=== PATIENT | female | born 1980 | race Caucasian/White ===

== ENCOUNTER 2021-06-19 09:13 | Emergency (ER) | payer MEDICAID, SELFPAY ==
[2021-06-19 09:23] VITALS: BP 155/92; PULSE 94; RESP 16; TEMP 36.4; O2SAT 97
--- NOTE | 2021-06-19 09:30 | DI.RAD_ITS ---
Exam(s) XR ELBOW LT COMPLETE XR HUMERUS LT EXAM: XR HUMERUS LT CLINICAL HISTORY: fall with upper arm pain TECHNIQUE: COMPARISON: CR XR ELBOW LT COMPLETE from 06/19/2021 FINDINGS: Two views of the humerus and three views of the elbow were obtained. There is no evidence of an elbo w joint effusion or hemarthrosis. No fracture is identified. IMPRESSION: RADIATION DOSE DELIVERED: Total DLP
[2021-06-19] MEDS: Ketorolac 30 MG/ML VIAL IM (10:23)
--- NOTE | 2021-06-19 10:33 | ED.GENADUL_ITS ---
Discharge Plan Disposition Patient Disposition: HOME Condition: Stable Discharge Details Clinical Impression: Pain of upper arm after trauma Primary Care Provider: Unknown,Unknown ED Provider: Raul You Home Meds and New Rx's Prescriptions: New ibuprofen [IBU] 600 mg tablet 600 mg PO QID PRN (Reason: pain) Qty: 20 0RF Discharge Instructions Instructions: Arm Pain (ED) Additional Instructions: At time of evaluation no acute fractures were noted for your elbow or upper arm. I suspect that the pain and discomfort may due to slight sprain or strain of the ligaments and muscles of your arm. It is recommended that you take [id number] acetaminophen as needed for discomfort. I have prescribed you ibuprofen as needed but please do not take this until after 6 PM today due to the medication you were given in the emergency department. If you are not improving in the next week please contact your primary care provider for reassessment and potential repeat imaging if needed. Please use the sling for comfort but remove the sling 3-4 times daily and perform range of motion and recommended not to use sling more than 3 days unless absolutely necessary. For any new or significant worsening of symptoms please return to the emergency department for reassessment. Discharge Data Discharge Date/Time-TO BE ENTERED AT DEPARTURE: 06/19/21 10:52 Medical Decision Making Patient presenting to the emergency department for chief complaint of fall. Patient reports left elbow and upper extremity discomfort. Patient does have painful range of motion but intact range of motion to upper extremity but states significant pain. Patient has diffuse tenderness and given amount of discomf ort plan to do radiological imaging to rule out fracture. Reviewed radiological imaging and shows no acute findings. Suspect strain/sprain of upper extremity conservative management was discussed and patient placed in sling with discussion of range of motion activities while in sling. After discussion of diagnosis and plan of care patient has no further needs, questions, or concerns and states clear understanding to return to the emergency department for any worsening symptoms. Imaging Data Radiologic Study: Imaging: X-Ray Radiologist's impression: FINDINGS: Two views of the humerus and three views of the elbow were obtained. There is no evidence of an elbow joint effusion or hemarthrosis. No fracture is identified. HPI General Mode of arrival: ambulatory . Date/Time Provider Initiated Documentation: 06/19/21 09:29 . Limitations to Documentation: no limitations . Information obtained by: patient . History of Present Illness 41 year old F presents to the emergency department with the chief complaint of fall left arm injury, described as moderate, with intensity rated at 7. Quality is described as aching, and is localized to the left and upper extremity. Patient reports no radiation. Patient started experiencing this day(s) (1) and it has been constant. improves with Immobilization improves symptom(s), Movement worsens symptoms . Patient notes no other symptoms.. Patient did receive the following treatments prior to arrival, none Related Data Home Medications Medication Instructions Recorded Confirmed ibuprofen 600 mg tablet (IBU) 600 mg PO QID PRN #20 tab 06/19/21 Previous Rx's Medication Instructions Recorded ibuprofen 600 mg tablet (IBU) 600 mg PO QID PRN #20 tab 06/19/21 Allergies Allergy/AdvReac Type Severity Reaction Status Date / Time No Known Allergies Allergy Unverified 06/19/21 09:26 General Stated Complaint: Orthopedic AGUSTIN: 4 Review of Systems Cardiovascular Cardiovascular: Denies chest pain, Denies syncope and Denies dyspnea Respiratory Respiratory: Denies dyspnea Gastrointestinal Gastrointestinal: Denies abdominal pain Musculoskeletal Musculoskeletal: Reports as per HPI, Denies numbness and Denies tingling Integumentary/Breasts Skin/Breast: Denies rash, Denies sores and Denies wounds Neurologic Neurologic: Denies syncope, Denies numbness and Denies tingling PFSH All Active Problems (Updated 06/19/21 @ 10:36 by Raul You NP) Pain of upper arm after trauma (Acute) Social History Smoking/Tobacco Use Status: Current every day Smoking risk assessment performed?: Yes Alcohol Intake: current Substance use type: does not use Do you feel safe at home: Yes Do you feel safe in your relationship?: Yes Exam Const General: cooperative and no acute distress Orientation: alert, awake and oriented x3 Resp Effort & Inspection: normal respiratory effort and able to speak in complete sentences Cardio Rate: regular rate Rhythm: regular rhythm Pulses: radial pulses present Extrem General: normal exam except as noted Left upper extremity: normal capillary refill, shoulder/upper arm Details: tenderness, elbow/forearm Details: tenderness Location: of the olecranon and normal ROM; Negative for no abrasions and no lacerations, wrist Details: normal to inspection and hand Details: normal to inspection; No no edema Course Vital Signs Vital signs: Vital Signs Temperature 36.4 C L 06/19/21 09:23 Pulse 94 H 06/19/21 09:23 Respiratory Rate 16 06/19/21 09:23 Blood Pressure 155/92 H 06/19/21 09:23 Pulse Oximetry 97 06/19/21 09:23 Temperature 36.4 C L 06/19/21 09:23 Temperature Source Skin 06/19/21 09:23 Pulse 94 H 06/19/21 09:23 Respiratory Rate 16 06/19/21 09:23 Respiratory Effort 06/19/21 09:27 Blood Pressure 155/92 H 06/19/21 09:23 Blood Pressure Position Sitting 06/19/21 09:23 Pulse Oximetry 97 06/19/21 09:23 Oxygen Delivery Method Room Air 06/19/21 09:23 Oxygen Flow Rate 0 06/19/21 09:23 Pain Level 7 06/19/21 10:23
== END 2021-06-19 10:52 | disposition home or self-care (01) ==
PROVIDERS: Emergency Provider Nurse Practitioner Family
DX: M25.522 Pain in left elbow (principal); W18.39XA Other fall on same level, initial encounter
CPT/HCPCS: 96372; 99284; 73060; 73080; 99283; J1885

== ENCOUNTER 2021-07-22 17:08 | Emergency (ER) | payer MEDICAID, SELFPAY ==
[2021-07-22 17:14] VITALS: BP 165/106; PULSE 95; RESP 14; TEMP 36.6; O2SAT 99
--- NOTE | 2021-07-22 17:26 | NUR.NOTE ---
Referral to establish care for PCP done and noted
--- NOTE | 2021-07-22 17:28 | ED.GENADUL_ITS ---
Discharge Plan Disposition Patient Disposition: HOME Condition: Good Discharge Details Clinical Impression: Elbow pain, left Primary Care Provider: Cecily,Local ED Provider: Nehal Mathis Home Meds and New Rx's Prescriptions: Continued acetaminophen [Acetaminophen Extra Strength] 500 mg Tablet 1,000 mg PO Q6H PRN0RF Discharge Instructions Instructions: Arthralgia (ED) Additional Instructions: Concerned that you have persistent pain after fall from 1 month ago. Your exam is not consistent with your fracture at this time. Images from previous visit was reviewed. I would like you to try an anti-inflammatory, preferably Aleve, twice a day for the next 7 days. Please encourage rest, ice or heat, elevation. A referral for physical therapy is attached. I have also asked our care management to assist in establishing local primary care for continued management of your elbow discomfort. If you develop numbness/tingling, pain, fever/chills or other new/worsening symptoms please seek care urgently once again. Stand Alone Forms: Physical Therapy Referral Medical Decision Making Patient is a pleasant [id number] 41-year-old female presents today for reevaluation of her left elbow. Patient was seen here 1 month ago for the same after fall. At that time, imaging was obtained and found to be without sign ificant abnormality. Patient reports that she does not have a local primary care, yet she has not had any follow-up. States that she has found beneficial. Has not been taking any NSAIDs or acetaminophen to help with her discomfort. States that the pain can wax and wane based on her activity level but does account occasion the pain can be quite significant. She denies any numbness or tingling. No other symptoms associated with her elbow discomfort. On exam, patient appears nontoxic. Exam of the left upper extremity shows full range of motion of the shoulder, wrist, elbow, hand. Neurovascularly intact. Her pain is directly over the posterior olecranon. No pain over the medial or lateral epicondyles. She has no pain with supination or pronation against resistance. Pain with palpation over the olecranon but no erythema, swelling coloration, palpable deformity. She is able to extend and resist against resistance with no appreciable defect. Patient I discussed her acute on chronic discomfort. Advised that NSAID for the next few days would likely be of benefit. I encouraged rest, ice, elevation. Given length of discomfort, I do feel that physical therapy would be appropr iate. As patient does not have a local primary care, I have also asked care management to refer to local PCP. Return cautions were discussed. All the questions and concerns were addressed and she is in agreement this plan. HPI General Date/Time Provider Initiated Documentation: 07/22/21 17:14 . Limitations to Documentation: no limitations . Information obtained by: patient, RN notes reviewed and old records reviewed . History of Present Illness 41 year old F presents to the emergency department with the chief complaint of posterior left elbow , described as severe, with intensity rated at 8. Quality is described as aching, and is localized to the left and upper extremity. Patient reports no radiation. Patient started experiencing this month(s) and it has been constant. improves with other things that improve symptom(s), (hot pack) Movement worsens symptoms . Patient notes no other symptoms.. Patient did receive the following treatments prior to arrival, heat therapy Related Data Home Medications Medication Instructions Recorded Confirmed acetaminophen 500 mg tablet 1,000 mg PO Q6H PRN 07/22/21 07/22/21 (Acetaminophen Extra Strength) Allergies Allergy/AdvReac Type Severity Reaction Status Date / Time No Known Allergies Allergy Unverified 06/19/21 09:26 General Stated Complaint: Orthopedic AGUSTIN: 4 Review of Systems Constitutional Constitutional: Reports as per HPI, Denies chills and Denies fever(s) Cardiovascular Cardiovascular: Reports as per HPI Respiratory Respiratory: Reports as per HPI and Denies cough Musculoskeletal Musculoskeletal: Reports as per HPI and Denies tingling Integumentary/Breasts Skin/Breast: Reports as per HPI, Denies rash and Denies wounds Neurologic Neurologic: Reports as per HPI, Denies tingling and Denies paresthesias [facility] All Active Problems (Updated 07/22/21 @ 17:40 by MCKENZIE Gonzales) Elbow pain, left (Acute) Social History Smoking/Tobacco Use Status: Current every day Smoking risk assessment performed?: Yes Alcohol Intake: current Alcohol Intake frequency: holidays/special occasions only Alcohol type: beer Drug use: Never Substance use type: does not use Do you feel safe at home: Yes Do you feel safe in your relationship?: Yes Exam Const General: cooperative, healthy appearing, comfortable, no acute distress, well developed and well groomed Nutritional Appearance: well nourished and overweight Orientation: alert and awake Resp Effort & Inspection: normal respiratory effort, able to speak in complete sentences and no respiratory distress Cardio Rate: regular rate Rhythm: regular rhythm Skin General skin exam: no rashes or lesions noted Lesions: no lesions Rashes: no rashes Trauma: no lacerations or abrasions Neuro General: patient alert and patient awake Cognition: normal cognition Speech: speech normal Gait: normal gait Motor: muscle tone normal throughout Sensory Exam: no sensory deficits noted Extrem Elbow/forearm/wrist images: 1. Area of maximal discomfort is directly over the left olecranon. Full range of motion of shoulder, elbow, wrist, hand. Neurovascularly intact. 2+ distal pulse, intact capillary refill. Patient has full intact neurologic exam in her hand. She has no pain over the medial or lateral epicondyles. Pain elicited with palpation over the olecranon. She has 5-5 strength with extension and flexion, no palpable defect, no swelling, erythema Psych Appearance: grossly normal and well kempt Mental Status: mental status grossly normal Speech and Movement: speech and movement normal Course Vital Signs Vital signs: Vital Signs Temperature 36.6 C 07/22/21 17:14 Pulse 95 H 07/22/21 17:14 Respiratory Rate 14 07/22/21 17:14 Blood Pressure 165/106 H 07/22/21 17:14 Pulse Oximetry 99 07/22/21 17:14 Temperature 36.6 C 07/22/21 17:14 Temperature Source Oral 07/22/21 17:14 Pulse 95 H 07/22/21 17:14 Respiratory Rate 14 07/22/21 17:14 Respiratory Effort Non-Labored 07/22/21 17:18 Blood Pressure 165/106 H 07/22/21 17:14 Blood Pressure Position Sitting 07/22/21 17:14 Pulse Oximetry 99 07/22/21 17:14 Oxygen Delivery Method Room Air 07/22/21 17:14 Oxygen Flow Rate 0 07/22/21 17:14 Pain Level 8 07/22/21 17:14 PAWSS Have you Been Recently Intoxicated or Drunk Within the Last 30 days?: No Have you Ever Experienced Previous Episodes of Alcohol Withdrawal?: No Have you ever Experienced Withdrawal Seizures?: No Have you ever Experienced Delirium Tremens(DT)s?: No Have you ever undergone Alcohol Rehabilitation Treatment (i.e, inpt ot outpatient treatment programs)?: No Have you ever Experienced Blackouts?: No Have you ever Combined Alcohol with other Downers within the last 90 days?: No Have you ever Combined Alcohol with any other Substance of Abuse during the last 90 days?: No Positive Blood Alcohol level on Presentation? [PCS.BAL]: No Evidence of Increased Autonomic Activity (i.e. HR>120, tremor, sweating, agitation, nausea)?: No Result: 0
[2021-07-22] MEDS: Acetaminophen 325 MG TAB 650 MG PO (17:44)
[2021-07-22] MEDS: Naproxen 250 MG TAB PO (17:44)
== END 2021-07-22 17:50 | disposition home or self-care (01) ==
PROVIDERS: Emergency Provider Physician Assistant
DX: M25.522 Pain in left elbow (principal)
CPT/HCPCS: 99282

== ENCOUNTER 2021-07-24 15:12 | Outpatient (REF) | payer MEDICAID, SELFPAY ==
--- NOTE | 2021-07-24 12:45 | PAPFT_PTH ---
PATIENT: Hilda Garcia LOC: [facility] U#:[id number] AGE/SX: 41/F ROOM: RE07/24/[address]: Iveth Knowles NP : 1980 BED: DIS: 07/24/2021 SPEC #: [id number] RECD: 07/24/21 18:08 STATUS: JESSIE PUENTES #: [id number] PATTI: 07/24/21 12:[address]: Iveth Knowles [facility]PT: [facility] Cytology RECD BY: Jesi Otero ENTERED: 07/24/21 18:09 SP TYPE: PAPFT BONGHR DR: Lynette Sosa APRN Tissues: 1 - CX/ENDOCX FOR PAP SMEARS Procedures: PAP THIN PREP/[facility] Screening HPV DNA PROBE Comments: [id number] (HPV 16 & 18/45)
[2021-07-24 19:02] LABS: HCT 36.9 % (36.0-46.0); HGB 12.3 g/dL (11.2-15.7); MCH 32.8 pg (27.0-33.0); MCHC 33.3 % (32.0-36.0); MCV 98.4 fL (80-95); MPV 12.4 fL (8.0-11.0); Platelet Count 263 10^3/uL (130-400); RBC 3.75 10^6/uL (3.93-5.22); RDW 13.3 % (11.7-14.6); RDW-SD 47.9 fL; WBC 8.53 10^3/uL (4.4-10.8)
[2021-07-24 19:52] LABS: TSH 0.77 uIU/mL (0.36-3.74)
== END 2021-07-24 15:13 | disposition home or self-care (01) ==
LOC: LBN 15:12
PROVIDERS: Visit Provider Nurse Practitioner Family
DX: N92.5 Other specified irregular menstruation (principal); Z12.4 Encounter for screening for malignant neoplasm of cervix; R87.810 Cervical high risk human papillomavirus (HPV) DNA test positive; Z11.51 Encounter for screening for human papillomavirus (HPV)
CPT/HCPCS: 85027; 88142; 84443; 87624

== ENCOUNTER 2021-08-19 10:04 | Emergency (ER) | payer MEDICAID, SELFPAY ==
[2021-08-19 10:08] VITALS: BP 174/101; PULSE 83; RESP 17; TEMP 36.6; O2SAT 99
--- NOTE | 2021-08-19 10:27 | W.ED.GENAD ---
Discharge Plan Disposition Patient Disposition: HOME Condition: Improving Discharge Details Chief Complaint: DentalOral Clinical Impression: Pain, dental Primary Care Provider: Lynette Sosa ED Provider: Willie Amin Home Meds and New Rx's Prescriptions: No Action acetaminophen [Acetaminophen Extra Strength] 500 mg Tablet 1,000 mg PO Q6H PRN0RF Discharge Instructions Instructions: Toothache (ED) Additional Instructions: Please try to contact [facility] at , [facility] for urgent evaluation by dentist. You could also try Dr. Suárez at , [address] . Please return to the emergency department if you develop facial swelling redness worsening uncontrolled pain fevers or other abnormal symptoms Medical Decision Making 41-year-old female presents with right upper and right lower molar dental pain over the past 2 weeks, no fever chills nausea vomiting swelling or redness, evidence of chronic appearing dental fractures right upper and right lower molar most posteriorly, no evidence of periapical abscess no evidence of deep space infection of head or neck. Nontoxic. Her dentist is booked for several weeks, will encourage dental follow-up as she will likely need a root canal, will provide bupivacaine dental block for temporary comfort, counseled patient to use appropriate doses of ibuprofen and acetaminophen as needed. Return for signs of infection. 2 cc of 0.5% bupivacaine periapical block right upper molar, 2 cc of 0.5% bupivacaine periapical and inferior alveolar block right lower molar. Patient encouraged to follow-up with dental referrals. HPI General Date/Time Provider Initiated Documentation: 08/19/21 10:05. HPI Narrative: 41-year-old female presents with 2 weeks of dental pain right upper and right lower molars, denies fevers chills purulent drainage swelling or redness to face, no recent trauma, remotely fractured upper back molar Related Data Home Medications Medication Instructions Recorded Confirmed acetaminophen 500 mg tablet 1,000 mg PO Q6H PRN 07/22/21 08/19/21 (Acetaminophen Extra Strength) Allergies Allergy/AdvReac Type Severity Reaction Status Date / Time No Known Allergies Allergy Unverified 08/19/21 10:15 General Stated Complaint: DentalOral AGUSTIN: 4 Review of Systems Narrative: Review of Systems Constitutional: negative Eyes: negative ENT: Dental pain Cardiovascular: negative Respiratory: negative Gastrointestinal: negative : negative Musculoskeletal: negative Skin: negative Neurologic: negative Psych: negative PFSH All Active Problems (Updated 08/19/21 @ 10:50 by Willie Amin MD) Pain, dental (Acute) Elbow pain, left (Acute) Family History (Updated 07/26/21 @ 10:11 by Aundrea Wyatt) Mother No problems noted. Father No problems noted. Sister No problems noted. Brother No problems noted. Son No problems noted. Son No problems noted. Daughter No problems noted. Maternal Grandmother , 85 No problems noted. Social History (Updated 07/26/21 @ 10:10 by Aundrea Wyatt) Smoking/Tobacco Use Status: Current every day Tobacco Type: cigarettes Tobacco: How many years used: 5 Quit status: not considering quitting Second Hand Exposure: No Smoking risk assessment performed?: Yes Alcohol Intake: current Alcohol Intake frequency: holidays/special occasions only Drug use: Never Substance use type: does not use Household members: significant other Communication Needs: None Do you need help understanding health information?: Never Pets and animals: No Sexually active: Yes Do you think of yourself as: straight/heterosexual Current gender identity: male What is your relationship status?: refused to answer How often do you talk on the phone with friends or family?: decline to answer How often do you get together with friends or relatives?: decline to answer How often do you attend adventism or methodist services?: decline to answer Do you belong to any clubs or organized social groups?: decline to answer Panel score (0-1 are the most socially isolated patients): 0 What type of physical activity do you participate in: walking Duration: 15-30 minutes/day Frequency: 1-2 times per week Genevieve/Yazdanism: Temple Special genevieve needs: No Helmet use: No Drive intox or ride w/intox trolley 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 driver: No Do you feel safe at home: Yes Do you feel safe in your relationship?: Yes Exam Narrative Exam Narrative: Physical Examination General: alert, awake, cooperative, resting comfortably, no acute distress HEENT: Evidence of old dental fracture right upper molar most posteriorly, evidence of fractured molar right inferior molar most posteriorly, no induration or swelling to suggest periapical abscess or deep space infection ; normal voice tolerating secretions; atraumatic; PERRL, EOM intact, conjunctiva normal; no nasal discharge; moist mucous membranes, oral and pharyngeal mucosa normal, tolerating secretions Neck: supple, trachea midline; full ROM; no swelling to head or neck Chest: normal to inspection Respiratory: normal respiratory effort, speaking in full sentences, clear to auscultation, no wheezing, rales or rhonchi Cardiac: regular rate, regular rhythm, S1S2 intact, no murmurs rubs or gallops GI: abdomen soft, non-tender, non-distended; no palpable mass or hepatosplenomegaly Skin: no lesions, rashes or trauma appreciated Neuro: AAOx3, normal speech, moving all extremities Psych: Appropriate mood and affect Course Vital Signs Vital signs: Vital Signs Temperature 36.6 C 08/19/21 10:08 Pulse 83 08/19/21 10:08 Respiratory Rate 17 08/19/21 10:08 Blood Pressure 174/101 H 08/19/21 10:08 Pulse Oximetry 99 08/19/21 10:08 Temperature 36.6 C 08/19/21 10:08 Pulse 83 08/19/21 10:08 Respiratory Rate 17 08/19/21 10:08 Respiratory Effort Non-Labored 08/19/21 10:12 Blood Pressure 174/101 H 08/19/21 10:08 Blood Pressure Position Sitting 08/19/21 10:08 Pulse Oximetry 99 08/19/21 10:08 Oxygen Delivery Method Room Air 08/19/21 10:08 Oxygen Flow Rate 0 08/19/21 10:08 Pain Level 10 08/19/21 10:12 PAWSS Have you Been Recently Intoxicated or Drunk Within the Last 30 days?: No Have you Ever Experienced Previous Episodes of Alcohol Withdrawal?: No Have you ever Experienced Withdrawal Seizures?: No Have you ever undergone Alcohol Rehabilitation Treatment (i.e, inpt ot outpatient treatment programs)?: No Have you ever Experienced Blackouts?: No Have you ever Combined Alcohol with other Downers within the last 90 days?: No Have you ever Combined Alcohol with any other Substance of Abuse during the last 90 days?: No Positive Blood Alcohol level on Presentation? [PCS.BAL]: No Evidence of Increased Autonomic Activity (i.e. HR>120, tremor, sweating, agitation, nausea)?: No Result: 0
[2021-08-19] MEDS: Bupivacaine 0.5% Pres-Free 30 ML VIAL IJ (10:55)
== END 2021-08-19 10:53 | disposition home or self-care (01) ==
PROVIDERS: Emergency Provider Emergency Medicine
DX: K08.89 Other specified disorders of teeth and supporting structures (principal)
CPT/HCPCS: 64400

== ENCOUNTER 2021-08-24 19:31 | Emergency (ER) | payer MEDICAID, SELFPAY ==
[2021-08-24 19:47] VITALS: BP 164/104; PULSE 93; RESP 18; TEMP 36.6; O2SAT 98
--- NOTE | 2021-08-24 20:21 | W.ED.GENAD ---
Discharge Plan Disposition Patient Disposition: HOME Condition: Improving Discharge Details Clinical Impression: Pain, dental Primary Care Provider: Lynette Sosa ED Provider: Gamal Huynh Home Meds and New Rx's Prescriptions: New amoxicillin 875 mg tablet 875 mg PO BID Qty: 20 0RF Continued acetaminophen [Acetaminophen Extra Strength] 500 mg Tablet 1,000 mg PO Q6H PRN0RF Discharge Instructions Instructions: Toothache (ED) Additional Instructions: Amoxicillin as directed. Cool and/or warm compresses every 2 hours for 20 minutes. HurriCaine gel as directed. Salt water swish and spit as tolerated. I strongly recommend she quit smoking. Please watch for new or worsening symptoms and return to the ER for any concerns. Lastly, please contact your dentist and all of the dentist on the dental list on Thursday to see if they can see you sooner than your scheduled appointment in October. Medical Decision Making 41-year-old female, current smoker, reports acute on chronic dental pain for at least the past 3 weeks. She was seen in the ER 5 days ago, given a dental block, treating self therapeutically with Tylenol and Motrin, but reports it is not improving. Clinically she appears well, nontoxic. She tells me that the 2 dental fractures are not new. Given her ongoing discomfort, we discussed the risks and benefits of initiating antibiotic therapy she is open to this. She understands that a dental block is temporary, instead will provide HurriCaine gel for topical application. First dose of amoxicillin was also provided. First dose of amoxicillin given. Patient states that she was already given a dental list, contacted all of her dentist on the list and cannot be seen until October. Standard discharge and return precautions were provided. Patient understands, is agreeable to this plan, and has no additional questions or concerns upon discharge. This documentation was generated using Kitchenbugation system, please disregard any oddities of phrase or misspellings. Medical Records Medical records reviewed: Yes I reviewed the patient's medical records. HPI General Mode of arrival: ambulatory. Date/Time Provider Initiated Documentation: 08/24/21 20:07. Limitations to Documentation: no limitations. Information obtained by: patient. History of Present Illness 41 year old F presents to the emergency department with the chief complaint of R sided dental pain, described as moderate, with intensity rated at 7. Quality is described as aching, and is localized to the mouth. Patient reports no radiation. Patient started experiencing this week(s) (3) improves with No relieving factors improve symptom(s), Eating worsens symptoms . Patient notes no other symptoms.. Patient did receive the following treatments prior to arrival, NSAID Related Data Home Medications Medication Instructions Recorded Confirmed acetaminophen 500 mg tablet 1,000 mg PO Q6H PRN 07/22/21 08/19/21 (Acetaminophen Extra Strength) amoxicillin 875 mg tablet 875 mg PO BID #20 tab 08/24/21 Previous Rx's Medication Instructions Recorded amoxicillin 875 mg tablet 875 mg PO BID #20 tab 08/24/21 Allergies Allergy/AdvReac Type Severity Reaction Status Date / Time No Known Allergies Allergy Unverified 08/19/21 10:15 General Stated Complaint: DentalOral AGUSTIN: 4 Review of Systems Constitutional Constitutional: Denies fever(s) and Denies headache(s) ENT Ears, Nose, Mouth, and Throat: Denies headache(s), Denies neck pain and Denies sore throat Musculoskeletal Musculoskeletal: Denies neck pain Integumentary/Breasts Skin/Breast: Denies rash Neurologic Neurologic: Denies headache(s) PFSH All Active Problems Pain, dental (Acute) Family History Mother No problems noted. Father No problems noted. Sister No problems noted. Brother No problems noted. Son No problems noted. Son No problems noted. Daughter No problems noted. Maternal Grandmother , 85 No problems noted. Social History Smoking/Tobacco Use Status: Current every day Tobacco Type: cigarettes Tobacco: How many years used: 5 Quit status: not considering quitting Second Hand Exposure: No Smoking risk assessment performed?: Yes Alcohol Intake: current Alcohol Intake frequency: holidays/special occasions only Drug use: Never Substance use type: does not use Household members: significant other Communication Needs: None Do you need help understanding health information?: Never Pets and animals: No Sexually active: Yes Do you think of yourself as: straight/heterosexual Current gender identity: male What is your relationship status?: refused to answer How often do you talk on the phone with friends or family?: decline to answer How often do you get together with friends or relatives?: decline to answer How often do you attend synagogue or latter day services?: decline to answer Do you belong to any clubs or organized social groups?: decline to answer Panel score (0-1 are the most socially isolated patients): 0 What type of physical activity do you participate in: walking Duration: 15-30 minutes/day Frequency: 1-2 times per week Genevieve/Anglican: Gnosticism Special genevieve needs: No Helmet use: No Drive intox or ride w/intox electric train driver: No Do you feel safe at home: Yes Do you feel safe in your relationship?: Yes Exam Const General: cooperative, healthy appearing, comfortable and no acute distress Orientation: alert and awake HENMT Head: normal to inspection, normocephalic and atraumatic Ears: external ears normal, TM's normal bilaterally and EAC's normal Face and sinus: normal facial exam Mouth: oral mucosae normal and moist mucous membranes Teeth and gingiva: poor dentition Teeth image: 1. Dental fracture 2. Dental fracture Throat: posterior oropharynx normal Other: Patient with 2 right inferior dental fractures, per patient these are not new. There is diffuse tenderness from tooth [address] 31. There is no obvious erythema, swelling, pointing abscess. There is no asymmetry. No trismus Eyes General: appearance normal, both eyes and all related structures Conjunctivae: conjunctivae normal Neck Neck: normal visual inspection, full ROM, no lymphadenopathy, no meningeal signs, trachea midline and supple Resp Effort & Inspection: normal respiratory effort and able to speak in complete sentences Skin General skin exam: no rashes or lesions noted Neuro General: patient alert, patient awake, moves all extremities and no focal motor deficits Cognition: normal cognition Speech: speech normal Gait: normal gait Sensory Exam: no sensory deficits noted Psych Appearance: grossly normal Mental Status: mental status grossly normal Course Vital Signs Vital signs: Vital Signs Temperature 36.6 C 08/24/21 19:47 Pulse 93 H 08/24/21 19:47 Respiratory Rate 18 08/24/21 19:47 Blood Pressure 164/104 H 08/24/21 19:47 Pulse Oximetry 98 08/24/21 19:47 Temperature 36.6 C 08/24/21 19:47 Temperature Source Tympanic 08/24/21 19:47 Pulse 93 H 08/24/21 19:47 Respiratory Rate 18 08/24/21 19:47 Respiratory Effort 08/24/21 19:49 Blood Pressure 164/104 H 08/24/21 19:47 Blood Pressure Position Supine 08/24/21 19:47 Pulse Oximetry 98 08/24/21 19:47 Oxygen Delivery Method Room Air 08/24/21 19:47 Oxygen Flow Rate 0 08/24/21 19:47 Pain Level 10 08/24/21 19:47 PAWSS Have you Been Recently Intoxicated or Drunk Within the Last 30 days?: No Have you Ever Experienced Previous Episodes of Alcohol Withdrawal?: No Have you ever Experienced Withdrawal Seizures?: No Have you ever Experienced Delirium Tremens(DT)s?: No Have you ever undergone Alcohol Rehabilitation Treatment (i.e, inpt ot outpatient treatment programs)?: No Have you ever Experienced Blackouts?: No Have you ever Combined Alcohol with other Downers within the last 90 days?: No Have you ever Combined Alcohol with any other Substance of Abuse during the last 90 days?: No Positive Blood Alcohol level on Presentation? [PCS.BAL]: No Evidence of Increased Autonomic Activity (i.e. HR>120, tremor, sweating, agitation, nausea)?: No Result: 0
[2021-08-24] MEDS: Benzocaine 20% Gel 30 GM JAR MM (20:26)
[2021-08-24] MEDS: Amoxicillin 875 MG TAB PO (20:26)
== END 2021-08-24 20:29 | disposition home or self-care (01) ==
PROVIDERS: Emergency Provider Physician Assistant
DX: K08.89 Other specified disorders of teeth and supporting structures (principal)
CPT/HCPCS: 99283

== ENCOUNTER → 2021-08-26 00:36 | Outpatient (CLI) | payer MEDICAID, SELFPAY ==
--- NOTE | 2021-08-26 06:45 | DI.US_ITS ---
Exam(s) US PELVIS TRANSVAGINAL EXAM: US PELVIS TRANSVAGINAL CLINICAL HISTORY: eval for fibroids, uterine mass,n93.9 TECHNIQUE: Transabdominal and transvaginal imaging was performed using standard protocol. COMPARISON: No exams were available for comparison FINDINGS: KIDNEYS: Kidneys are symmetric in size. No evidence of renal calculi. No evidence of hydronephrosis. No renal mass or cyst identified. UTERUS: Anteverted. 9.3 x 3.6 x 5.6 cm. scar. Endometrium: 11 millimeters, homogeneous. Myometrium: Unremarkable. No fibroids. Cervix: Small nabothian cysts. OVARIES: Right: Cyst or mass: None. Left: Cyst or mass: 1.9 centimeter follicle. DOPPLER: Color: Symmetric and uniform flow to both ovaries. No hyperemia. Duplex: Normal ovarian arterial waveforms visualized. CUL-DE-SAC: Free fluid: None. IMPRESSION: 1. Normal-appearing uterus with endometrial stripe within normal limits. 2. Unremarkable bilateral ovaries. DATA REPOSITORY:
== END ==
PROVIDERS: Visit Provider Nurse Practitioner Family
DX: N93.8 Other specified abnormal uterine and vaginal bleeding (principal); N88.8 Other specified noninflammatory disorders of cervix uteri; N83.02 Follicular cyst of left ovary
CPT/HCPCS: 76830; 76856

== ENCOUNTER 2021-09-20 01:28 | Outpatient (CLI) | payer MEDICAID, SELFPAY ==
[2021-09-20 09:06] LABS: ALT 36 U/L (14-59); AST 16 U/L (15-37); Albumin 3.7 g/dL (3.4-5.0); Alkaline Phosphatase 105 U/L (46-116); Anion Gap 7.7 mmol/L (3-11); BUN 11 mg/dL (7-18); Bilirubin, Total 0.6 mg/dL (0.2-1.0); CO2 27.3 mmol/L (21.0-32.0); CREATININE 0.8 mg/dL (0.55-1.02); Calcium 8.8 mg/dL (8.5-10.1); Calculated LDL 155 mg/dL (<100); Chloride 103 mmol/L (98-107); Cholesterol 214 mg/dL (<200); Glucose 115 mg/dL (74-106); HDL Cholesterol 44 mg/dL (40-60); Potassium 3.9 mmol/L (3.5-5.1); Sodium 138 mmol/L (136-145); Triglyceride 78 mg/dL (<150)
== END 2021-09-20 01:29 | disposition home or self-care (01) ==
LOC: LBO 01:28
DX: Z13.220 Encounter for screening for lipoid disorders (principal); F41.8 Other specified anxiety disorders; Z00.00 Encounter for general adult medical examination without abnormal findings
CPT/HCPCS: 36415; 80053; 80061

== ENCOUNTER → 2021-12-23 11:36 | Outpatient (CLI) | payer MEDICAID, SELFPAY ==
--- NOTE | 2021-12-23 11:45 | DI.RAD_ITS ---
Exam(s) XR KNEE LT 3V AP,LAT,MARCIA EXAM: XR KNEE LT 3V AP,LAT,MARCIA CLINICAL HISTORY: evaluate for effusion. TECHNIQUE: 2D digital imaging was performed. Three views. COMPARISON: No exams were available for comparison FINDINGS: BONES: No acute fracture is present. No bony destructive lesion is seen. JOINTS: Spurring at the articular aspect of the patella, medial femoral condyle medial tibial plateau . Chronic appearing bony densities seen posteriorly. The knee is normally aligned. No joint effusio n is seen. SOFT TISSUE: Normal. IMPRESSION: Mild degenerative changes. No acute abnormality. DATA REPOSITORY: RADIATION DOSE DELIVERED:
--- NOTE | 2021-12-23 12:17 | DI.VRAD_ITS ---
PROCEDURE INFORMATION: Exam: XR Left Knee Exam date and time: 12/23/2021 11:56 AM Age: 41 years old Clinical indication: Patient HX: Left knee pain TECHNIQUE: Imaging protocol: Radiologic exam of the Left knee. Views: 3 views. COMPARISON: No relevant prior studies available. FINDINGS: Bones/joints: No acute fracture or dislocation. Mild osteoarthritis. No suprapatellar joint effusion. Soft tissues: No acute abnormality. IMPRESSION: Mild left knee osteoarthritis. Dictated and Authenticated by: Kimber Bustos MD. Ordering:VANDANA Lazaro MD
== END ==
PROVIDERS: Visit Provider Nurse Practitioner Family
DX: M25.562 Pain in left knee (principal); M76.892 Other specified enthesopathies of left lower limb, excluding foot
CPT/HCPCS: 73562

== ENCOUNTER 2022-01-22 09:44 | Outpatient (CLI) | payer MEDICAID, SELFPAY ==
--- NOTE | 2022-01-22 09:00 | DI.RAD_ITS ---
Exam(s) XR KNEE LT 1V EXAM: XR KNEE LT 1V CLINICAL HISTORY: left knee pain. TECHNIQUE: 2D digital imaging was performed. Three views. COMPARISON: CR,XR XR KNEE LT 3V AP,LAT,MARCIA from 12/23/2021 FINDINGS: BONES: No acute fracture is present. There is mild spurring at the articular aspect of the patella. JOINTS: There is moderate narrowing of the lateral patellofemoral joint and lateral subluxation of th e patella. SOFT TISSUE: Normal. IMPRESSION: Moderate degenerative changes and lateral subluxation at the patellofemoral joint. DATA REPOSITORY: RADIATION DOSE DELIVERED:
== END 2022-01-22 09:45 | disposition home or self-care (01) ==
LOC: DIORS 09:44
PROVIDERS: Visit Provider Physician Assistant
DX: M25.562 Pain in left knee (principal); M17.12 Unilateral primary osteoarthritis, left knee; S83.012A Lateral subluxation of left patella, initial encounter; X58.XXXA Exposure to other specified factors, initial encounter
CPT/HCPCS: 73560

== ENCOUNTER → 2022-01-30 02:02 | Outpatient (CLI) | payer MEDICAID, SELFPAY ==
--- NOTE | 2022-01-30 06:45 | DI.MAMMO_ITS ---
Exam(s) MAMMO SCREENING EXAM: MAMMO SCREENING CLINICAL HISTORY: screening Z12.39 SCREENING FOR BREAST CANCER TECHNIQUE: Bilateral full field digital CC and MLO mammographic images were obtained with 3D tomosyn thesis and utilizing computer aided detection (CAD). COMPARISON: Available for comparison. FINDINGS: Masses/Architectural Distortion: There is a question of an area of architectural distortion in the up per central left breast on the MLO view. Microcalcifications: No suspicious pleomorphic-type are seen. Skin Thickening/Nipple Retraction: None. IMPRESSION: 1. Asymmetric breast tissue in the upper central left breast. This area should be further evaluated with a spot compression view. 2. Ultrasound may be indicated at that time. BI-RADS Category 0 - Assessment Incomplete: Need additional imaging evaluation Breast Density - Category B - Scattered areas of fibroglandular density Breast density category C or D implies that the patient has dense breast tissue. Dense breast tissue is very common and is not abnormal but dense breast tissue can make it harder to find cancer on a ma mmogram. Also, dense breast tissue may increase their breast cancer risk. This information about the result of the mammogram report was provided to the patient to raise their awareness. Use this report when you speak with the patient about their risks for breast cancer, which includes their family hist ory. At that time, you may recommend for more screening tests (Ultrasound or MRI) as they might be us eful based on their risk. A negative radiographic report should not delay biopsy if a dominant or clinically suspicious mass is present. Up to ten percent of cancers are not identified on mammography. A negative report may reinforce clinical impression. Adenosis and dense breasts may obscure an underlying neoplasm. False positive reports average 6 to 10%. Patient will receive a letter notifying them of these results.
== END ==
PROVIDERS: Visit Provider Nurse Practitioner Family
DX: Z12.31 Encounter for screening mammogram for malignant neoplasm of breast (principal); R92.8 Other abnormal and inconclusive findings on diagnostic imaging of breast
CPT/HCPCS: 77063; 77067

== ENCOUNTER → 2022-02-04 03:03 | Outpatient (CLI) | payer MEDICAID, SELFPAY ==
--- NOTE | 2022-02-04 | DI.US_ITS ---
Exam(s) MG MAMMO SCREEN CALL BACK UNI US BREAST LT LIMITED EXAM: MG MAMMO SCREEN CALL BACK UNI and U/S breast LT limited CLINICAL HISTORY: F/U ABNL MAMMO, UPPER CENTRAL LT BREAST ASYMMETRIC BREAST TISSUE,R92.8. TECHNIQUE: Craniocaudal and mediolateral oblique Full Field Digital Mammography views of the left br east with Computer Aided Diagnosis followed by Tomosynthesis and left breast ultrasound. COMPARISON: Comparison is made with prior examinations. FINDINGS: Mammography/Tomosynthesis: Masses/Architectural Distortion: None seen. Microcalcifictions: No suspicious pleomorphic-type are seen. Skin Thickening/Nipple Retraction: None. Limited left breast US: Echotexture: Normal appearance of the glandular tissue. Shadowing: No suspicious foci. Cyst: None. Solid lesions: None seen. Ductal dilation: None. IMPRESSION: 1. No evidence of malignancy is noted. 2. Unless there is more urgent need, follow-up screening mammography is recommended, as per [place] [employer] guidelines. 3. The findings were discussed with the patient on the date of the examination. BI-RADS Category 1 - Negative Breast Density - Category B - Scattered areas of fibroglandular density Breast density Category C or D implies that the patient has dense breast tissue. Dense breast tissue can make it harder to find cancer on a mammogram. Dense breast tissue is also associated with an incr eased risk of breast cancer. This information about the result of the mammogram report was provided to the patient to raise their awareness. Use this report when you speak with the patient about their risks for breast cancer, which includes their family history. At that time, you may recommend additional screening tests (Ultrasoun d or MRI) as these tests may add significant information. A negative radiographic report should not delay biopsy if a dominant or clinically suspicious mass is present. Up to ten percent of cancers are not identified on mammography. A negative report may reinforce clinical impression. Adenosis and dense breasts may obscure an underlying neoplasm. False positive reports average 6 to 10%. Patient will receive a letter notifying them of these results.
== END ==
PROVIDERS: Visit Provider Nurse Practitioner Family
DX: Z12.31 Encounter for screening mammogram for malignant neoplasm of breast (principal); R92.8 Other abnormal and inconclusive findings on diagnostic imaging of breast; N64.59 Other signs and symptoms in breast
CPT/HCPCS: 76642; 77063; 77067

== ENCOUNTER 2022-04-22 09:24 | Outpatient (REF) | payer MEDICAID, SELFPAY ==
[2022-04-22 13:05] LABS: Abs Immature Grans 0.04 10^3/uL (0.0-0.06); Absolute Basophil Count 0.05 10^3/uL (0.0-0.2); Absolute Eosinophil Count 0.14 10^3/uL (0.0-0.7); Absolute Lymphocyte Count 2.03 10^3/uL (1.2-3.4); Absolute Neutrophil Count 6.18 10^3/uL (1.2-6.7); Basophils % 0.6; Eosinophils % 1.5; HCT 40.5 % (36.0-46.0); HGB 13.6 g/dL (11.2-15.7); Immature Grans % 0.4; Lymphocytes % 22.5; MCH 32.5 pg (27.0-33.0); MCHC 33.6 % (32.0-36.0); MCV 97 fL (80-95); MPV 12.2 fL (8.0-11.0); Monocytes % 6.6; Neutrophils % 68.4; Platelet Count 291 10^3/uL (130-400); RBC 4.18 10^6/uL (3.93-5.22); RDW 13.9 % (11.7-14.6); RDW-SD 49.7 fL; WBC 9.04 10^3/uL (4.4-10.8)
[2022-04-22 13:12] LABS: Anion Gap 7.9 mmol/L (3-11); BUN 11 mg/dL (7-18); CO2 25.1 mmol/L (21.0-32.0); CREATININE 0.8 mg/dL (0.55-1.02); Calcium 8.9 mg/dL (8.5-10.1); Chloride 106 mmol/L (98-107); ESR 17 mm/hr (0-20); Estimated GFR 94.87 (mL/min/1.73m2); Glucose 108 mg/dL (74-106); Potassium 4.3 mmol/L (3.5-5.1); Sodium 139 mmol/L (136-145); Uric Acid 6.6 mg/dL (2.6-6.0)
== END 2022-04-22 09:25 | disposition home or self-care (01) ==
LOC: LBN 09:24
PROVIDERS: PCP Nurse Practitioner Family; Visit Provider Nurse Practitioner Family
DX: M25.561 Pain in right knee (principal)
CPT/HCPCS: 80048; 85652; 84550; 85025

== ENCOUNTER 2022-05-12 01:49 | Outpatient (CLI) | payer MEDICAID, SELFPAY ==
--- NOTE | 2022-05-12 07:17 | DI.RAD_ITS ---
Exam(s) XR KNEE RT 3V AP,LAT,MARCIA EXAM: XR KNEE RT 3V AP,LAT,MARCIA CLINICAL HISTORY: RT KNEE pain, swelling, no trauma,M25.561. TECHNIQUE: 2D digital imaging was performed. Three views. COMPARISON: CR,XR XR KNEE LT 3V AP,LAT,MARCIA from 12/23/2021 FINDINGS: BONES: No acute fracture is present. No bony destructive lesion is seen. Spurring at femoral condyles and lateral tibial plateau. JOINTS: Joint spaces are maintained. No joint effusion is seen. SOFT TISSUE: Normal. IMPRESSION: Degenerative changes. DATA REPOSITORY: RADIATION DOSE DELIVERED:
== END 2022-05-12 02:09 ==
PROVIDERS: PCP Nurse Practitioner Family; Visit Provider Nurse Practitioner Family
DX: M17.11 Unilateral primary osteoarthritis, right knee (principal)
CPT/HCPCS: 73562

== ENCOUNTER 2022-10-20 11:40 | Emergency (ER) | payer MEDICAID, SELFPAY ==
[2022-10-20 11:45] VITALS: PULSE 83; RESP 15; TEMP 36.9; O2SAT 100
--- NOTE | 2022-10-20 11:53 | ED.GENADUL_ITS ---
Discharge Plan Disposition Patient Disposition: Home Condition: Stable Discharge Details Clinical Impression: Pain, dental Primary Care Provider: Nick Ritter ED Provider: Valentino Duran Home Meds and New Rx's Prescriptions: New amoxicillin 875 mg tablet 875 mg PO BID Qty: 20 0RF Continued sertraline 50 mg tablet 100 mg PO DAILY Qty: 90 3RF acetaminophen [Acetaminophen Extra Strength] 500 mg Tablet 1,000 mg PO Q6H PRN Discharge Instructions Instructions: Toothache (ED) Additional Instructions: follow up with your dentist as soon as possible if you feel more ill, are unable to swallow liquids or have fevers return to the emergency department Medical Decision Making 42 yo female comes in with right upper posterior molar pain for 2 days. Denies fevers, chills, difficulty swallowing, facial swelling. She arrives stable speaking clearly. She is swallowing and breathing normally. She has a severely eroded right upper posterior molar without associated abscess that I can drain, no facial swelling on exam, normal posterior pharynx with midline uvula, no submandibular swelling or restricted neck movements. No findings to suggest retropharyngeal abscess, pharyngitis, peritonsilar abscess or fly's. Will palce on amoxicillin and advised to f/u with her dentist sajan, return precautions given Differential Diagnosis Differential Diagnosis: caries, dental pain HPI General Mode of arrival: ambulatory . Date/Time Provider Initiated Documentation: 10/20/22 11:43 . Limitations to Documentation: no limitations . Information obtained by: patient . History of Present Illness 42 year old F presents to the emergency department with the chief complaint of dental pain, described as moderate, Quality is described as aching, and it has been constant. No relieving factors improve symptom(s), No exacerbating factors reported . Patient notes no other symptoms.. Patient did receive the following treatments prior to arrival, NSAID Related Data Home Medications Medication Instructions Recorded Confirmed acetaminophen 500 mg tablet 1,000 mg PO Q6H PRN 07/22/21 10/20/22 (Acetaminophen Extra Strength) sertraline 50 mg tablet 100 mg PO DAILY #90 tabs 04/22/22 10/20/22 amoxicillin 875 mg tablet 875 mg PO BID #20 tabs 10/20/22 Previous Rx's Medication Instructions Recorded sertraline 50 mg tablet 100 mg PO DAILY #90 tabs 04/22/22 amoxicillin 875 mg tablet 875 mg PO BID #20 tabs 10/20/22 Allergies Allergy/AdvReac Type Severity Reaction Status Date / Time Buspirone AdvReac Mild Dizziness/L Uncoded 10/20/22 11:47 ighthead General Stated Complaint: DentalOral AGUSTIN: 4 Review of Systems All systems reviewed & are unremarkable except as noted in HPI and below Constitutional Constitutional: Denies chills, Denies fever(s) and Denies weakness Cardiovascular Cardiovascular: Denies chest pain and Denies dyspnea Respiratory Respiratory: Denies cough and Denies dyspnea Gastrointestinal Gastrointestinal: Denies abdominal pain, Denies nausea and Denies vomiting Integumentary/Breasts Skin/Breast: Denies rash Neurologic Neurologic: Denies weakness [facility] All Active Problems (Updated 10/20/22 @ 11:57 by Valentino Duran MD) Pain, dental (Acute) No-show for appointment (Acute) Skin lesion (Acute) right knee, lateral side, raised, firm, tender Right knee pain (Acute) Hyperlipidemia (Chronic) Maltracking of left patella (Acute) 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 Anxiety (Chronic) Abnormal uterine bleeding (Acute) Screening cholesterol level (Acute) Family History Mother No problems noted. Father No problems noted. Sister No problems noted. Brother No problems noted. Son No problems noted. Son No problems noted. Daughter No problems noted. Maternal Grandmother , 85 No problems noted. Social History Smoking/Tobacco Use Status: Current every day Tobacco Type: cigarettes Tobacco: How many years used: 20 Quit status: not considering quitting Second Hand Exposure: No Smoking risk assessment performed?: Yes Alcohol Intake: current Alcohol Intake frequency: holidays/special occasions only Drug use: Never Substance use type: does not use Household members: significant other Communication Needs: None Do you need help understanding health information?: Never Pets and animals: No Sexually active: Yes Do you think of yourself as: straight/heterosexual Current gender identity: female What is your relationship status?: refused to answer How often do you talk on the phone with friends or family?: decline to answer How often do you get together with friends or relatives?: decline to answer How often do you attend confucianism or catholic services?: decline to answer Do you belong to any clubs or organized social groups?: decline to answer Panel score (0-1 are the most socially isolated patients): 0 What type of physical activity do you participate in: walking Duration: 15-30 minutes/day Frequency: 1-2 times per week Genevieve/Latter-Day: Hindu Special genevieve needs: No Helmet use: No Drive intox or ride w/intox motor driver: No Do you feel safe at home: Yes Do you feel safe in your relationship?: Yes History History 3 Para 3 Hx # Term Pregnancies Multiple births Hx # Pregnancies Ectopic pregnancies AB induced Hx Number of Living Children 3 AB spontaneous Past Pregnancies Del. Date GA/Weeks # Preg Succ Route Wgt Sex Labor Lgth Anesth esia Location [facility] 10/22/06 No Male [place] 10/03/11 [place] 01/14/13 No vaginal 2267.962 g Female at home unknown preg Exam Const General: no acute distress Orientation: alert HENMT Head: normal to inspection Ears: external ears normal General nose exam: external nose normal Mouth: moist mucous membranes Eyes General: appearance normal, both eyes and all related structures Neck Neck: normal visual inspection Resp Effort & Inspection: normal respiratory effort and able to speak in complete sentences Cardio Rate: regular rate Skin General skin exam: no rashes or lesions noted Neuro General: patient alert and patient oriented x3 Extrem General: normal to inspection Psych Mental Status: mental status grossly normal Course Vital Signs Vital signs: Vital Signs Temperature 36.9 C 10/20/22 11:45 Pulse 83 10/20/22 11:45 Respiratory Rate 15 10/20/22 11:45 Pulse Oximetry 100 10/20/22 11:45 Temperature 36.9 C 10/20/22 11:45 Temperature Source Temporal Artery Scan 10/20/22 11:45 Pulse 83 10/20/22 11:45 Respiratory Rate 15 10/20/22 11:45 Respiratory Effort Normal 10/20/22 11:49 Blood Pressure Position Sitting 10/20/22 11:45 Pulse Oximetry 100 10/20/22 11:45 Oxygen Delivery Method Room Air 10/20/22 11:45 Oxygen Flow Rate 0 10/20/22 11:45 Pain Level 10 10/20/22 11:49
== END 2022-10-20 12:02 | disposition home or self-care (01) ==
PROVIDERS: Emergency Provider Emergency Medicine; PCP Nurse Practitioner Family
DX: K08.89 Other specified disorders of teeth and supporting structures (principal); K02.9 Dental caries, unspecified
CPT/HCPCS: 99282

== ENCOUNTER 2023-02-20 16:26 | Emergency (ER) | payer MEDICAID, SELFPAY ==
[2023-02-20 16:33] VITALS: BP 176/115; PULSE 89; RESP 20; TEMP 36.9; O2SAT 98
--- NOTE | 2023-02-20 16:40 | W.ED.GENAD ---
Discharge Plan Disposition Patient Disposition: Home Discharge Details Chief Complaint: RespSymp Clinical Impression: COVID-19 Primary Care Provider: Nick Ritter ED Provider: Lele Corrigan Home Meds and New Rx's Prescriptions: No Action sertraline 100 mg tablet 200 mg PO DAILY Qty: 180 3RF magnesium oxide 400 mg magnesium capsule 400 mg PO QHS Qty: 90 3RF Rx Instructions: take for at least 6 weeks riboflavin (vitamin B2) 100 mg tablet 200 mg PO BID Qty: 360 1RF Rx Instructions: take for at least 6 weeks rizatriptan [Maxalt-ERGONOMICS CONSULTANT] 10 mg tablet,disintegrating 10 mg PO ONCE PRN (Reason: migraine headache) Qty: 14 1RF amlodipine 5 mg tablet 5 mg PO DAILY Qty: 90 4RF acetaminophen [Acetaminophen Extra Strength] 500 mg Tablet 1,000 mg PO Q6H PRN Discharge Instructions Instructions: COVID-19 (Coronavirus Disease 2019) (ED) Additional Instructions: At this time you are positive for COVID-19. The test that was performed here is a PCR test which is more sensitive than the home test. Please take the Paxlovid as directed on the package. Please only take 2.5 mg of your amlodipine daily while on the Paxlovid as they can cause a slight interaction. If you notice any worsening of your symptoms, or any new symptoms such as vomiting, diarrhea, fever, chills, shortness of breath, chest pain, numbness, weakness, or fainting , please return immediately to the emergency department for reevaluation. Please follow up with your primary care provider as soon as possible for reassessment and reevaluation. As always, it was a pleasure participating in your medical care today. Referrals: Nick Ritter, REMOTE SENSING ADVISOR [Primary Care Provider] - Medical Decision Making 43-year-old female with a past medical history of tobacco use, high cholesterol, hypertension, who currently actively smokes, presents today for evaluation of runny nose congestion sore throat mild cough that began this morning. She did get her flu shot 2 weeks ago. She denies any chest pain or shortness of breath. She denies any headache. She admits to mild pain in the back of her throat. Cough is mild and nonproductive. No other complaints at this time. She did take Tylenol with mild improvement of her symptoms. No other modifying factors. No hemoptysis. Exam demonstrates well-appearing female. No significant erythema swelling or edema in the posterior oropharynx. Lungs are clear. Vital signs stable aside for mild hypertension. Symptoms appear consistent with mild viral upper respiratory infection. Will test for flu COVID and RSV. We will give Motrin, will test for strep, monitor closely and reassess. No severe fatigue to suggest mono. 5:38 PM COVID test has returned positive. Flu and RSV are negative. Patient otherwise stable. Discussed diagnosis, as well as treatment options. Patient has requested to start Paxlovid therapy. Medications were reviewed. We will recommend decreasing amlodipine by 50% of its dose while on Paxlovid. Discussed red flags for which to return. I have extensively reviewed the treatment plan and discharge instructions with the patient and their family. I have addressed all patient concerns at this time. The patient and family was made aware of what symptoms to monitor for that would warrant a return to the emergency department. Discussed the plan with the patient and family, they demonstrate verbal understanding and agreement with our assessment and plan at this time. The documentation in this chart was dictated using [employer] dictation software. Please excuse any dictation errors. HPI General Date/Time Provider Initiated Documentation: 02/20/23 16:39. HPI Narrative: 43-year-old female with a past medical history of tobacco use, high cholesterol, hypertension, who currently actively smokes, presents today for evaluation of runny nose congestion sore throat mild cough that began this morning. She did get her flu shot 2 weeks ago. She denies any chest pain or shortness of breath. She denies any headache. She admits to mild pain in the back of her throat. Cough is mild and nonproductive. No other complaints at this time. She did take Tylenol with mild improvement of her symptoms. No other modifying factors. No hemoptysis. Related Data Home Medications Medication Instructions Recorded Confirmed acetaminophen 500 mg tablet 1,000 mg PO Q6H PRN 07/22/21 02/20/23 (Acetaminophen Extra Strength) sertraline 100 mg tablet 200 mg (2 x 100 mg) PO DAILY #180 11/17/22 02/20/23 tabs magnesium oxide 400 mg PO QHS #90 caps 11/19/22 02/20/23 riboflavin (vitamin B2) 100 mg 200 mg (2 x 100 mg) PO BID #360 11/19/22 02/20/23 tablet tabs amlodipine 5 mg tablet 5 mg PO DAILY #90 tabs 02/10/23 02/20/23 rizatriptan 10 mg disintegrating 10 mg PO ONCE PRN migraine 02/10/23 02/20/23 tablet (Maxalt-ERGONOMICS CONSULTANT) headache #14 tabs Previous Rx's Medication Instructions Recorded sertraline 100 mg tablet 200 mg (2 x 100 mg) PO DAILY #180 11/17/22 tabs magnesium oxide 400 mg PO QHS #90 caps 11/19/22 riboflavin (vitamin B2) 100 mg 200 mg (2 x 100 mg) PO BID #360 11/19/22 tablet tabs amlodipine 5 mg tablet 5 mg PO DAILY #90 tabs 02/10/23 rizatriptan 10 mg disintegrating 10 mg PO ONCE PRN migraine 02/10/23 tablet (Maxalt-ERGONOMICS CONSULTANT) headache #14 tabs Allergies Allergy/AdvReac Type Severity Reaction Status Date / Time Buspirone AdvReac Mild Dizziness/L Uncoded 02/20/23 17:27 ighthead General Stated Complaint: RespSymp AGUSTIN: 3 Review of Systems All systems reviewed & are unremarkable except as noted in HPI and below PFSH All Active Problems (Updated 02/20/23 @ 17:41 by Lele Corrigan DO) COVID-19 (Acute) Hypertension (Chronic) Abnormal Pap smear of cervix (Acute) Migraine headache (Chronic) Elbow pain (Acute) Skin lesion (Acute) right knee, lateral side, raised, firm, tender Right knee pain (Acute) Hyperlipidemia (Chronic) Maltracking of left patella (Acute) 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 Anxiety (Chronic) Abnormal uterine bleeding (Acute) Screening cholesterol level (Acute) Medical History No-show for appointment Family History Mother No problems noted. Father No problems noted. Sister No problems noted. Brother No problems noted. Son No problems noted. Son No problems noted. Daughter No problems noted. Maternal Grandmother , 85 No problems noted. Social History Smoking/Tobacco Use Status: Current every day Tobacco Type: cigarettes Tobacco: How many years used: 20 Quit status: has quit before Second Hand Exposure: No Smoking risk assessment performed?: Yes Alcohol Intake: current Alcohol Intake frequency: holidays/special occasions only Drug use: Never Substance use type: does not use Household members: significant other Housing: apartment Communication Needs: None Do you need help understanding health information?: Never Pets and animals: No Sexually active: Yes Do you think of yourself as: straight/heterosexual Current gender identity: female What is your relationship status?: refused to answer How often do you talk on the phone with friends or family?: decline to answer How often do you get together with friends or relatives?: decline to answer How often do you attend congregation or advent services?: decline to answer Do you belong to any clubs or organized social groups?: decline to answer Panel score (0-1 are the most socially isolated patients): 0 What type of physical activity do you participate in: walking Duration: 15-30 minutes/day Frequency: 1-2 times per week Genevieve/Denominational: Cheondoism Special genevieve needs: No Helmet use: No Drive 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 Date GA/Weeks # Preg Succ Route Wgt Sex Labor Lgth Anesthesia Location Prov Compl 10/22/06 No Male [place] 10/03/11 Male [place] 01/14/13 No vaginal 2267.962 g Female at home unknown preg Exam Narrative Exam Narrative: 1.Const: Well-nourished, Well-developed, appearing stated age 2.Eyes: PERRL, no conjunctival injection, and symmetrical lids. 3.ENT: Atraumatic external nose and ears. Moist MM. Neck: Symmetric, trachea midline, No thyromegaly. Tympanic membranes are figueroa and pearly. No significant erythema in the posterior oropharynx. No tonsillar exudate. No hot potato voice. No stridor or difficulty controlling secretions. 4.CVS: +S1/S2, No murmurs or gallops. Peripheral pulses 2+ and equal in all extremities. Brisk capillary refill in all extremities. 5.RESP: Unlabored respiratory effort. Clear to auscultation bilaterally. No wheezes rales or rhonchi 6.GI: Soft, Nontender/Nondistended, No hepatosplenomegaly. No guarding or rebound. 7.MSK: Normocephalic/Atraumatic, Extremities w/o deformity or ttp No cyanosis or clubbing, Normal movement of all extremities 8.Skin: Warm, Dry. No rashes or lesions. 9.Neuro: laminator preforms II-XII grossly intact. Sensation grossly intact, no focal neurologic deficits. 10.Psych: (AAO) x3. Appropriate mood and affect Course Vital Signs Vital signs: Vital Signs Temperature 36.9 C 02/20/23 16:33 Pulse 89 02/20/23 16:33 Respiratory Rate 20 02/20/23 16:33 Blood Pressure 176/115 H 02/20/23 16:33 Pulse Oximetry 98 02/20/23 16:33 Temperature 36.9 C 02/20/23 16:33 Temperature Source Oral 02/20/23 16:33 Pulse 89 02/20/23 16:33 Respiratory Rate 20 02/20/23 16:33 Blood Pressure 176/115 H 02/20/23 16:33 Blood Pressure Position Sitting 02/20/23 16:33 Pulse Oximetry 98 02/20/23 16:33 Oxygen Delivery Method Room Air 02/20/23 16:33 Oxygen Flow Rate 0 02/20/23 16:33 Pain Level 0 02/20/23 16:33
[2023-02-20] MEDS: Ibuprofen 800 MG TAB PO (16:48)
[2023-02-20 17:25] LABS: Influenza A PCR Negative (Negative); Influenza B PCR Negative (Negative); RSV PCR Negative (Negative)
[2023-02-20 17:30] LABS: COVID-19 PCR Positive (Negative); Source Nasopharynx
== END 2023-02-20 18:18 | disposition home or self-care (01) ==
PROVIDERS: Emergency Provider Student in an Organized Health Care Education/Training Program; PCP Nurse Practitioner Family
DX: U07.1 COVID-19 (principal); Z11.52 Encounter for screening for COVID-19
CPT/HCPCS: 87637; 87880; 99283; 87081

== ENCOUNTER 2023-03-18 12:34 | Outpatient (REF) | payer MEDICAID, SELFPAY ==
[2023-03-18 13:07] LABS: COMMENT (LAB VIEW ONLY) 90.89 mg/dL; Microalb ug/mg Crea 10.2 ug/mg Cr
== END 2023-03-18 12:35 | disposition home or self-care (01) ==
LOC: LBN 12:34
PROVIDERS: PCP Nurse Practitioner Family; Visit Provider Nurse Practitioner Family
DX: I10 Essential (primary) hypertension (principal)
CPT/HCPCS: 82043; 82570

== ENCOUNTER 2023-04-09 18:20 | Emergency (ER) | payer MEDICAID, SELFPAY ==
[2023-04-09 18:24] VITALS: BP 143/86; PULSE 104; RESP 18; TEMP 36.4; O2SAT 98
--- NOTE | 2023-04-09 18:45 | DI.CT_ITS ---
Exam(s) CT THORACIC LUMBAR SPINE WO EXAM: CT THORACIC LUMBAR SPINE WO CLINICAL HISTORY: midline thoracic and lumbar spinal pain. TECHNIQUE: Imaging Protocol: Axial computed tomography images with coronal and sagittal reformatted images were created and reviewed. COMPARISON: No exams were available for comparison FINDINGS: Bones: No fractures or dislocations are seen. There is a mild right convex thoracic curvature. Multi level degenerative changes are seen in the mid thoracic spine. There are mild degenerative changes s een in the lumbar spine. Degenerative changes at L5-S1 cause mild left neural foraminal stenosis. Soft tissues: There is a hypodense area in the inferior pole of the left kidney measuring 1.7 cm sugg esting a thyroid nodule. Nonemergent thyroid ultrasound may be obtained for further evaluation. No large disk herniations are identified. IMPRESSION: No acute fracture or subluxation in the thoracic or lumbar spine. Unexpected findings RADIATION DOSE DELIVERED: Total DLP DATA REPOSITORY: All CT scans at this facility are submitted to the National Radiology Data Registry (NRDR) Dose Index Registry (DIR) with the [employer] (A[employer]). RADIATION OPTIMIZATION: All CT scans at this facility use at least one of these dose optimization te chniques: automated exposure control; mA and/or kV adjustment per patient size (includes targeted exa ms where dose is matched to clinical indication); or iterative reconstruction.
--- NOTE | 2023-04-09 20:06 | ED.GENADUL_ITS ---
Discharge Plan Disposition Patient Disposition: Home Condition: Good Discharge Details Clinical Impression: Back pain Primary Care Provider: Nick Ritter ED Provider: Lele Corrigan Home Meds and New Rx's Prescriptions: New cyclobenzaprine 10 mg tablet 10 mg PO TID Qty: 14 0RF prednisone 50 mg tablet 50 mg PO DAILY Qty: 5 0RF No Action sertraline 100 mg tablet 200 mg PO DAILY Qty: 180 3RF magnesium oxide 400 mg magnesium capsule 400 mg PO QHS Qty: 90 3RF Rx Instructions: take for at least 6 weeks riboflavin (vitamin B2) 100 mg tablet 200 mg PO BID Qty: 360 1RF Rx Instructions: take for at least 6 weeks lidocaine 5 % adhesive patch,medicated 1 patch topical DAILY Qty: 30 0RF Rx Instructions: leave on most painful area for up to 12 hrs amlodipine 10 mg tablet 10 mg PO DAILY Qty: 90 4RF rizatriptan [Maxalt-INDEPENDENT [employer]OP CONSULTANT] 10 mg tablet,disintegrating 10 mg PO ONCE PRN (Reason: migraine headache) Qty: 9 11RF acetaminophen [Acetaminophen Extra Strength] 500 mg Tablet 1,000 mg PO Q6H PRN Discharge Instructions Instructions: Back Pain (ED) Additional Instructions: At this time your signs and symptoms are clinically consistent with a back sprain. This can cause significant pain and take a fair bit of time to heal. I expect 1 to 2 months for potential resolution. In the meantime do not lift anything greater than 5 pounds for the next 2 weeks. Avoid any significant vigorous physical activity. Perform easy gentle regular activities at home without any significant bending or lifting. Please take the steroids as directed. You have been given a prescription for Lidoderm patch. If your insurance does not cover this you can get [id number] Lidoderm patches at 4% which are almost just as effective. Please take the Flexeril as directed but do not take it when driving or operating any vehicles or heavy machinery, swimming, taking long baths, or operating firearms. Please use a heating pad as often as possible on your back. Perform daily gentle stretches on your back. Please continue to take the Tylenol and Motrin. You can take 1000 mg of Tylenol every 6 hours and 600 mg of ibuprofen every 6 hours. If you notice any worsening of your symptoms, or any new symptoms such as vomiting, diarrhea, fever, chills, shortness of breath, chest pain, numbness or tingling in your groin or legs, weakness in your legs, loss of control for your bowels or bladder, or fainting , please return immediately to the emergency department for reevaluation. Please follow up with your primary care provider as soon as possible for reassessment and reevaluation. As always, it was a pleasure participating in your medical care today. Referrals: Nick Ritter NP [Primary Care Provider] - Medical Decision Making 43-year-old female with a past medical history of high cholesterol, migraines, hypertension, presents today for evaluation of back pain. Patient states that for the last 4 weeks she has had mild pain traveling down her spine from the mid spine down towards her buttock. It is better when she lies down, worse when she sits up. She was seen at [facility] a few weeks ago where she was administered Lidoderm patches and recommended NSAIDs. Unfortunately she states that the patches do not help very much. Pain continues and is unchanged. Patient denies any saddle anesthesia, numbness or tingling in the groin, change in sensation when wiping. Patient denies any change in sensation during sexual intercourse, bowel or bladder incontinence, leakage, or retention. Patient denies any weakness in the lower extremities, atypical falls or imbalance. She denies any IV or illicit drug use. She denies any fever or chills. Exam demonstrates midline tenderness from T6-L4, minimal paraspinal tenderness. No step-off. No neurologic deficits to suggest cauda equina syndrome or other abnormalities. With the patient's midline tenderness and the longevity of her symptoms, and the resistance to NSAIDs and Lidoderm patch, I am concerned for potential other underlying etiology. Discussed risk and benefits of further imaging, we have elected to get a CT scan. Will monitor closely and reassess. 9:[address] scan has returned, no acute process, there is multilevel degenerative disc changes, as well as evidence of arthritis. No clinical evidence of cauda equina syndrome, tumor or other acute process otherwise. Will recommend steroids, Lidoderm patches continuation, cyclobenzaprine, and continued NSAIDs. Recommend continued physical therapy outpatient. If the patient does not have improvement with this therapy over the next 4 to 6 weeks, and she may need nonemergent MRI imaging on an outpatient basis. Discussed red flags which to return. I have extensively reviewed the treatment plan and discharge instructions with the patient. I have addressed all patient concerns at this time. The patient was made aware of what symptoms to monitor for that would warrant a return to the emergency department. Discussed the plan with the patient, they demonstrate verbal understanding and agreement with our assessment and plan at this time. The documentation in this chart was dictated using [employer] dictation software. Please excuse any dictation errors. FINDINGS: Bones/joints: Mild thoracic kyphoscoliosis. Moderate multilevel degenerative disc change and anterior osteophyte formation throughout the midthoracic spine. No vertebral body compression or acute fracture. Soft tissues: Unremarkable. IMPRESSION: No acute abnormality. Chronic findings as noted. FINDINGS: Bones/joints: Mild thoracolumbar scoliosis. Minimal disc bulge and uncovertebral spurring throughout the lumbar spine, most pronounced at the lumbosacral junction where mild central canal and bilateral neural foraminal stenosis is present. No vertebral body compression or acute fracture. Soft tissues: Unremarkable. IMPRESSION: No acute abnormality. Chronic findings as noted. Thank you for allowing us to participate in the care of your patient. Dictated and Authenticated by: Linden Justin MD 04/09/2023 8:47 PM Eastern Time ([place] & [place]) HPI General Date/Time Provider Initiated Documentation: 04/09/23 18:36 . HPI Narrative: 43-year-old female with a past medical history of high cholesterol, migraines, hypertension, presents today for evaluation of back pain. Patient states that for the last 4 weeks she has had mild pain traveling down her spine from the mid spine down towards her buttock. It is better when she lies down, worse when she sits up. She was seen at [facility] a few weeks ago where she was administered Lidoderm patches and recommended NSAIDs. Unfortunately she states that the patches do not help very much. Pain continues and is unchanged. Patient denies any saddle anesthesia, numbness or tingling in the groin, change in sensation when wiping. Patient denies any change in sensation during sexual intercourse, bowel or bladder incontinence, leakage, or retention. Patient denies any weakness in the lower extremities, atypical falls or imbalance. She denies any IV or illicit drug use. She denies any fever or chills. Related Data Home Medications Medication Instructions Recorded Confirmed acetaminophen 500 mg tablet 1,000 mg PO Q6H PRN 07/22/21 04/09/23 (Acetaminophen Extra Strength) sertraline 100 mg tablet 200 mg (2 x 100 mg) PO DAILY #180 11/17/22 04/09/23 tabs magnesium oxide 400 mg PO QHS #90 caps 11/19/22 04/09/23 riboflavin (vitamin B2) 100 mg 200 mg (2 x 100 mg) PO BID #360 11/19/22 04/09/23 tablet tabs amlodipine 10 mg tablet 10 mg PO DAILY #90 tabs 03/18/23 04/09/23 lidocaine 5 % topical patch 1 patch topical DAILY #30 ea 03/18/23 04/09/23 rizatriptan 10 mg disintegrating 10 mg PO ONCE PRN migraine 03/18/23 04/09/23 tablet (Maxalt-INDEPENDENT [employer] CONSULTANT) headache #9 tabs cyclobenzaprine 10 mg tablet 10 mg PO TID #14 tabs 04/09/23 prednisone 50 mg tablet 50 mg PO DAILY #5 tabs 04/09/23 Previous Rx's Medication Instructions Recorded sertraline 100 mg tablet 200 mg (2 x 100 mg) PO DAILY #180 11/17/22 tabs magnesium oxide 400 mg PO QHS #90 caps 11/19/22 riboflavin (vitamin B2) 100 mg 200 mg (2 x 100 mg) PO BID #360 11/19/22 tablet tabs amlodipine 10 mg tablet 10 mg PO DAILY #90 tabs 03/18/23 lidocaine 5 % topical patch 1 patch topical DAILY #30 ea 03/18/23 rizatriptan 10 mg disintegrating 10 mg PO ONCE PRN migraine 03/18/23 tablet (Maxalt-INDEPENDENT [employer] CONSULTANT) headache #9 tabs cyclobenzaprine 10 mg tablet 10 mg PO TID #14 tabs 04/09/23 prednisone 50 mg tablet 50 mg PO DAILY #5 tabs 04/09/23 Allergies Allergy/AdvReac Type Severity Reaction Status Date / Time Buspirone AdvReac Mild Dizziness/L Uncoded 04/09/23 19:26 ighthead General Stated Complaint: Nk/Back Pain AGUSTIN: 4 Review of Systems All systems reviewed & are unremarkable except as noted in HPI and below PFSH All Active Problems (Updated 04/09/23 @ 20:56 by Lele Corrigan DO) Back pain (Acute) High risk human papillomavirus (HPV) DNA test positive (Acute) DUB (dysfunctional uterine bleeding) (Acute) Macromastia (Acute) Upper back pain (Acute) Hypertension (Chronic) Abnormal Pap smear of cervix (Acute) Migraine headache (Chronic) Skin lesion (Acute) right knee, lateral side, raised, firm, tender Hyperlipidemia (Chronic) Maltracking of left patella (Acute) 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 Anxiety (Chronic) Abnormal uterine bleeding (Acute) Medical History COVID-19 Elbow pain No-show for appointment Right knee pain Family History Mother No problems noted. Father No problems noted. Sister No problems noted. Brother No problems noted. Son No problems noted. Son No problems noted. Daughter No problems noted. Maternal Grandmother , 85 No problems noted. Social History Smoking/Tobacco Use Status: Current every day Tobacco Type: cigarettes Tobacco: How many years used: 20 Quit status: has quit before Second Hand Exposure: No Smoking risk assessment performed?: Yes Alcohol Intake: current Alcohol Intake frequency: holidays/special occasions only Drug use: Never Substance use type: does not use Household members: significant other Housing: apartment Communication Needs: None Do you need help understanding health information?: Never Pets and animals: No Sexually active: Yes Do you think of yourself as: straight/heterosexual Current gender identity: female What is your relationship status?: refused to answer How often do you talk on the phone with friends or family?: decline to answer How often do you get together with friends or relatives?: decline to answer How often do you attend nondenominational or sikhism services?: decline to answer Do you belong to any clubs or organized social groups?: decline to answer Panel score (0-1 are the most socially isolated patients): 0 What type of physical activity do you participate in: walking Duration: 15-30 minutes/day Frequency: 1-2 times per week Genevieve/Restorationism: Gnosticism Special genevieve needs: No Helmet use: No Drive intox or ride w/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 Date GA/Weeks # Preg Succ Route Wgt Sex Labor Lgth Anesth esia Location Prov Compl 10/22/06 No Male [place] 10/03/11 [place] 01/14/13 No vaginal 2267.962 g Female at home unknown preg Exam Narrative Exam Narrative: 1.Const: Well-nourished, Well-developed, appearing stated age 2.Eyes: PERRL, no conjunctival injection, and symmetrical lids. 3.ENT: Atraumatic external nose and ears. Moist MM. Neck: Symmetric, trachea midline, No thyromegaly. 4.CVS: +S1/S2, No murmurs or gallops. Peripheral pulses 2+ and equal in all extremities. Brisk capillary refill in all extremities. 5.RESP: Unlabored respiratory effort. Clear to auscultation bilaterally. No wheezes rales or rhonchi 6.GI: Soft, Nontender/Nondistended, No hepatosplenomegaly. No guarding or rebound. 7.MSK: Normocephalic/Atraumatic, Extremities w/o deformity or ttp No cyanosis or clubbing, Normal movement of all extremities No midline cervical spine tenderness. Mild midline tenderness for thoracic and lumbar vertebrae from T6-L4. Normal ROM in flexion, extension, side bend, and rotation. Patient has +5 out of 5 strength in the lower extremities in dorsiflexion and plantarflexion, knee flexion and extension, hip flexion and extension. Normal strength for dorsiflexion and plantar flexion of the great toe bilaterally. There is +2 over 2 dorsalis pedis pulses bilaterally. There is normal sensation to the skin with light touch at the foot, knee, and hip. Normal saddle sensation. Good sensation over the deep sural nerve area bilaterally. Rectal exam deferred. Reflexes are +2 over 4 in the patellar reflex bilaterally. +5 out of 5 strength in the medial, ulnar, radial nerve distribution bilaterally in the hands as well as intact light touch sensation to these dermatomes on the hands 8.Skin: Warm, Dry. No rashes or lesions. 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 Sensation grossly intact, no focal neurologic deficits. 10.Psych: (AAO) x3. Appropriate mood and affect Course Vital Signs Vital signs: Vital Signs Temperature 36.4 C L 04/09/23 18:24 Pulse 104 H 04/09/23 18:24 Respiratory Rate 18 04/09/23 18:24 Blood Pressure 143/86 H 04/09/23 18:24 Pulse Oximetry 98 04/09/23 18:24 Temperature 36.4 C L 04/09/23 18:24 Temperature Source Tympanic 04/09/23 18:24 Pulse 104 H 04/09/23 18:24 Respiratory Rate 18 04/09/23 18:24 Respiratory Effort Normal 04/09/23 19:27 Blood Pressure 143/86 H 04/09/23 18:24 Pulse Oximetry 98 04/09/23 18:24 Oxygen Delivery Method Room Air 04/09/23 18:24 Oxygen Flow Rate 0 04/09/23 18:24 PAWSS Have you Been Recently Intoxicated or Drunk Within the Last 30 days?: No Have you Ever Experienced Previous Episodes of Alcohol Withdrawal?: No Have you ever Experienced Withdrawal Seizures?: No Have you ever Experienced Delirium Tremens(DT)s?: No Have you ever undergone Alcohol Rehabilitation Treatment (i.e, inpt ot outpatient treatment programs)?: No Have you ever Experienced Blackouts?: No Have you ever Combined Alcohol with other Downers within the last 90 days?: No Have you ever Combined Alcohol with any other Substance of Abuse during the last 90 days?: No Positive Blood Alcohol level on Presentation? [PCS.BAL]: No Evidence of Increased Autonomic Activity (i.e. HR>120, tremor, sweating, agitation, nausea)?: No Result: 0
--- NOTE | 2023-04-09 20:47 | DI.VRAD_ITS ---
PROCEDURE INFORMATION: Exam: CT Thoracic Spine Without Contrast Exam date and time: 04/09/2023 7:48 PM Age: 43 years old Clinical indication: Other: Midline thoracic and lumbar spine pain; Pain in thoracic spine TECHNIQUE: Imaging protocol: Computed tomography of the thoracic spine without contrast. COMPARISON: No relevant prior studies available. FINDINGS: Bones/joints: Mild thoracic kyphoscoliosis. Moderate multilevel degenerative disc change and anterior osteophyte formation throughout the midthoracic spine. No vertebral body compression or acute fracture. Soft tissues: Unremarkable. IMPRESSION: No acute abnormality. Chronic findings as noted. PROCEDURE INFORMATION: Exam: CT Lumbar Spine Without Contrast Exam date and time: 04/09/2023 7:48 PM Age: 43 years old Clinical indication: Other: Midline thoracic and lumbar spine pain; Pain in thoracic spine TECHNIQUE: Imaging protocol: Computed tomography of the lumbar spine without contrast. COMPARISON: US PELVIS TRANSVAGINAL 08/26/2021 8:42 AM FINDINGS: Bones/joints: Mild thoracolumbar scoliosis. Minimal disc bulge and uncovertebral spurring throughout the lumbar spine, most pronounced at the lumbosacral junction where mild central canal and bilateral neural foraminal stenosis is present. No vertebral body compression or acute fracture. Soft tissues: Unremarkable. IMPRESSION: No acute abnormality. Chronic findings as noted. Dictated and Authenticated by: Linden Justin MD. Ordering:STEVE Royal MD
[2023-04-09] MEDS: Cyclobenzaprine 10 MG TAB PO (21:04)
[2023-04-09] MEDS: predniSONE 20 MG TAB 60 MG PO (21:04)
[2023-04-09] MEDS: Ketorolac 30 MG/ML VIAL IM (21:04)
== END 2023-04-09 21:04 | disposition home or self-care (01) ==
PROVIDERS: Emergency Provider Student in an Organized Health Care Education/Training Program; PCP Nurse Practitioner Family
DX: M54.6 Pain in thoracic spine (principal); M54.59 Other low back pain
CPT/HCPCS: 96374; 99284; 72128; 72131; 99283; J1885; J7512

== ENCOUNTER 2023-04-15 03:03 | Emergency (ER) | payer MEDICAID, SELFPAY ==
[2023-04-15 03:09] VITALS: BP 154/90; PULSE 109; RESP 16; TEMP 36.7; O2SAT 97
--- NOTE | 2023-04-15 03:36 | W.ED.GENAD ---
Discharge Plan Disposition Patient Disposition: Home Discharge Details Clinical Impression: Back pain Primary Care Provider: Nick Ritter ED Provider: Lele Corrigan Home Meds and New Rx's Prescriptions: No Action sertraline 100 mg tablet 200 mg PO DAILY Qty: 180 3RF magnesium oxide 400 mg magnesium capsule 400 mg PO QHS Qty: 90 3RF Rx Instructions: take for at least 6 weeks riboflavin (vitamin B2) 100 mg tablet 200 mg PO BID Qty: 360 1RF Rx Instructions: take for at least 6 weeks amlodipine 10 mg tablet 10 mg PO DAILY Qty: 90 4RF rizatriptan [Maxalt-CRM TECHNICAL LEAD] 10 mg tablet,disintegrating 10 mg PO ONCE PRN (Reason: migraine headache) Qty: 9 11RF lidocaine 5 % adhesive patch,medicated 1 patch topical DAILY Qty: 30 0RF Rx Instructions: leave on most painful area for up to 12 hrs acetaminophen [Acetaminophen Extra Strength] 500 mg Tablet 1,000 mg PO Q6H PRN cyclobenzaprine 10 mg tablet 10 mg PO TID Qty: 14 0RF prednisone 50 mg tablet 50 mg PO DAILY Qty: 5 0RF Discharge Instructions Instructions: Back Pain (ED) Additional Instructions: As we discussed together, the neck step in evaluation of your back/spine is an MRI. You have elected not to stay for an MRI today. Please follow-up closely with your primary care provider for establishment of an outpatient MRI. Please follow the directions closely for the management of your back pain: Do not lift anything greater than 5 pounds for the next 2 weeks. Avoid any significant vigorous physical activity. Perform easy gentle regular activities at home without any significant bending or lifting. Please take the steroids as directed. You have been given a prescription for Lidoderm patch. If your insurance does not cover this you can get [id number] Lidoderm patches at 4% which are almost just as effective. Please take the Flexeril as directed but do not take it when driving or operating any vehicles or heavy machinery, swimming, taking long baths, or operating firearms. Please use a heating pad as often as possible on your back. Perform daily gentle stretches on your back. Please continue to take the Tylenol and Motrin. You can take 1000 mg of Tylenol every 6 hours and 600-800 mg of ibuprofen every 6 hours. If you notice any worsening of your symptoms, or any new symptoms such as vomiting, diarrhea, fever, chills, shortness of breath, chest pain, numbness or tingling in your groin or legs, weakness in your legs, loss of control for your bowels or bladder, or fainting , please return immediately to the emergency department for reevaluation. Please follow up with your primary care provider as soon as possible for reassessment and reevaluation. As always, it was a pleasure participating in your medical care today. Referrals: Nick Ritter NP [Primary Care Provider] - Medical Decision Making This is a 43-year-old female with a past medical history of high cholesterol, migraines, hypertension who presents with complaint of back pain. Patient was seen and assessed on 04/09/2023 for 4 weeks of back pain. It had been mild traveling down her spine from her mid starting towards her buttock. It was worse when she would sit up and better when she would lie down. She saw [facility] few weeks ago was given Lidoderm patches and NSAIDs, this did not improve her symptoms. Pain continued. When she was seen by myself on 04/09/23 exam was reassuring with no signs of cauda equina syndrome. CAT scan was performed which demonstrated no acute process, some mild foraminal stenosis and minimal disc bulging was noted. No kidney stones were noted. No other abnormalities were noted. Patient was given Lidoderm patches, Flexeril, and recommended to take 1000 mg of Tylenol every 6 hours and 6 to 800 mg of Motrin every 6 hours. She was given Toradol in the department and felt very well after this and was discharged home. Physical therapy was also established with the patient. Over the last 5 to 6 days she has had continued pain. She has been taking the steroids and Lidoderm patches and Flexeril as prescribed. She states this slightly helps the pain. She has been taking 500 mg of Tylenol daily and 200 mg of Motrin daily. She did see physical therapy yesterday with no additional recommendations. She presents today at 3:30 AM for further review. Pain is otherwise unchanged, neither better nor worse. She has not been lifting any heavy weights. She denies any fever or chills. Patient denies any saddle anesthesia, numbness or tingling in the groin, change in sensation when wiping. Patient denies any change in sensation during sexual intercourse, bowel or bladder incontinence, leakage, or retention. Patient denies any weakness in the lower extremities, atypical falls or imbalance. She denies any IV or illicit drug use. Exam demonstrates a well-appearing female, no significant deficits, no signs of saddle anesthesia, diminished reflexes, diminished rectal tone, or other abnormalities. No history of drug use to suggest epidural abscess. No nuchal rigidity or neck stiffness to suggest meningitis. No new trauma. No urinary difficulty or pain. I discussed with the patient previous findings of the CAT scan, as well as options for the next steps. There are few additional tools that we have in addition to the already prescribed physical therapy, NSAIDs, Lidoderm patches, and steroids. We discussed the risks and benefits of narcotics and decided to hold off for the time being. I did offer an MRI for the patient. Currently it is 3:30 AM and no MRI is available. I did suggest that we can keep her here in case there is an opening in the early to mid morning to have an MRI. Patient has declined this. She has requested Toradol, and stated that she will return later. I did make it very clear to the patient that coming back later does not guarantee an MRI, and the best guarantee would be to schedule an outpatient MRI with her PCP. Patient states that she will be back later today. Patient will be discharged home. I have extensively reviewed the treatment plan and discharge instructions with the patient and their family. I have addressed all patient concerns at this time. The patient and family was made aware of what symptoms to monitor for that would warrant a return to the emergency department. Discussed the plan with the patient and family, they demonstrate verbal understanding and agreement with our assessment and plan at this time. The documentation in this chart was dictated using [employer] dictation software. Please excuse any dictation errors. HPI General Date/Time Provider Initiated Documentation: 04/15/23 03:08. HPI Narrative: This is a 43-year-old female with a past medical history of high cholesterol, migraines, hypertension who presents with complaint of back pain. Patient was seen and assessed on 04/09/2023 for 4 weeks of back pain. It had been mild traveling down her spine from her mid starting towards her buttock. It was worse when she would sit up and better when she would lie down. She saw [facility] few weeks ago was given Lidoderm patches and NSAIDs, this did not improve her symptoms. Pain continued. When she was seen by myself on 04/09/23 exam was reassuring with no signs of cauda equina syndrome. CAT scan was performed which demonstrated no acute process, some mild foraminal stenosis and minimal disc bulging was noted. No kidney stones were noted. No other abnormalities were noted. Patient was given Lidoderm patches, Flexeril, and recommended to take 1000 mg of Tylenol every 6 hours and 6 to 800 mg of Motrin every 6 hours. She was given Toradol in the department and felt very well after this and was discharged home. Physical therapy was also established with the patient. Over the last 5 to 6 days she has had continued pain. She has been taking the steroids and Lidoderm patches and Flexeril as prescribed. She states this slightly helps the pain. She has been taking 500 mg of Tylenol daily and 200 mg of Motrin daily. She did see physical therapy yesterday with no additional recommendations. She presents today at 3:30 AM for further review. Pain is otherwise unchanged, neither better nor worse. She has not been lifting any heavy weights. She denies any fever or chills. Patient denies any saddle anesthesia, numbness or tingling in the groin, change in sensation when wiping. Patient denies any change in sensation during sexual intercourse, bowel or bladder incontinence, leakage, or retention. Patient denies any weakness in the lower extremities, atypical falls or imbalance. She denies any IV or illicit drug use. Related Data Home Medications Medication Instructions Recorded Confirmed acetaminophen 500 mg tablet 1,000 mg PO Q6H PRN 07/22/21 04/15/23 (Acetaminophen Extra Strength) sertraline 100 mg tablet 200 mg (2 x 100 mg) PO DAILY #180 11/17/22 04/15/23 tabs magnesium oxide 400 mg PO QHS #90 caps 11/19/22 04/15/23 riboflavin (vitamin B2) 100 mg 200 mg (2 x 100 mg) PO BID #360 11/19/22 04/15/23 tablet tabs amlodipine 10 mg tablet 10 mg PO DAILY #90 tabs 03/18/23 04/15/23 rizatriptan 10 mg disintegrating 10 mg PO ONCE PRN migraine 03/18/23 04/15/23 tablet (Maxalt-CRM TECHNICAL LEAD) headache #9 tabs cyclobenzaprine 10 mg tablet 10 mg PO TID #14 tabs 04/09/23 04/15/23 prednisone 50 mg tablet 50 mg PO DAILY #5 tabs 04/09/23 04/15/23 lidocaine 5 % topical patch 1 patch topical DAILY #30 ea 04/10/23 04/15/23 Previous Rx's Medication Instructions Recorded sertraline 100 mg tablet 200 mg (2 x 100 mg) PO DAILY #180 11/17/22 tabs magnesium oxide 400 mg PO QHS #90 caps 11/19/22 riboflavin (vitamin B2) 100 mg 200 mg (2 x 100 mg) PO BID #360 11/19/22 tablet tabs amlodipine 10 mg tablet 10 mg PO DAILY #90 tabs 03/18/23 rizatriptan 10 mg disintegrating 10 mg PO ONCE PRN migraine 03/18/23 tablet (Maxalt-CRM TECHNICAL LEAD) headache #9 tabs cyclobenzaprine 10 mg tablet 10 mg PO TID #14 tabs 04/09/23 prednisone 50 mg tablet 50 mg PO DAILY #5 tabs 04/09/23 lidocaine 5 % topical patch 1 patch topical DAILY #30 ea 04/10/23 Allergies Allergy/AdvReac Type Severity Reaction Status Date / Time Buspirone AdvReac Mild Dizziness/L Uncoded 04/15/23 03:07 ighthead General Stated Complaint: Orthopedic AGUSTIN: 3 Review of Systems All systems reviewed & are unremarkable except as noted in HPI and below PFSH All Active Problems Back pain (Acute) Back pain (Acute) High risk human papillomavirus (HPV) DNA test positive (Acute) DUB (dysfunctional uterine bleeding) (Acute) Macromastia (Acute) Upper back pain (Acute) Hypertension (Chronic) Abnormal Pap smear of cervix (Acute) Migraine headache (Chronic) Skin lesion (Acute) right knee, lateral side, raised, firm, tender Hyperlipidemia (Chronic) Maltracking of left patella (Acute) 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 Anxiety (Chronic) Abnormal uterine bleeding (Acute) Medical History COVID-19 Elbow pain No-show for appointment Right knee pain Family History Mother No problems noted. Father No problems noted. Sister No problems noted. Brother No problems noted. Son No problems noted. Son No problems noted. Daughter No problems noted. Maternal Grandmother , 85 No problems noted. Social History Smoking/Tobacco Use Status: Current every day Tobacco Type: cigarettes Tobacco: How many years used: 20 Quit status: has quit before Second Hand Exposure: No Smoking risk assessment performed?: Yes Alcohol Intake: current Alcohol Intake frequency: holidays/special occasions only Drug use: Never Substance use type: does not use Household members: significant other Housing: apartment Communication Needs: None Do you need help understanding health information?: Never Pets and animals: No Sexually active: Yes Do you think of yourself as: straight/heterosexual Current gender identity: female What is your relationship status?: refused to answer How often do you talk on the phone with friends or family?: decline to answer How often do you get together with friends or relatives?: decline to answer How often do you attend rastafarian or religion services?: decline to answer Do you belong to any clubs or organized social groups?: decline to answer Panel score (0-1 are the most socially isolated patients): 0 What type of physical activity do you participate in: walking Duration: 15-30 minutes/day Frequency: 1-2 times per week Genevieve/Mandaen: Synagogue Special genevieve needs: No Helmet use: No Drive intox or ride w/intox driver retraining instructor: No Do you feel safe at home: Yes Do you feel safe in your relationship?: Yes History History 3 Para 3 Hx # Term Pregnancies Multiple births Hx # Pregnancies Ectopic pregnancies AB induced Hx Number of Living Children 3 AB spontaneous Past Pregnancies Del. Date GA/Weeks # Preg Succ Route Wgt Sex Labor Lgth Anesthesia Location [facility] 10/22/06 No [place] 10/03/11 [place] 01/14/13 No vaginal 2267.962 g Female at home unknown preg Exam Narrative Exam Narrative: 1.Const: Well-nourished, Well-developed, appearing stated age 2.Eyes: PERRL, no conjunctival injection, and symmetrical lids. 3.ENT: Atraumatic external nose and ears. Moist MM. Neck: Symmetric, trachea midline, No thyromegaly. 4.CVS: +S1/S2, No murmurs or gallops. Peripheral pulses 2+ and equal in all extremities. Brisk capillary refill in all extremities. 5.RESP: Unlabored respiratory effort. Clear to auscultation bilaterally. No wheezes rales or rhonchi 6.GI: Soft, Nontender/Nondistended, No hepatosplenomegaly. No guarding or rebound. No flank or CVA tenderness. 7.MSK: Normocephalic/Atraumatic, Extremities w/o deformity or ttp No cyanosis or clubbing, Normal movement of all extremities. No significant midline tenderness to palpation over the CTLS spine. Minimal achiness on general palpation. Normal ROM in flexion, extension, side bend, and rotation. Patient has +5 out of 5 strength in the lower extremities in dorsiflexion and plantarflexion, knee flexion and extension, hip flexion and extension. Normal strength for dorsiflexion and plantar flexion of the great toe bilaterally. There is +2 over 2 dorsalis pedis pulses bilaterally. There is normal sensation to the skin with light touch at the foot, knee, and hip. Normal saddle sensation. Good sensation over the deep sural nerve area bilaterally. No rectal deficits. Reflexes are +2 over 4 in the patellar reflex bilaterally. +5 out of 5 strength in the medial, ulnar, radial nerve distribution bilaterally in the hands as well as intact light touch sensation to these dermatomes on the hands 8.Skin: Warm, Dry. No rashes or lesions. 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 Sensation grossly intact, no focal neurologic deficits. 10.Psych: (AAO) x3. Appropriate mood and affect Course Vital Signs Vital signs: Vital Signs Temperature 36.7 C 04/15/23 03:09 Pulse 109 H 04/15/23 03:09 Respiratory Rate 16 04/15/23 03:09 Blood Pressure 154/90 H 04/15/23 03:09 Pulse Oximetry 97 04/15/23 03:09 Temperature 36.7 C 04/15/23 03:09 Temperature Source Oral 04/15/23 03:09 Pulse 109 H 04/15/23 03:09 Respiratory Rate 16 04/15/23 03:09 Respiratory Effort Normal, Non-Labored 04/15/23 03:34 Blood Pressure 154/90 H 04/15/23 03:09 Blood Pressure Position Sitting 04/15/23 03:09 Pulse Oximetry 97 04/15/23 03:09 Oxygen Delivery Method Room Air 04/15/23 03:09 Oxygen Flow Rate 0 04/15/23 03:09 End Tidal Co2 10 04/15/23 03:09 Pain Level 0 04/15/23 03:09
[2023-04-15] MEDS: Ketorolac 30 MG/ML VIAL IM (03:45)
== END 2023-04-15 03:47 | disposition home or self-care (01) ==
PROVIDERS: Emergency Provider Student in an Organized Health Care Education/Training Program; PCP Nurse Practitioner Family
DX: M54.6 Pain in thoracic spine (principal); M54.50 Low back pain, unspecified
CPT/HCPCS: 96372; 99283; 99282; J1885

== ENCOUNTER → 2023-07-15 03:58 | Outpatient (CLI) | payer MEDICAID, SELFPAY ==
--- NOTE | 2023-07-15 07:00 | DI.MRI_ITS ---
Exam(s) MR THORACIC SPINE WO EXAM: MR THORACIC SPINE WO CLINICAL HISTORY: UPPER BACK PAIN,M54.9. TECHNIQUE: Multiplanar multisequence MRI of the Thoracic spine was performed. COMPARISON: MR MR LUMBAR SPINE WO from 07/15/2023 FINDINGS: Bones: The vertebral body heights are well maintained. Alignment is satisfactory. The marrow signal characteristics are unremarkable. Cord: The thoracic cord is normal size and signal intensity. No intrinsic cord lesion is present. Soft tissues: Normal. There are endplate osteophytes in the mid to lower thoracic spine. There are minimal disc osteophyte s projecting slightly into the central canal at the T7-8 level. There is no central canal stenosis o r neural foraminal narrowing at any level. IMPRESSION: Mild disc osteophytes at T 7- 8. No disc herniation, central canal stenosis or neural foraminal fabrizio rowing. DATA REPOSITORY:
--- NOTE | 2023-07-15 09:55 | DI.MRI_ITS ---
Exam(s) MR CERVICAL SPINE WO EXAM: MR CERVICAL SPINE WO CLINICAL HISTORY: PAIN, N54.9 TECHNIQUE: Multiplanar multisequence MRI of the cervical spine was performed without intravenous con trast. COMPARISON: No exams were available for comparison FINDINGS: BONES: Vertebral body heights are maintained. Alignment is normal. Bone marrow signal intensity is wi thin normal limits. CERVICAL CORD: Craniovertebral junction is unremarkable. The cervical cord is normal size and signal intensity. SOFT TISSUES: Unremarkable. C2-3: No disc herniation or bulge is identified. No evidence of neural foraminal narrowing. No signi ficant central canal stenosis. C3-4: No disc herniation or bulge is identified. No evidence of neural foraminal narrowing. No signif icant central canal stenosis. C4-5: No disc herniation or bulge is identified. No evidence of neural foraminal narrowing. No signif icant central canal stenosis. C5-6: Minimal disc bulging.No evidence of neural foraminal narrowing. No significant central canal st enosis. C6-7: No disc herniation or bulge is identified. No evidence of neural foraminal narrowing. No signif icant central canal stenosis. C7-T1: No disc herniation or bulge is identified. No evidence of neural foraminal narrowing. No signi ficant central canal stenosis. IMPRESSION: Unremarkable MRI of the cervical spine. DATA REPOSITORY:
--- NOTE | 2023-07-15 10:50 | DI.MRI_ITS ---
Exam(s) MR LUMBAR SPINE WO EXAM: MR LUMBAR SPINE WO CLINICAL HISTORY: SCIATIC PAIN,M54.30. TECHNIQUE: Multiplanar multisequence MRI of the Lumbar spine was performed. COMPARISON: CR XR KNEE RT 3V AP,LAT,MARCIA from 05/12/[address] THORACIC LUMBAR SPINE WO from 04/09/2023 FINDINGS: Bones: The last intervertebral disc space is designated the L5/S1 level for the numbering purpose of this ex amination. The vertebral body heights are well maintained. Alignment: Unremarkable. The marrow signal characteristics are unremarkable. Cord: The conus tip ends at the T12 level. It is of normal size and signal intensity. T12-L1: No focal disc herniation is present. No central spinal canal stenosis.No neural foraminal st enosis. L1-2: No focal disc herniation is present. No central spinal canal stenosis.No neural foraminal sten osis. L2-3: No focal disc herniation is present. No central spinal canal stenosis.No neural foraminal neo nosis. L3-4: Mild degenerative changes. No focal disc herniation is present. Mild degenerative changes of the facet joints. No central spinal canal stenosis.No neural foraminal stenosis. L4-5: No focal disc herniation is present. No central spinal canal stenosis.No neural foraminal sten osis. L5-S1: There are small endplate osteophytes eccentric toward the right causing mild right neural fora chantel narrowing. There may be impingement on the L5 nerve root.No focal disc herniation is present. No central spinal canal stenosis.No neural foraminal stenosis. The visualized SI joints and sacrum are unremarkable. Soft tissues: The paraspinal soft tissues are unremarkable. IMPRESSION: Small endplate osteophytes eccentric toward the right at L5-S1 cause mild right neural foraminal narr owing and may impinge on the right L5 nerve root. DATA REPOSITORY:
== END ==
PROVIDERS: PCP Nurse Practitioner Family; Visit Provider Nurse Practitioner Family
DX: M54.2 Cervicalgia (principal); M51.17 Intervertebral disc disorders with radiculopathy, lumbosacral region; M54.89 Other dorsalgia; M25.78 Osteophyte, vertebrae; M54.31 Sciatica, right side; M47.896 Other spondylosis, lumbar region
CPT/HCPCS: 72141; 72146; 72148

== ENCOUNTER 2023-09-02 18:48 | Emergency (ER) | payer MEDICAID, SELFPAY ==
[2023-09-02 18:52] VITALS: BP 146/116; PULSE 90; RESP 18; TEMP 36.6; O2SAT 98
--- NOTE | 2023-09-02 19:13 | W.ED.GENAD ---
Discharge Plan Disposition Patient Disposition: Home Condition: Stable Discharge Details Clinical Impression: Acute exacerbation of chronic low back pain Primary Care Provider: Nick Ritter ED Provider: Mari Scott Home Meds and New Rx's Prescriptions: Continued sertraline 100 mg tablet 200 mg PO DAILY Qty: 180 3RF magnesium oxide 400 mg magnesium capsule 400 mg PO QHS Qty: 90 3RF Rx Instructions: take for at least 6 weeks riboflavin (vitamin B2) 100 mg tablet 200 mg PO BID Qty: 360 1RF Rx Instructions: take for at least 6 weeks lidocaine 5 % adhesive patch,medicated 1 patch topical DAILY Qty: 30 0RF Rx Instructions: leave on most painful area for up to 12 hrs topiramate [Topamax] 25 mg tablet 25 mg PO QHS Qty: 30 3RF amlodipine 10 mg tablet 10 mg PO DAILY Qty: 90 4RF rizatriptan [Maxalt-BLACK TOP PAVER OPERATOR] 10 mg tablet,disintegrating 10 mg PO ONCE PRN (Reason: migraine headache) Qty: 9 11RF cyclobenzaprine 10 mg tablet 10 mg PO TID PRN (Reason: muscle spasm) Qty: 30 0RF naproxen 500 mg tablet 500 mg PO BID Qty: 60 3RF acetaminophen [Acetaminophen Extra Strength] 500 mg Tablet 1,000 mg PO Q6H PRN Discharge Instructions Instructions: Back Pain (ED), Lower Back Exercises (ED) Additional Instructions: You were given IM injections here in the department today. Please keep your pain clinic appointment as previously scheduled. Continue to use the lidocaine patches as previously prescribed. Alternate ice and heat. Follow up with primary care provider in 3-5 days. Return to ED sooner if any worsening or concerns. Please take Tylenol or Ibuprofen with food every 4-6 hours as needed for pain and swelling. Referrals: [facility] [Provider Group] - 5 days Nick Ritter, TANK TRUCK OPERATOR [Primary Care Provider] - 3 days HPI General Mode of arrival: ambulatory. Date/Time Provider Initiated Documentation: 09/02/23 18:49. Limitations to Documentation: no limitations. Information obtained by: patient, RN notes reviewed and old records reviewed. HPI Narrative: 43 year old female presents to the ER with acute on chronic lower back pain which has been going on for a while, denies any recent injuries or heavy lifting denies any radiation down her legs no loss of bowel or bladder control or numbness or tingling. Denies any problems urinating. The patient reports she had an MRI recently which showed some degenerative changes. She has been prescribed naproxen did not take any today. She reports that she does use the lidocaine patches as previously prescribed and they do help somewhat. She has been recently taken off muscle relaxers. No other associated symptoms or concerns. Past medical history includes obesity. Related Data Home Medications Medication Instructions Recorded Confirmed acetaminophen 500 mg tablet 1,000 mg PO Q6H PRN 07/22/21 09/02/23 (Acetaminophen Extra Strength) sertraline 100 mg tablet 200 mg (2 x 100 mg) PO DAILY #180 11/17/22 09/02/23 tabs magnesium oxide 400 mg PO QHS #90 caps 11/19/22 09/02/23 riboflavin (vitamin B2) 100 mg 200 mg (2 x 100 mg) PO BID #360 11/19/22 09/02/23 tablet tabs amlodipine 10 mg tablet 10 mg PO DAILY #90 tabs 03/18/23 09/02/23 rizatriptan 10 mg disintegrating 10 mg PO ONCE PRN migraine 03/18/23 09/02/23 tablet (Maxalt-BLACK TOP PAVER OPERATOR) headache #9 tabs lidocaine 5 % topical patch 1 patch topical DAILY #30 ea 04/22/23 09/02/23 topiramate 25 mg tablet (Topamax) 25 mg PO QHS #30 tabs 06/30/23 09/02/23 cyclobenzaprine 10 mg tablet 10 mg PO TID PRN muscle spasm #30 07/22/23 09/02/23 tabs naproxen 500 mg tablet 500 mg PO BID #60 tabs 07/22/23 09/02/23 Previous Rx's Medication Instructions Recorded sertraline 100 mg tablet 200 mg (2 x 100 mg) PO DAILY #180 11/17/22 tabs magnesium oxide 400 mg PO QHS #90 caps 11/19/22 riboflavin (vitamin B2) 100 mg 200 mg (2 x 100 mg) PO BID #360 11/19/22 tablet tabs amlodipine 10 mg tablet 10 mg PO DAILY #90 tabs 03/18/23 rizatriptan 10 mg disintegrating 10 mg PO ONCE PRN migraine 03/18/23 tablet (Maxalt-BLACK TOP PAVER OPERATOR) headache #9 tabs lidocaine 5 % topical patch 1 patch topical DAILY #30 ea 04/22/23 topiramate 25 mg tablet (Topamax) 25 mg PO QHS #30 tabs 06/30/23 cyclobenzaprine 10 mg tablet 10 mg PO TID PRN muscle spasm #30 07/22/23 tabs naproxen 500 mg tablet 500 mg PO BID #60 tabs 07/22/23 Allergies Allergy/AdvReac Type Severity Reaction Status Date / Time Buspirone AdvReac Mild Dizziness/L Uncoded 09/02/23 18:57 ighthead General Stated Complaint: Nk/Back Pain AGUSTIN: 4 Review of Systems All systems reviewed & are unremarkable except as noted in HPI and below Musculoskeletal Musculoskeletal: Reports as per HPI, Reports back pain, Denies numbness, Denies radiating pain into limb and Reports stiffness Neurologic Neurologic: Denies numbness Exam Narrative Exam Narrative: Constitutional: Alert and oriented x3. Appears stated age. Normal body habitus. Head: Normocephalic, no trauma. Eyes: Pupils PERRL, Red reflex noted, EOM's intact. Eyelids symmetrical without lesions, discharge, or swelling. Chest: RRR, Normal S1, S2, distal pulses intact. Resp: Lungs clear to auscultation bilaterally, no wheezes, rales, or rhonchi. Abdomen: Soft, non-distended, Normoactive bowel sounds all 4 quads. Musculoskeletal: Normal gait, Moves all 4 extremities without difficulty. Tenderness to palpation L4-L5 area no crepitus no step-off noted. Skin: No suspicious rashes or lesions. Capillary refill less than 2 sec. Neurologic: Cranial nerves II-XII intact. Alert and oriented x 3. Motor: No deficits noted. Sensory: Intact bilaterally all 4 extremities. Hematologic/Lymphatic: No ecchymosis, no lymphadenopathy. Course Vital Signs Vital signs: Vital Signs Temperature 36.6 C 09/02/23 18:52 Pulse 90 09/02/23 18:52 Respiratory Rate 18 09/02/23 18:52 Blood Pressure 146/116 H 09/02/23 18:52 Pulse Oximetry 98 09/02/23 18:52 Temperature 36.6 C 09/02/23 18:52 Temperature Source Temporal Artery Scan 09/02/23 18:52 Pulse 90 05/15/24 18:52 Respiratory Rate 18 09/02/23 18:52 Respiratory Effort Normal 09/02/23 18:55 Blood Pressure 146/116 H 09/02/23 18:52 Pulse Oximetry 98 09/02/23 18:52 Oxygen Delivery Method Room Air 09/02/23 18:52 Oxygen Flow Rate 0 09/02/23 18:52 Pain Level 9 09/02/23 18:52 Medical Decision Making 43 year old female presents to the ER with acute on chronic lower back pain which has been going on for a while, denies any recent injuries or heavy lifting denies any radiation down her legs no loss of bowel or bladder control or numbness or tingling. Denies any problems urinating. The patient reports she had an MRI recently which showed some degenerative changes. She has been prescribed naproxen did not take any today. She reports that she does use the lidocaine patches as previously prescribed and they do help somewhat. She has been recently taken off muscle relaxers. No other associated symptoms or concerns. Past medical history includes obesity. IM Toradol and Norflex ordered. At this time imaging deferred due to recent MRI. No signs of cauda equina. No history of injuries or reason for imaging. Patient discharged with 3 tablets of Flexeril instructed to follow-up with PCP and strict return instructions discussed. This text was generated using [employer] dictation system, please disregard any oddities of phrase or misspellings. Medical Records Medical records reviewed: Yes I reviewed the patient's medical records. 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 Anxiety (Chronic) Abnormal uterine bleeding (Acute) Medical History Skin lesion right knee, lateral side, raised, firm, tender Maltracking of left patella COVID-19 Elbow pain No-show for appointment Right knee pain Family History Mother No problems noted. Father No problems noted. Sister No problems noted. Brother No problems noted. Son No problems noted. Son No problems noted. Daughter No problems noted. Maternal Grandmother , 85 No problems noted. Social History Smoking/Tobacco Use Status: Current every day Tobacco Type: cigarettes Tobacco: How many years used: 20 Quit status: has quit before Second Hand Exposure: No Smoking risk assessment performed?: Yes Alcohol Intake: current Alcohol Intake frequency: a few times a week Drug use: Never Substance use type: does not use Household members: significant other Housing: apartment Communication Needs: None Do you need help understanding health information?: Never Pets and animals: No Sexually active: Yes Do you think of yourself as: straight/heterosexual Current gender identity: female What is your relationship status?: refused to answer How often do you talk on the phone with friends or family?: decline to answer How often do you get together with friends or relatives?: decline to answer How often do you attend restorationism or druze services?: decline to answer Do you belong to any clubs or organized social groups?: decline to answer Panel score (0-1 are the most socially isolated patients): 0 What type of physical activity do you participate in: walking Duration: 15-30 minutes/day Frequency: 1-2 times per week Genevieve/Congregation: Congregation Special genevieve needs: No Helmet use: No Drive intox or ride w/intox heavy truck driver: No Do you feel safe at home: Yes Do you feel safe in your relationship?: Yes History History 3 Para 3 Hx # Term Pregnancies Multiple births Hx # Pregnancies Ectopic pregnancies AB induced Hx Number of Living Children 3 AB spontaneous Past Pregnancies Del. Date GA/Weeks # Preg Succ Route Wgt Sex Labor Lgth Anesthesia Location [facility] 10/22/06 No Male [place] 10/03/11 Male [place] 01/14/13 No vaginal 2267.962 g Female at home unknown preg PAWSS Have you Been Recently Intoxicated or Drunk Within the Last 30 days?: No Have you Ever Experienced Previous Episodes of Alcohol Withdrawal?: No Have you ever Experienced Withdrawal Seizures?: No Have you ever Experienced Delirium Tremens(DT)s?: No Have you ever undergone Alcohol Rehabilitation Treatment (i.e, inpt ot outpatient treatment programs)?: No Have you ever Experienced Blackouts?: No Have you ever Combined Alcohol with other Downers within the last 90 days?: No Have you ever Combined Alcohol with any other Substance of Abuse during the last 90 days?: No Positive Blood Alcohol level on Presentation? [PCS.BAL]: No Evidence of Increased Autonomic Activity (i.e. HR>120, tremor, sweating, agitation, nausea)?: No Result: 0
[2023-09-02] MEDS: Orphenadrine 60 MG/2 ML VIAL IM (19:23)
[2023-09-02] MEDS: Cyclobenzaprine 10 MG TAB, 3 TABS/BTL PO (19:23)
[2023-09-02] MEDS: Ketorolac 60 MG/2 ML VIAL IM (19:23)
== END 2023-09-02 19:58 | disposition home or self-care (01) ==
PROVIDERS: Emergency Provider Registered Nurse Emergency; PCP Nurse Practitioner Family
DX: M54.50 Low back pain, unspecified (principal); G89.29 Other chronic pain; F17.210 Nicotine dependence, cigarettes, uncomplicated
CPT/HCPCS: 96372; 99284; J2360; 99283; J1885

== ENCOUNTER 2023-09-15 10:27 | Emergency (ER) | payer MEDICAID, SELFPAY ==
[2023-09-15 10:29] VITALS: BP 162/91; PULSE 90; RESP 16; TEMP 36.4; O2SAT 97
--- NOTE | 2023-09-15 11:13 | ED.GENADUL_ITS ---
Discharge Plan Disposition Patient Disposition: Home Condition: Stable Discharge Details Clinical Impression: Sciatic pain Primary Care Provider: Nick Ritter ED Provider: Gloria Honeycutt Home Meds and New Rx's Prescriptions: New prednisone 20 mg tablet 60 mg PO DAILY 4 Days Qty: 12 0RF Continued sertraline 100 mg tablet 200 mg PO DAILY Qty: 180 3RF magnesium oxide 400 mg magnesium capsule 400 mg PO QHS Qty: 90 3RF Rx Instructions: take for at least 6 weeks riboflavin (vitamin B2) 100 mg tablet 200 mg PO BID Qty: 360 1RF Rx Instructions: take for at least 6 weeks lidocaine 5 % adhesive patch,medicated 1 patch topical DAILY Qty: 30 0RF Rx Instructions: leave on most painful area for up to 12 hrs topiramate [Topamax] 25 mg tablet 25 mg PO QHS Qty: 30 3RF amlodipine 10 mg tablet 10 mg PO DAILY Qty: 90 4RF rizatriptan [Maxalt-GAS PUMPING STATION HELPER] 10 mg tablet,disintegrating 10 mg PO ONCE PRN (Reason: migraine headache) Qty: 9 11RF cyclobenzaprine 10 mg tablet 10 mg PO TID PRN (Reason: muscle spasm) Qty: 30 0RF acetaminophen [Acetaminophen Extra Strength] 500 mg Tablet 1,000 mg PO Q6H PRN Held naproxen 500 mg tablet 500 mg PO BID Qty: 60 3RF Hold Instructions: Resume on 09/20/23. do not take while on prednisone Discharge Instructions Instructions: Sciatica (ED), Lower Back Exercises (ED) Additional Instructions: I encourage you to follow-up with the pain clinic as scheduled. I have prescribed prednisone. Take as prescribed. You may continue to take Tylenol 1000 mg up to 4 times a day as needed. Do not use any alcohol while you are on this medication. Continue using the lidocaine patches and heat/ice when you are not using the patches. I encourage you to do the back pain exercises in the enclosed packet. Return to emergency care if you develop new fevers associated with the back pain, change in bowel or bladder function such as loss of bowel control, numbness in your legs or groin area, inability to walk, or if you are very worried and need to be rechecked again immediately daily Referrals: Nick Ritter, PIPEFITTER HELPER [Primary Care Provider] - HPI General Date/Time Provider Initiated Documentation: 09/15/23 10:37 . HPI Narrative: Hilda is a 43-year-old female who presents to the emergency department today for evaluation of lower back pain that radiates down to the left leg. This is a chronic pain, with recent exacerbation since last night. She reports she has a appointment with pain clinic on 09/24/23. She reports she has been seen multiple times for this, recently received Toradol injection which provided relief for a couple of days. Since last night her lower back pain came back on, now with some hiker down the left side. No associated fever/chills, change in bowel or bladder function, saddle anesthesia/paresthesias, leg weakness, difficulty walking, leg numbness/tingling, color change. No recent trauma or injury. No known inciting incident. No history of bipolar, has tolerated steroids in the past. No history of GI bleed or chronic alcohol use. Related Data Home Medications Medication Instructions Recorded Confirmed acetaminophen 500 mg tablet 1,000 mg PO Q6H PRN 07/22/21 09/15/23 (Acetaminophen Extra Strength) sertraline 100 mg tablet 200 mg (2 x 100 mg) PO DAILY #180 11/17/22 09/15/23 tabs magnesium oxide 400 mg PO QHS #90 caps 11/19/22 09/15/23 riboflavin (vitamin B2) 100 mg 200 mg (2 x 100 mg) PO BID #360 11/19/22 09/15/23 tablet tabs amlodipine 10 mg tablet 10 mg PO DAILY #90 tabs 03/18/23 09/15/23 rizatriptan 10 mg disintegrating 10 mg PO ONCE PRN migraine 03/18/23 09/15/23 tablet (Maxalt-GAS PUMPING STATION HELPER) headache #9 tabs lidocaine 5 % topical patch 1 patch topical DAILY #30 ea 04/22/23 09/15/23 topiramate 25 mg tablet (Topamax) 25 mg PO QHS #30 tabs 06/30/23 09/15/23 cyclobenzaprine 10 mg tablet 10 mg PO TID PRN muscle spasm #30 07/22/23 09/15/23 tabs naproxen 500 mg tablet 500 mg PO BID #60 tabs 07/22/23 09/15/23 prednisone 20 mg tablet 60 mg (3 x 20 mg) PO DAILY 4 days 09/15/23 #12 tabs Previous Rx's Medication Instructions Recorded sertraline 100 mg tablet 200 mg (2 x 100 mg) PO DAILY #180 11/17/22 tabs magnesium oxide 400 mg PO QHS #90 caps 11/19/22 riboflavin (vitamin B2) 100 mg 200 mg (2 x 100 mg) PO BID #360 11/19/22 tablet tabs amlodipine 10 mg tablet 10 mg PO DAILY #90 tabs 03/18/23 rizatriptan 10 mg disintegrating 10 mg PO ONCE PRN migraine 03/18/23 tablet (Maxalt-GAS PUMPING STATION HELPER) headache #9 tabs lidocaine 5 % topical patch 1 patch topical DAILY #30 ea 04/22/23 topiramate 25 mg tablet (Topamax) 25 mg PO QHS #30 tabs 06/30/23 cyclobenzaprine 10 mg tablet 10 mg PO TID PRN muscle spasm #30 07/22/23 tabs naproxen 500 mg tablet 500 mg PO BID #60 tabs 07/22/23 prednisone 20 mg tablet 60 mg (3 x 20 mg) PO DAILY 4 days 09/15/23 #12 tabs Allergies Allergy/AdvReac Type Severity Reaction Status Date / Time ibuprofen Allergy Severe Anaphylaxis Verified 09/15/23 10:35 Buspirone AdvReac Mild Dizziness/L Uncoded 09/02/23 18:57 ighthead General Stated Complaint: Nk/Back Pain AGUSTIN: 4 Review of Systems Narrative: see HPI Exam Const General: cooperative, healthy appearing and well groomed Neck Neck: normal visual inspection and full ROM Resp Effort & Inspection: normal respiratory effort and able to speak in complete sentences Back/Spine/Pelvis Cervical Spine: normal cervical lordosis Thoracic/Lumbar Spine: thoracic and lumbar spine normal to inspection Neuro General: deep tendon reflexes 2+ bilaterally Gait: normal gait Motor: muscle tone normal throughout Sensory Exam: no sensory deficits noted Extrem General: no pedal edema and normal gait Course Vital Signs Vital signs: Vital Signs Temperature 36.4 C L 09/15/23 10:29 Pulse 90 09/15/23 10:29 Respiratory Rate 16 09/15/23 10:29 Blood Pressure 162/91 H 09/15/23 10:29 Pulse Oximetry 97 09/15/23 10:29 Temperature 36.4 C L 09/15/23 10:29 Pulse 90 09/15/23 10:29 Respiratory Rate 16 09/15/23 10:29 Respiratory Effort Normal 09/15/23 10:36 Blood Pressure 162/91 H 09/15/23 10:29 Blood Pressure Position Sitting 09/15/23 10:29 Pulse Oximetry 97 09/15/23 10:29 Oxygen Delivery Method Room Air 09/15/23 10:29 Oxygen Flow Rate 0 09/15/23 10:29 Pain Level 10 09/15/23 10:29 Medical Decision Making Hilda is a 43-year-old female who presents to the emergency department today for evaluation of lower back pain that radiates down to the left leg. This is a chronic pain, with recent exacerbation since last night. She reports she has a appointment with pain clinic on 09/24/23. She reports she has been seen multiple times for this, recently received Toradol injection which provided relief for a couple of days. Since last night her lower back pain came back on, now with some hiker down the left side. No associated fever/chills, change in bowel or bladder function, saddle anesthesia/paresthesias, leg weakness, difficulty walking, leg numbness/tingling, color change. No recent trauma or injury. No known inciting incident. No history of bipolar, has tolerated steroids in the past. No history of GI bleed or chronic alcohol use. Physical exam reassuring. Sensation grossly intact to lower extremities. 2+ patellar reflexes bilaterally. No point tenderness/step-off/deformity with palpation of T-spine or L-spine. No overlying rashes. 5 out of 5 muscle strength to lower extremities. Normal gait. History and presentation consistent with left-sided lumbar radiculopathy. No red flags indicating need for emergent imaging such as spinal epidural abscess, cauda equina, or trauma. As patient has had little improvement with naproxen since onset of this most recent pain episode, advise stopping naproxen and starting Tylenol with prednisone burst. Advised patient to follow-up with pain clinic as scheduled. Cautioned against use of NSAIDs with steroids, as well as importance of avoidance of alcohol. Reviewed symptomatic management and red flags indicate need for return to emergency care. 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 Anxiety (Chronic) Abnormal uterine bleeding (Acute) Medical History Skin lesion right knee, lateral side, raised, firm, tender Maltracking of left patella COVID-19 Elbow pain No-show for appointment Right knee pain Family History Mother No problems noted. Father No problems noted. Sister No problems noted. Brother No problems noted. Son No problems noted. Son No problems noted. Daughter No problems noted. Maternal Grandmother , 85 No problems noted. Social History Smoking/Tobacco Use Status: Current every day Tobacco Type: cigarettes Tobacco: How many years used: 20 Quit status: has quit before Second Hand Exposure: No Smoking risk assessment performed?: Yes Alcohol Intake: current Alcohol Intake frequency: a few times a week Drug use: Never Substance use type: does not use Household members: significant other Housing: apartment Communication Needs: None Do you need help understanding health information?: Never Pets and animals: No Sexually active: Yes Do you think of yourself as: straight/heterosexual Current gender identity: female What is your relationship status?: refused to answer How often do you talk on the phone with friends or family?: decline to answer How often do you get together with friends or relatives?: decline to answer How often do you attend adventism or episcopalian services?: decline to answer Do you belong to any clubs or organized social groups?: decline to answer Panel score (0-1 are the most socially isolated patients): 0 What type of physical activity do you participate in: walking Duration: 15-30 minutes/day Frequency: 1-2 times per week Genevieve/Buddhism: Confucianist Special genevieve needs: No Helmet use: No Drive intox or ride w/intox jinrikisha driver: No Do you feel safe at home: Yes Do you feel safe in your relationship?: Yes History History 3 Para 3 Hx # Term Pregnancies Multiple births Hx # Pregnancies Ectopic pregnancies AB induced Hx Number of Living Children 3 AB spontaneous Past Pregnancies Del. Date GA/Weeks # Preg Succ Route Wgt Sex Labor Lgth Anesth esia Location Prov Complic 10/22/06 No Male [place] 10/03/11 Male [place] 01/14/13 No vaginal 2267.962 g Female at home unknown preg
[2023-09-15] MEDS: predniSONE 20 MG TAB 60 MG PO (11:51)
[2023-09-15] MEDS: Acetaminophen 500 MG TAB 1000 MG PO (11:51)
== END 2023-09-15 11:51 | disposition home or self-care (01) ==
PROVIDERS: Emergency Provider Nurse Practitioner Family; PCP Nurse Practitioner Family
DX: M54.42 Lumbago with sciatica, left side (principal); F17.210 Nicotine dependence, cigarettes, uncomplicated; E78.5 Hyperlipidemia, unspecified
CPT/HCPCS: 99283; J7512

== ENCOUNTER 2023-11-11 16:26 | Outpatient (CLI) | payer MEDICAID, SELFPAY ==
--- NOTE | 2023-11-11 06:00 | DI.RAD_ITS ---
Exam(s) XR PAIN CLINIC LUMBAR SP 2V EXAM: XR PAIN CLINIC LUMBAR SP 2V CLINICAL HISTORY: Lumbar Radiculopathy TECHNIQUE: 2D and realtime digital imaging was performed. CONTRAST MATERIAL: Refer to procedure report. COMPARISON: No exams were available for comparison FINDINGS: Fluoroscopy was provided for Dr. Charlton during the performance of a lumbar epidural steroid injection. Please refer to the procedure report for complete details. Ka,r=14.8 mGy IMPRESSION: RADIATION DOSE DELIVERED: 0.0 0.0 0
[2023-11-11 16:34] VITALS: BP 158/96; PULSE 90; RESP 20; TEMP 37; O2SAT 96
[2023-11-11 17:00] VITALS: PULSE 92; RESP 20; O2SAT 96
[2023-11-11 17:09] VITALS: BP 154/106; PULSE 86
[2023-11-11 17:12] VITALS: BP 180/102; PULSE 79
[2023-11-11 17:14] VITALS: BP 147/89; PULSE 83
[2023-11-11] MEDS: Omnipaque 240 MG/ML 50 ML BTL IJ (17:20)
[2023-11-11] MEDS: methylPREDNISolone ACETATE 80 MG/ML VIAL IJ (17:21)
[2023-11-11] MEDS: Epidural Tray 1 EACH MC (17:21)
--- NOTE | 2023-11-12 14:02 | PDOC.PAIN ---
Date of service: 11/11/23 Time of Service: 17:30 Pain Managment Procedure Note Procedure Note Procedure Note: PROCEDURE NOTE LUMBAR EPIDURAL STEROID INJECTION Date of Service: November 11, 2023 Patient:Hilda Shine? Provider: Mo Charlton DO, MPH Hilda Garcia has been referred to the [facility] for a lumbar epidural steroid injection. Pre-operative diagnosis: Lumbosacral Radiculopathy Post-operative diagnosis: Same Pre-Procedure Pain: VAS= 6 /10 Comments: I previously evaluated her in the clinic on 09/24/23. Her symptoms have not changed. Hilda was interviewed and the medical record was reviewed.? There were no medical, pharmacologic, radiographic or other structural contraindications to attempting fluoroscopically guided Lumbar epidural steroid injection.? Risks, potential side effects, indications, and potential benefits of the procedure were reviewed with Hilda.? Questions and concerns were addressed.? After it was clear that Hilda was fully informed about the procedure, the printed consent form was signed by the patient and myself.? Hilda was placed in the prone position on the fluoroscopy table and automated blood pressure cuff and pulse oximeter applied. The skin entry point for entering/approaching the epidural space for the lumbar epidural steroid injection was marked. Following thorough chlorhexadine preparation of the skin and draping and 1% lidocaine infiltration of the skin entry point and subcutaneous tissues, an 18 gauge Touhy needle was placed and advanced under fluoroscopic guidance and with loss of resistance technique into the L5-S1 epidural space. Needle tip placement and depth were aided and confirmed by fluoroscopy. There was no paresthesia or return of blood or CSF through the needle. 1 mls of Omnipaque 240 was injected with clear epidural spread confirmed with fluoroscopy. 80 mg of Depo-Medrol was? injected. This was followed by 1 ml of preservative-free normal saline to flush the steroid out of the needle. There was no unusual discomfort expressed by Hilda. The needle was withdrawn without difficulty. (49 mls of Omnipaque was wasted) Hilda was observed and was without hemodynamic, neurologic, or allergic reactions.? Fluoroscopic images were digitally archived. Hilda's vital signs were stable throughout the procedure and were as recorded in nursing records. Follow up plans and appointments were discussed with Hilda. Post procedure instruction was given as documented in nursing records and having met discharge criteria Hilda was [facility] from the [facility]. COMMENTS: No apparent complications. Post-procedure pain: VAS= 2/10. Hilda to contact [facility] as needed. If at least 50% improvement in pain and/or function for at least 3 months is achieved, this procedure can be repeated. I personally performed this entire procedure. MO CHARLTON DO, MPH ABPMR-subspecialty board certification in Pain Medicine [facility]
== END 2023-11-11 16:27 | disposition home or self-care (01) ==
LOC: PC 16:26
PROVIDERS: PCP Nurse Practitioner Family; Visit Provider Preventive Medicine Occupational Medicine
DX: M54.17 Radiculopathy, lumbosacral region (principal)
CPT/HCPCS: 62323; 72100; J1010; Q9967

== ENCOUNTER 2023-12-11 12:13 | Emergency (ER) | payer MEDICAID, SELFPAY ==
[2023-12-11 12:15] VITALS: BP 118/82; PULSE 102; RESP 20; TEMP 36.7; O2SAT 97
[2023-12-11] MEDS: Acetaminophen 500 MG TAB 1000 MG PO (13:07)
[2023-12-11] MEDS: Dexamethasone 4 MG TAB 8 MG PO (13:08)
[2023-12-11] MEDS: Lidocaine 5% Patch 1 PATCH TP (13:08)
[2023-12-11] MEDS: oxyCODONE 10 MG TAB PO (13:08)
[2023-12-11] MEDS: Methocarbamol 500 MG TAB 1000 MG PO (14:19)
--- NOTE | 2023-12-11 16:08 | ED.GENADUL_ITS ---
Discharge Plan Disposition Patient Disposition: Home Condition: Stable Discharge Details Clinical Impression: Back pain Primary Care Provider: Nick Ritter ED Provider: Kenney Montenegro Home Meds and New Rx's Prescriptions: New methocarbamol 750 mg tablet 750 mg PO TID Qty: 30 0RF No Action sertraline 100 mg tablet 200 mg PO DAILY Qty: 180 3RF riboflavin (vitamin B2) 100 mg tablet 200 mg PO BID Qty: 360 1RF Rx Instructions: take for at least 6 weeks lidocaine 5 % adhesive patch,medicated 1 patch topical DAILY Qty: 30 0RF Rx Instructions: leave on most painful area for up to 12 hrs amlodipine 10 mg tablet 10 mg PO DAILY Qty: 90 4RF rizatriptan [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] 10 mg tablet,disintegrating 10 mg PO ONCE PRN (Reason: migraine headache) Qty: 9 11RF naproxen 500 mg tablet 500 mg PO BID Qty: 60 3RF magnesium oxide 400 mg magnesium capsule 400 mg PO QHS Qty: 90 3RF Rx Instructions: take for at least 6 weeks topiramate 25 mg tablet See Rx Instructions .ROUTE .COMPLEX Qty: 30 1RF Dose Instruction: TAKE ONE TABLET BY MOUTH AT BEDTIME Rx Instructions: TAKE ONE TABLET BY MOUTH AT BEDTIME cyclobenzaprine 10 mg tablet 10 mg PO TID PRN (Reason: muscle spasm) Qty: 30 0RF acetaminophen [Acetaminophen Extra Strength] 500 mg Tablet 1,000 mg PO Q6H PRN Discharge Instructions Instructions: Low Back Pain ED Additional Instructions: * Please follow-up with pain management and your primary care for reevaluation of ongoing symptoms * Take prescription medication as needed and Motrin and Tylenol for additional pain. HPI General Date/Time Provider Initiated Documentation: 12/11/23 12:19 . Limitations to Documentation: no limitations . Information obtained by: patient . HPI Narrative: 43-year-old female with chronic back pain presents for evaluation of acute worsening of her symptoms. She reports that pain is localized in the middle of the back. Does not radiate, not associated with weakness, numbness or difficulty walking. Denies any abdominal pain or urinary symptoms, denies any fever. She reports that she has been evaluated by pain management and got a steroid injection in her back which she does not feel has improved her symptoms Related Data Home Medications ?Medication ?Instructions ?Recorded ?Confirmed acetaminophen 500 mg tablet 1,000 mg PO Q6H PRN 07/22/21 12/11/23 (Acetaminophen Extra Strength) sertraline 100 mg tablet 200 mg (2 x 100 mg) PO DAILY #180 11/17/22 12/11/23 tabs riboflavin (vitamin B2) 100 mg 200 mg (2 x 100 mg) PO BID #360 11/19/22 12/11/23 tablet tabs amlodipine 10 mg tablet 10 mg PO DAILY #90 tabs 03/18/23 12/11/23 rizatriptan 10 mg disintegrating 10 mg PO ONCE PRN migraine 03/18/23 12/11/23 tablet (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) headache #9 tabs lidocaine 5 % topical patch 1 patch topical DAILY #30 ea 04/22/23 12/11/23 naproxen 500 mg tablet 500 mg PO BID #60 tabs 07/22/23 12/11/23 magnesium oxide 400 mg PO QHS #90 caps 11/30/23 12/11/23 topiramate 25 mg tablet See Rx Instructions .Route 12/09/23 12/11/23 .COMPLEX #30 tabs cyclobenzaprine 10 mg tablet 10 mg PO TID PRN muscle spasm #30 12/11/23 12/11/23 tabs methocarbamol 750 mg tablet 750 mg PO TID #30 tabs 12/11/23 Previous Rx's ?Medication ?Instructions ?Recorded sertraline 100 mg tablet 200 mg (2 x 100 mg) PO DAILY #180 11/17/22 tabs riboflavin (vitamin B2) 100 mg 200 mg (2 x 100 mg) PO BID #360 11/19/22 tablet tabs amlodipine 10 mg tablet 10 mg PO DAILY #90 tabs 03/18/23 rizatriptan 10 mg disintegrating 10 mg PO ONCE PRN migraine 03/18/23 tablet (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) headache #9 tabs lidocaine 5 % topical patch 1 patch topical DAILY #30 ea 04/22/23 naproxen 500 mg tablet 500 mg PO BID #60 tabs 07/22/23 magnesium oxide 400 mg PO QHS #90 caps 11/30/23 topiramate 25 mg tablet See Rx Instructions .Route 12/09/23 .COMPLEX #30 tabs cyclobenzaprine 10 mg tablet 10 mg PO TID PRN muscle spasm #30 12/11/23 tabs methocarbamol 750 mg tablet 750 mg PO TID #30 tabs 12/11/23 Allergies Allergy/AdvReac Type Severity Reaction Status Date / Time ibuprofen Allergy Severe Anaphylaxis Verified 12/11/23 12:22 Buspirone AdvReac Mild Dizziness/L Uncoded 12/11/23 12:22 ighthead General Stated Complaint: Nk/Back Pain AGUSTIN: 3 Exam Narrative Exam Narrative: Review of Systems: All systems reviewed & are unremarkable except as noted in HPI and below Well-developed, no acute distress Obese NCAT RRR Unlabored respiratory effort Nondistended abdomen , soft nontender Midline back without step-off or tenderness, no CVA tenderness bilateral lower extremities with normal sensation, normal strength bilaterally Normal gait Course Vital Signs Vital signs: Vital Signs Temperature 36.7 C 12/11/23 12:15 Pulse 102 H 12/11/23 12:15 Respiratory Rate 20 12/11/23 12:15 Blood Pressure 118/82 12/11/23 12:15 Pulse Oximetry 97 12/11/23 12:15 Temperature 36.7 C 12/11/23 12:15 Pulse 102 H 12/11/23 12:15 Respiratory Rate 20 12/11/23 12:15 Respiratory Effort Normal, Non-Labored 12/11/23 12:24 Blood Pressure 118/82 12/11/23 12:15 Blood Pressure Position Sitting 12/11/23 12:15 Pulse Oximetry 97 12/11/23 12:15 Oxygen Delivery Method Room Air 12/11/23 12:15 Oxygen Flow Rate 0 12/11/23 12:15 Pain Level 10 12/11/23 13:08 Medical Decision Making Emergent evaluation of acute on chronic back pain. Patient does not have fever, history of malignancy, no history of IV drug use. She is followed by pain management recently had a epidural steroid injection. She does not report relief with this. She has no neurologic findings that are concerning for acute spinal cord emergency. She reports compliance with her medications. She was provided an additional medications for her symptoms in the emergency department and after period of evaluation, she was reassessed and noted to have significant improvement in her pain. She was discharged with a prescription for Robaxin. Recommend close follow-up and reevaluation with PCP and pain management. 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 Anxiety (Chronic) Abnormal uterine bleeding (Acute) Medical History Skin lesion right knee, lateral side, raised, firm, tender Maltracking of left patella COVID-19 Elbow pain No-show for appointment Right knee pain Family History Mother No problems noted. Father No problems noted. Sister No problems noted. Brother No problems noted. Son No problems noted. Son No problems noted. Daughter No problems noted. Maternal Grandmother , 85 No problems noted. Social History Smoking/Tobacco Use Status: Current every day Tobacco Type: cigarettes Tobacco: How many years used: 20 Quit status: has quit before Second Hand Exposure: No Smoking risk assessment performed?: Yes Alcohol Intake: current Alcohol Intake frequency: a few times a week Drug use: Never Substance use type: does not use Household members: significant other Housing: apartment Communication Needs: None Do you need help understanding health information?: Never Pets and animals: No Sexually active: Yes Do you think of yourself as: straight/heterosexual Current gender identity: female What is your relationship status?: refused to answer How often do you talk on the phone with friends or family?: decline to answer How often do you get together with friends or relatives?: decline to answer How often do you attend episcopalian or buddhist services?: decline to answer Do you belong to any clubs or organized social groups?: decline to answer Panel score (0-1 are the most socially isolated patients): 0 What type of physical activity do you participate in: walking Duration: 15-30 minutes/day Frequency: 1-2 times per week Genevieve/Cheondoism: Anglican Special genevieve needs: No Helmet use: No Drive intox or ride w/intox special needs bus driver: No Do you feel safe at home: Yes Do you feel safe in your relationship?: Yes History History 3 Para 3 Hx # Term Pregnancies Multiple births Hx # Pregnancies Ectopic pregnancies AB induced Hx Number of Living Children 3 AB spontaneous Past Pregnancies Del. Date GA/Weeks # Preg Succ Route Wgt Sex Labor Lgth Anesth esia Location [facility] 10/22/06 No Male [place] 10/03/11 [place] 01/14/13 No vaginal 2267.962 g Female at home unknown preg PAWSS Have you Been Recently Intoxicated or Drunk Within the Last 30 days?: No Have you Ever Experienced Previous Episodes of Alcohol Withdrawal?: No Have you ever Experienced Withdrawal Seizures?: No Have you ever Experienced Delirium Tremens(DT)s?: No Have you ever undergone Alcohol Rehabilitation Treatment (i.e, inpt ot outpatient treatment programs)?: No Have you ever Experienced Blackouts?: No Have you ever Combined Alcohol with other Downers within the last 90 days?: No Have you ever Combined Alcohol with any other Substance of Abuse during the last 90 days?: No Positive Blood Alcohol level on Presentation? [PCS.BAL]: No Evidence of Increased Autonomic Activity (i.e. HR>120, tremor, sweating, agitation, nausea)?: No Result: 0
== END 2023-12-11 14:49 | disposition home or self-care (01) ==
PROVIDERS: Emergency Provider Emergency Medicine; PCP Nurse Practitioner Family
DX: M54.50 Low back pain, unspecified (principal); I10 Essential (primary) hypertension; E78.5 Hyperlipidemia, unspecified; F17.210 Nicotine dependence, cigarettes, uncomplicated
CPT/HCPCS: 99283; J8540

== ENCOUNTER 2024-06-22 13:53 | Outpatient (CLI) | payer MEDICAID, SELFPAY ==
[2024-06-22 13:57] VITALS: BP 128/79; PULSE 98; RESP 20; TEMP 36.6; O2SAT 98
[2024-06-22 14:30] VITALS: BP 162/110; PULSE 80; PULSE 84; RESP 25; O2SAT 98
[2024-06-22 14:31] VITALS: PULSE 82; RESP 25; O2SAT 96
[2024-06-22 14:36] VITALS: BP 160/111; PULSE 76; PULSE 78; RESP 19; O2SAT 97
--- NOTE | 2024-06-22 14:40 | DI.RAD_ITS ---
Exam(s) XR PAIN CLINIC LUMBAR SP 2V EXAM: XR PAIN CLINIC LUMBAR SP 2V CLINICAL HISTORY: Dx: Lumbar Radiculopathy. TECHNIQUE: Fluoroscopy was provided for the referring physician for guidance with performing pain cl inic injection procedure. COMPARISON: No exams were available for comparison FINDINGS: Please see procedure note for details. Fluoro time: 14.2 seconds RADIATION DOSE DELIVERED: Ka,r=9.8 mGy
[2024-06-22 14:42] VITALS: BP 158/90; PULSE 79
[2024-06-22] MEDS: methylPREDNISolone ACETATE 80 MG/ML VIAL IJ (14:46)
[2024-06-22] MEDS: Omnipaque 240 MG/ML 50 ML BTL IJ (14:46)
--- NOTE | 2024-06-22 14:46 | PDOC.PAIN ---
Date of service: 06/22/24 Time of Service: 14:46 Pain Managment Procedure Note Procedure Note Procedure Note: PROCEDURE NOTE LUMBAR EPIDURAL STEROID INJECTION Date of Service: June 22, 2024 Patient:Hilda Shine? Provider: Mo Charlton DO, MPH Hilda Garcia has been referred to the [facility] for a lumbar epidural steroid injection. Pre-operative diagnosis: Lumbosacral Radiculopathy ICD-10 M54.16 Post-operative diagnosis: Same Pre-Procedure Pain: VAS= 10 /10 Comments: She last had this procedure on 11/12/23 and had at least 4 months of >50% pain relief and no complications. Her pain has now mostly returned. Hilda was interviewed and the medical record was reviewed.? There were no medical, pharmacologic, radiographic or other structural contraindications to attempting fluoroscopically guided Lumbar epidural steroid injection.? Risks, potential side effects, indications, and potential benefits of the procedure were reviewed with Hilda.? Questions and concerns were addressed.? After it was clear that Hilda was fully informed about the procedure, the printed consent form was signed by the patient and myself.? Hilda was placed in the prone position on the fluoroscopy table and automated blood pressure cuff and pulse oximeter applied. The skin entry point for entering/approaching the epidural space for the lumbar epidural steroid injection was marked. Following thorough chlorhexadine preparation of the skin and draping and 1% lidocaine infiltration of the skin entry point and subcutaneous tissues, an 18 gauge Touhy needle was placed and advanced under fluoroscopic guidance and with loss of resistance technique into the L5-S1 epidural space. Needle tip placement and depth were aided and confirmed by fluoroscopy. There was no paresthesia or return of blood or CSF through the needle. 1 mls of Omnipaque 240 was injected with clear epidural spread confirmed with fluoroscopy. 80 mg of Depo-Medrol was? injected. This was followed by 1 ml of preservative-free normal saline to flush the steroid out of the needle. There was no unusual discomfort expressed by Hilda. The needle was withdrawn without difficulty. (49 mls of Omnipaque was wasted) Hilda was observed and was without hemodynamic, neurologic, or allergic reactions.? Fluoroscopic images were digitally archived. Hilda's vital signs were stable throughout the procedure and were as recorded in nursing records. Follow up plans and appointments were discussed with Hilda. Post procedure instruction was given as documented in nursing records and having met discharge criteria Hilda was discharged from the [facility]. COMMENTS: No apparent complications. Post-procedure pain: VAS= 2/10. Hilda to contact [facility] as needed. If at least 50% improvement in pain and/or function for at least 3 months is achieved, this procedure can be repeated. I personally performed this entire procedure. MO CHARLTON DO, MPH ABPMR-subspecialty board certification in Pain Medicine [facility] Coding Conscious Sedation used for procedure: No CPT Codes: Inj Spine L/S w/Imaging - 37883 ([id number] ~G) Additional Codes: Date of Service (62497) Date of service: 06/22/24
[2024-06-22] MEDS: Epidural Tray 1 EACH MC (14:47)
== END 2024-06-22 13:54 | disposition home or self-care (01) ==
LOC: PC 13:53
PROVIDERS: PCP Nurse Practitioner Family; Visit Provider Preventive Medicine Occupational Medicine
DX: M54.16 Radiculopathy, lumbar region (principal)
CPT/HCPCS: 62323; 72100; J1010; Q9967

== ENCOUNTER 2024-06-30 09:27 | Emergency (ER) | payer MEDICAID, SELFPAY ==
[2024-06-30 09:44] VITALS: BP 155/95; PULSE 95; RESP 14; TEMP 36.7; O2SAT 98
--- NOTE | 2024-06-30 10:20 | ED.GENADUL_ITS ---
Discharge Plan Disposition Patient Disposition: Home Condition: Stable Discharge Details Clinical Impression: Upper back pain Primary Care Provider: Nick Ritter ED Provider: Lila Blood Home Meds and New Rx's Prescriptions: No Action amlodipine 10 mg tablet 10 mg PO DAILY Qty: 90 4RF lidocaine 5 % adhesive patch,medicated 1 patch topical DAILY Qty: 30 0RF Rx Instructions: leave on most painful area for up to 12 hrs magnesium oxide 400 mg magnesium capsule 400 mg PO QHS Qty: 90 3RF Rx Instructions: take for at least 6 weeks naproxen 500 mg tablet 500 mg PO BID Qty: 60 3RF riboflavin (vitamin B2) 100 mg tablet 200 mg PO BID Qty: 360 1RF Rx Instructions: take for at least 6 weeks rizatriptan [Maxalt-DIFFUSER OPERATOR] 10 mg tablet,disintegrating 10 mg PO ONCE PRN (Reason: migraine headache) Qty: 9 11RF omeprazole 20 mg capsule,delayed release(DR/EC) 20 mg PO DAILY Qty: 90 1RF escitalopram oxalate 20 mg tablet 20 mg PO DAILY Qty: 90 4RF topiramate 25 mg tablet See Rx Instructions .ROUTE .COMPLEX Qty: 90 3RF Dose Instruction: TAKE ONE TABLET BY MOUTH AT BEDTIME Rx Instructions: TAKE ONE TABLET BY MOUTH AT BEDTIME fluticasone propionate [Flonase Allergy Relief] 50 mcg/actuation spray,suspension 1 spray intranasal Q12H Qty: 16 4RF Rx Instructions: administer into each nostril methocarbamol 750 mg tablet 750 mg PO QID PRN (Reason: muscle spasm) Qty: 60 0RF acetaminophen [Acetaminophen Extra Strength] 500 mg Tablet 1,000 mg PO Q6H PRN Discharge Instructions Instructions: Upper Back Pain (DC) Additional Instructions: You were seen in the emergency department today for evaluation of back pain after a fall. In our department you do full physical examination performed, and received medications for your pain. You had a CT scan of your neck and back that did not show any fractures, but you do need to follow-up with your pain clinic and primary care providers for reassessment. Thank you for allowing us to be part of your care. HPI General Mode of arrival: ambulatory . Date/Time Provider Initiated Documentation: 06/30/24 10:01 . Limitations to Documentation: no limitations . Information obtained by: patient, family and old records reviewed . HPI Narrative: HPI: This is a 44-year-old female patient with a past medical history significant for chronic back pain, migraines, hypertension, hyperlipidemia, who is presenting for evaluation of back and neck pain. The patient reports that she sustained a trip and fall on both and Thursday, and since that time has had sharp back pain that has not improved with naproxen or methocarbamol. She will is seen by her pain clinic, did have epidural injections, but states that her pain has persisted and they recommended that she present for evaluation to ensure that she does not have a fracture or other injury. The patient reports that she has not had any fevers or chills, has not had any procedures done on that back, states she is not experiencing numbness, tingling, saddle anesthesia, or bowel or bladder incontinence. Exam: Gen: Awake and alert, in no apparent distress HEENT: Non-icteric sclera Neck: Supple Lungs: No apparent respiratory distress, normal respiratory effort. CV: Appears well perfused Abdomen: Non-distended MSK: Moves 4 extremities without apparent limitation in ROM. The patient has tenderness to palpation of the upper thoracic and lumbar spine, as well as the left-sided paraspinal muscles. She has no overlying skin changes or step-offs, full range of motion of the back during flexion and extension. Skin: Visualized skin without rashes, cyanosis. Neuro: Normal Gait, the patient has 5 out of 5 strength in her bilateral lower extremities, with no sensory deficits. Speaks in full, clear sentences. Psych: Appropriate for situation. MDM: This is a 44-year-old female patient presenting for evaluation of back pain after fall. Differential includes but is not limited to fracture, dislocation, certainly considered musculoskeletal back pain exacerbation. Reassuringly, the patient has no red flag symptoms to suggest spinal epidural abscess, hematoma, cauda equina, or other spinal, cord compression syndrome. No overlying skin changes to suggest herpes zoster, you have no urinary symptoms to suggest renal stone. The distribution of the pain in this hemodynamically appropriate patient would be less concerning for an aortic pathology. We will provide the patient with Tylenol, Toradol, and a lidocaine patch for initial symptomatic management, and proceed with CT of the C/T/L-spine without contrast. ED Course: The patient reports ongoing pain after this initial round of medications, and did receive a single oral morphine with excellent reduction in her pain. CT of her C/T/L-spine was independently reviewed by myself, and shows no evidence of fracture or subluxation in the spine. The patient remains ambulatory and neuro intact, and has pain clinic follow-up. At this time, the patient has had a full medical evaluation and is safe for discharge to home. They are hemodynamically stable, ambulatory, and tolerating PO. They are understanding of the follow-up plan and return precautions. They left our facility without incident. Lila Blood MD Related Data Home Medications ?Medication ?Instructions ?Recorded ?Confirmed acetaminophen 500 mg tablet 1,000 mg PO Q6H PRN 07/22/21 06/30/24 (Acetaminophen Extra Strength) topiramate 25 mg tablet See Rx Instructions .Route 12/16/23 06/30/24 .COMPLEX #90 tabs amlodipine 10 mg tablet 10 mg PO DAILY #90 tabs 02/15/24 06/30/24 escitalopram oxalate 20 mg tablet 20 mg PO DAILY #90 tabs 02/15/24 06/30/24 lidocaine 5 % topical patch 1 patch topical DAILY #30 ea 02/15/24 06/30/24 magnesium oxide 400 mg PO QHS #90 caps 02/15/24 06/30/24 naproxen 500 mg tablet 500 mg PO BID #60 tabs 02/15/24 06/30/24 omeprazole 20 mg capsule,delayed 20 mg PO DAILY #90 caps 02/15/24 06/30/24 release riboflavin (vitamin B2) 100 mg 200 mg (2 x 100 mg) PO BID #360 02/15/24 06/30/24 tablet tabs rizatriptan 10 mg disintegrating 10 mg PO ONCE PRN migraine 02/15/24 06/30/24 tablet (Maxalt-DIFFUSER OPERATOR) headache #9 tabs methocarbamol 750 mg tablet 750 mg PO QID PRN muscle spasm #60 05/05/24 06/30/24 tabs fluticasone propionate 50 1 spray intranasal Q12H #16 grams 05/13/24 06/30/24 mcg/actuation nasal spray,suspension (Flonase Allergy Relief) Previous Rx's ?Medication ?Instructions ?Recorded topiramate 25 mg tablet See Rx Instructions .Route 12/16/23 .COMPLEX #90 tabs amlodipine 10 mg tablet 10 mg PO DAILY #90 tabs 02/15/24 escitalopram oxalate 20 mg tablet 20 mg PO DAILY #90 tabs 02/15/24 lidocaine 5 % topical patch 1 patch topical DAILY #30 ea 02/15/24 magnesium oxide 400 mg PO QHS #90 caps 02/15/24 naproxen 500 mg tablet 500 mg PO BID #60 tabs 02/15/24 omeprazole 20 mg capsule,delayed 20 mg PO DAILY #90 caps 02/15/24 release riboflavin (vitamin B2) 100 mg 200 mg (2 x 100 mg) PO BID #360 02/15/24 tablet tabs rizatriptan 10 mg disintegrating 10 mg PO ONCE PRN migraine 02/15/24 tablet (Maxalt-DIFFUSER OPERATOR) headache #9 tabs methocarbamol 750 mg tablet 750 mg PO QID PRN muscle spasm #60 05/05/24 tabs fluticasone propionate 50 1 spray intranasal Q12H #16 grams 05/13/24 mcg/actuation nasal spray,suspension (Flonase Allergy Relief) Allergies Allergy/AdvReac Type Severity Reaction Status Date / Time ibuprofen Allergy Severe Anaphylaxis Verified 06/30/24 09:47 buspirone Allergy Intermediate Dizziness/L Verified 06/30/24 09:47 ighthead General Stated Complaint: Nk/Back Pain AGUSTIN: 4 Course Vital Signs Vital signs: Vital Signs Temperature 36.7 C 06/30/24 09:44 Pulse 95 H 06/30/24 09:44 Respiratory Rate 14 06/30/24 09:44 Blood Pressure 155/95 H 06/30/24 09:44 Pulse Oximetry 98 06/30/24 09:44 Temperature 36.7 C 06/30/24 09:44 Temperature Source Oral 06/30/24 09:44 Pulse 95 H 06/30/24 09:44 Respiratory Rate 14 06/30/24 09:44 Blood Pressure 155/95 H 06/30/24 09:44 Blood Pressure Position Sitting 06/30/24 09:44 Pulse Oximetry 98 06/30/24 09:44 Oxygen Delivery Method Room Air 06/30/24 09:44 Oxygen Flow Rate 0 06/30/24 09:44 Pain Level 10 06/30/24 09:44 Medical Decision Making Quality:SDOH Health Related Social Needs: No Data to Display PFSH All Active Problems (Updated 06/30/24 @ 13:28 by Lila Blood MD) Lumbar radiculopathy (Acute) Post-nasal drip (Acute) BMI 37.0-37.9, adult (Acute) GERD (gastroesophageal reflux disease) (Chronic) Lumbar nerve root impingement (Acute) Migraine headache without aura (Acute) High risk human papillomavirus (HPV) DNA test positive (Acute) DUB (dysfunctional uterine bleeding) (Acute) Macromastia (Acute) Upper back pain (Acute) Hypertension (Chronic) Abnormal Pap smear of cervix (Acute) Hyperlipidemia (Chronic) 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 Anxiety (Chronic) Abnormal uterine bleeding (Acute) Medical History Lower back pain Skin lesion right knee, lateral side, raised, firm, tender Maltracking of left patella COVID-19 Elbow pain No-show for appointment Right knee pain Family History Mother Hypertension Father No problems noted. Sister No problems noted. Brother No problems noted. Son No problems noted. Son No problems noted. Daughter No problems noted. Maternal Grandmother , 85 Heart disease Hypertension Social History Smoking/Tobacco Use Status: Current every day Tobacco Type: cigarettes Tobacco: How many years used: 20 Quit status: has quit before Second Hand Exposure: No Smoking risk assessment performed?: Yes Alcohol Intake: current Alcohol Intake frequency: holidays/special occasions only Alcohol type: wine Details: 6 or more drinks monthly or less Drug use: Never Substance use type: does not use Adopted: No Household members: significant other and children Housing: apartment Number of Children: 2 number of grandchildren: 0 Communication Needs: None Education Level: high school Do you need help understanding health information?: Never Pets and animals: No Sexually active: Yes Do you think of yourself as: straight/heterosexual Current gender identity: female What is your relationship status?: living with partner How often do you talk on the phone with friends or family?: once per week How often do you get together with friends or relatives?: twice per week How often do you attend latter day or hindu services?: 1-3 times per year Do you belong to any clubs or organized social groups?: no Panel score (0-1 are the most socially isolated patients): 2 What type of physical activity do you participate in: walking Duration: < 15 minutes/day Frequency: 1-2 times per week Genevieve/Sabianism: Mu-Ism Special genevieve needs: No Seatbelt use: always Helmet use: No Drive intox or ride w/intox 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 Date GA/Weeks # Preg Succ Route Wgt Sex Labor Lgth Anesth esia Location [facility] 10/22/06 No [place] 10/03/11 [place] 01/14/13 No vaginal 2267.962 g Female at home unknown preg
[2024-06-30] MEDS: Acetaminophen 500 MG TAB 1000 MG PO (10:41)
[2024-06-30] MEDS: Lidocaine 5% Patch 1 PATCH TP (10:42)
[2024-06-30] MEDS: Ketorolac 15 MG/ML VIAL IM (10:43)
--- NOTE | 2024-06-30 12:08 | DI.CT_ITS ---
Exam(s) CT THORACIC LUMBAR SPINE WO EXAM: CT THORACIC LUMBAR SPINE WO CLINICAL HISTORY: Fall, mid and lower back pain. TECHNIQUE: Imaging Protocol: Axial computed tomography images with coronal and sagittal reformatted images were created and reviewed. COMPARISON: No exams were available for comparison FINDINGS: Bones: No fractures or dislocations are seen. The alignment of the spine is normal including the cerv icothoracic junction and the thoracolumbar junction. Age-appropriate degenerative changes are seen i n the thoracic spine. Soft tissues: The soft tissues are unremarkable. No large disk herniations are identified. IMPRESSION: No acute fracture or subluxation in the thoracic or lumbar spine. RADIATION DOSE DELIVERED: 2,195.6mGy.cm Total DLP DATA REPOSITORY: All CT scans at this facility are submitted to the National Radiology Data Registry (NRDR) Dose Index Registry (DIR) with the [employer] (A[employer]). RADIATION OPTIMIZATION: All CT scans at this facility use at least one of these dose optimization te chniques: automated exposure control; mA and/or kV adjustment per patient size (includes targeted exa ms where dose is matched to clinical indication); or iterative reconstruction.
--- NOTE | 2024-06-30 12:08 | DI.CT_ITS ---
Exam(s) CT CERVICAL SPINE WO EXAM: CT CERVICAL SPINE WO CLINICAL HISTORY: fall, neck pain. TECHNIQUE: Imaging Protocol: Axial computed tomography images with coronal and sagittal reformatted images were created and reviewed COMPARISON: CT CT THORACIC LUMBAR SPINE WO from 04/09/2023 FINDINGS: The examination is limited due to patient motion artifact. Bones: No acute fracture or subluxation. Soft Tissues: Unremarkable. Lung Apices: Clear. IMPRESSION: No acute fracture or subluxation in the cervical spine. RADIATION DOSE DELIVERED: 345.75mGy.cm Total DLP 345.75mGy.cm Total DLP DATA REPOSITORY: All CT scans at this facility are submitted to the National Radiology Data Registry (NRDR) Dose Index Registry (DIR) with the [employer] (ACR). RADIATION OPTIMIZATION: All CT scans at this facility use at least one of these dose optimization te chniques: automated exposure control; mA and/or kV adjustment per patient size (includes targeted exa ms where dose is matched to clinical indication); or iterative reconstruction.
[2024-06-30] MEDS: MORPHine IR 15 MG TAB PO (12:13)
[2024-06-30 13:27] VITALS: BP 141/90; PULSE 81; RESP 16; TEMP 36.6; O2SAT 97
== END 2024-06-30 13:58 | disposition home or self-care (01) ==
PROVIDERS: Emergency Provider Emergency Medicine; PCP Nurse Practitioner Family
DX: M54.6 Pain in thoracic spine (principal); M54.2 Cervicalgia; G89.29 Other chronic pain; I10 Essential (primary) hypertension; E78.5 Hyperlipidemia, unspecified; F17.210 Nicotine dependence, cigarettes, uncomplicated
CPT/HCPCS: 96372; 99284; 72125; 72128; 72131; 99283; J1885

== ENCOUNTER 2024-08-10 02:38 | Outpatient (CLI) | payer MEDICAID, SELFPAY ==
--- NOTE | 2024-08-10 08:45 | DI.MRI_ITS ---
Exam(s) MR THORACIC SPINE WO EXAM: MR THORACIC SPINE WO CLINICAL HISTORY: 2 falls since LESI 06/22,thoracic back pain,m54.6. TECHNIQUE: Multiplanar multisequence MRI of the Thoracic spine was performed. COMPARISON: MR MR THORACIC SPINE WO from 07/15/2023 FINDINGS: Bones: The vertebral body heights are well maintained. Alignment is satisfactory. In the midthoracic spine, degenerative endplate signal changes and osteophytes are present. Cord: The thoracic cord is normal size and signal intensity. No intrinsic cord lesion is present. No mass or abnormal fluid collection is seen in the spinal canal. Discs: No disc herniation or bulge is present. Soft tissues: Normal. T1-2: No disc herniation or bulge is identified. No central spinal canal or neural foraminal stenosi s. T2-3: No disc herniation or bulge is identified. No central spinal canal or neural foraminal stenosi s. T4-5: No disc herniation or bulge is identified. No central spinal canal or neural foraminal stenosi s. T5-6: No disc herniation or bulge is identified. No central spinal canal or neural foraminal stenosis . T6-7: No disc herniation or bulge is identified. No central spinal canal or neural foraminal stenosis . T7-8: There is again seen a small central disc herniation versus osteophyte at T7-T8. No central spin al canal or neural foraminal stenosis. T8-9: No disc herniation or bulge is identified. No central spinal canal or neural foraminal stenosis . T9-10: No disc herniation or bulge is identified. No central spinal canal or neural foraminal stenosi s. T10-11:No disc herniation or bulge is identified. No central spinal canal or neural foraminal stenosi s. T11-12: No disc herniation or bulge is identified. No central spinal canal or neural foraminal stenos is. T12-L1: No disc herniations or bulges are present. No central spinal canal or neural foraminal steno sis. IMPRESSION: 1. No evidence of central spinal canal or neural foraminal stenosis. 2. Normal signal in the spinal cord. 3. No soft tissue mass or focal fluid collection is seen within the spinal canal. DATA REPOSITORY:
--- NOTE | 2024-08-10 09:20 | DI.MRI_ITS ---
Exam(s) MR LUMBAR SPINE WO EXAM: MR LUMBAR SPINE WO CLINICAL HISTORY: 2 falls since LESI,lumbar radiculopathy,nerve root impingement,m54.16. TECHNIQUE: Multiplanar multisequence MRI of the Lumbar spine was performed. COMPARISON: MR MR LUMBAR SPINE WO from 07/15/[address] THORACIC LUMBAR SPINE WO from 06/30/2024 FINDINGS: The examination is limited due to patient motion artifact. Bones: The last intervertebral disc space is designated the L5/S1 level for the numbering purpose of this examination. The vertebral body heights are well maintained. Alignment is satisfactory. Mild d egenerative endplate signal changes are present throughout the lumbar spine. Cord: The conus tip ends at the T12 level. It is of normal size and signal intensity. T12-L1: No disc herniations or bulges are present. No central spinal canal or neural foraminal stenos is. L1-2: No disc herniations or bulges are present. No central spinal canal or neural foraminal stenosis . L2-3: No disc herniations or bulges are present. No central spinal canal or neural foraminal stenosis . L3-4: No disc herniations or bulges are present. No central spinal canal or neural foraminal stenosis . L4-5: No disc herniations or bulges are present. No central spinal canal or neural foraminal stenosis . L5-S1: There is a right paracentral disc herniation with extension into the right neural foramen. Th ere does appear to be compression upon the right S1 nerve root. There is no significant central spin al canal stenosis. There is [id number] right neural foraminal stenosis. No significant left n eural foraminal stenosis. Soft tissues: The visualized SI joints and sacrum are well maintained. The paraspinal soft tissues ar e unremarkable. No focal fluid collection is seen in the soft tissues to suggest an abscess. IMPRESSION: 1. No findings of a focal fluid collection to suggest abscess. No mass or fluid collection is seen w ithin the spinal canal. 2. Right paracentral disc herniation at L5-S1 which appears to compress the right S1 nerve root and a lso cause mild to moderate right neural foraminal stenosis. DATA REPOSITORY:
== END 2024-08-10 02:58 ==
LOC: DI 02:38
PROVIDERS: PCP Nurse Practitioner Family; Visit Provider Nurse Practitioner Family
DX: M54.16 Radiculopathy, lumbar region (principal); M54.6 Pain in thoracic spine
CPT/HCPCS: 72146; 72148

== ENCOUNTER 2024-09-05 19:37 | Emergency (ER) | payer MEDICAID, SELFPAY ==
[2024-09-05 19:44] VITALS: BP 132/81; PULSE 86; RESP 16; O2SAT 99
--- NOTE | 2024-09-05 19:53 | ED.GENADUL_ITS ---
Discharge Plan Disposition Patient Disposition: Home Condition: Stable Discharge Details Clinical Impression: Acute on chronic low back pain Primary Care Provider: Nick Ritter ED Provider: Lele Sanches Home Meds and New Rx's Prescriptions: Continued fluticasone propionate [Flonase Allergy Relief] 50 mcg/actuation spray,suspension 1 spray intranasal Q12H Qty: 16 4RF Rx Instructions: administer into each nostril amitriptyline 10 mg tablet 10 mg PO QHS Qty: 90 0RF lorazepam 1 mg tablet 1 mg PO ONCE PRN (Reason: anxiety) Qty: 1 0RF Rx Instructions: Take 15-30min before MRI amlodipine 10 mg tablet 10 mg PO DAILY Qty: 90 4RF escitalopram oxalate 20 mg tablet 20 mg PO DAILY Qty: 90 4RF lidocaine 5 % adhesive patch,medicated 1 patch topical DAILY Qty: 30 0RF Rx Instructions: leave on most painful area for up to 12 hrs magnesium oxide 400 mg magnesium capsule 400 mg PO QHS Qty: 90 3RF Rx Instructions: take for at least 6 weeks naproxen 500 mg tablet 500 mg PO BID Qty: 60 3RF omeprazole 20 mg capsule,delayed release(DR/EC) 20 mg PO DAILY Qty: 90 1RF riboflavin (vitamin B2) 100 mg tablet 200 mg PO BID Qty: 360 1RF Rx Instructions: take for at least 6 weeks rizatriptan [Maxalt-TRAFFIC SIGNAL MECHANIC] 10 mg tablet,disintegrating 10 mg PO ONCE PRN (Reason: migraine headache) Qty: 9 11RF topiramate 25 mg tablet See Rx Instructions .ROUTE .COMPLEX Qty: 90 3RF Dose Instruction: TAKE ONE TABLET BY MOUTH AT BEDTIME Rx Instructions: TAKE ONE TABLET BY MOUTH AT BEDTIME methocarbamol 750 mg tablet 750 mg PO QID PRN (Reason: muscle spasm) Qty: 60 0RF acetaminophen [Acetaminophen Extra Strength] 500 mg Tablet 1,000 mg PO Q6H PRN Discharge Instructions Instructions: Low Back Pain ED Additional Instructions: You were seen in the emergency department for your acute on chronic low back pain. You need to be taking 1000 mg of Tylenol 3-4 times per day, half-way between Tylenol dosings you can take ibuprofen also 4 times per day, you could also take Aleve instead twice per day. Please apply an [id number] lidocaine patch to the area of pain in each eye for 12 hours, please apply [id number] Voltaren gel to areas of pain during the day 2-3 times. Please continue your methocarbamol, please follow-up with further physical therapy exe rcises, this will be the most curative option for you. Please follow-up with [facility] spine as you have been recommended to have surgery for this option, we did provide you with a shot of Toradol and a stronger muscle relaxant called baclofen to help you sleep tonight. Please return to the emergency setting only for emergent concerns, spinal emergency symptoms include complete urinary retention, bowel incontinence, numbness to the genitals, complete muscle weakness to one or both legs Stand Alone Forms: Physical Therapy Referral Referrals: Nick Ritter NP [Primary Care Provider] - HPI General Date/Time Provider Initiated Documentation: 09/05/24 19:53 . HPI Narrative: 44 year-old female presents to ED today by POV/ambulating with a chief complaint of acute on chronic low back pain with known lumbar radiculopathy with onset over the long-term. Quality described as R lumbar pain pain, occasional shooting pains down her R leg, no radiation to urinary retention, bowel incontinence, saddle anesthesia, states pain shoots up and down her spine. Severity is de scribed as moderate to severe. Palliating factors include takes methocarbamol but states it does not work, has seen pain clinic, had vertebral steroid injections, and was recommended for surgery, has PT but does not keep up with it. Provoking factors include nothing specific. Patient not anticoagulated. Related Data Home Medications ?Medication ?Instructions ?Recorded ?Confirmed acetaminophen 500 mg tablet 1,000 mg PO Q6H PRN 07/22/21 09/05/24 (Acetaminophen Extra Strength) fluticasone propionate 50 1 spray intranasal Q12H #16 grams 05/13/24 09/05/24 mcg/actuation nasal spray,suspension (Flonase Allergy Relief) amlodipine 10 mg tablet 10 mg PO DAILY #90 tabs 07/18/24 09/05/24 escitalopram oxalate 20 mg tablet 20 mg PO DAILY #90 tabs 07/18/24 09/05/24 lidocaine 5 % topical patch 1 patch topical DAILY #30 ea 07/18/24 09/05/24 lorazepam 1 mg tablet 1 mg PO ONCE PRN anxiety #1 tab 07/18/24 09/05/24 magnesium oxide 400 mg PO QHS #90 caps 07/18/24 09/05/24 naproxen 500 mg tablet 500 mg PO BID #60 tabs 07/18/24 09/05/24 omeprazole 20 mg capsule,delayed 20 mg PO DAILY #90 caps 07/18/24 09/05/24 release riboflavin (vitamin B2) 100 mg 200 mg (2 x 100 mg) PO BID #360 07/18/24 09/05/24 tablet tabs rizatriptan 10 mg disintegrating 10 mg PO ONCE PRN migraine 07/18/24 09/05/24 tablet (Maxalt-TRAFFIC SIGNAL MECHANIC) headache #9 tabs topiramate 25 mg tablet See Rx Instructions .Route 07/18/24 09/05/24 .COMPLEX #90 tabs amitriptyline 10 mg tablet 10 mg PO QHS #90 tabs 08/15/24 09/05/24 methocarbamol 750 mg tablet 750 mg PO QID PRN muscle spasm #60 08/24/24 09/05/24 tabs Previous Rx's ?Medication ?Instructions ?Recorded fluticasone propionate 50 1 spray intranasal Q12H #16 grams 05/13/24 mcg/actuation nasal spray,suspension (Flonase Allergy Relief) amlodipine 10 mg tablet 10 mg PO DAILY #90 tabs 07/18/24 escitalopram oxalate 20 mg tablet 20 mg PO DAILY #90 tabs 07/18/24 lidocaine 5 % topical patch 1 patch topical DAILY #30 ea 07/18/24 lorazepam 1 mg tablet 1 mg PO ONCE PRN anxiety #1 tab 07/18/24 magnesium oxide 400 mg PO QHS #90 caps 07/18/24 naproxen 500 mg tablet 500 mg PO BID #60 tabs 07/18/24 omeprazole 20 mg capsule,delayed 20 mg PO DAILY #90 caps 07/18/24 release riboflavin (vitamin B2) 100 mg 200 mg (2 x 100 mg) PO BID #360 07/18/24 tablet tabs rizatriptan 10 mg disintegrating 10 mg PO ONCE PRN migraine 07/18/24 tablet (Maxalt-TRAFFIC SIGNAL MECHANIC) headache #9 tabs topiramate 25 mg tablet See Rx Instructions .Route 07/18/24 .COMPLEX #90 tabs amitriptyline 10 mg tablet 10 mg PO QHS #90 tabs 08/15/24 methocarbamol 750 mg tablet 750 mg PO QID PRN muscle spasm #60 08/24/24 tabs Allergies Allergy/AdvReac Type Severity Reaction Status Date / Time ibuprofen Allergy Severe Anaphylaxis Verified 09/05/24 19:48 buspirone Allergy Intermediate Dizziness/L Verified 09/05/24 19:48 ighthead General Stated Complaint: Nk/Back Pain AGUSTIN: 4 Review of Systems All systems reviewed & are unremarkable except as noted in HPI and below Exam Narrative Exam Narrative: GENERAL APPEARANCE: Well-nourished, non-toxic, awake and alert, atraumatic, no acute distress. SKIN: Warm, pink, dry, intact, without rashes/lesions/ulcerations. HEAD: Normocephalic, atraumatic, normal hair distribution for gender/age. EYES: Normal conjunctiva, no exudates on lids/lashes. ENT: Nares patent, no circumoral cyanosis, no facial swelling NECK: Supple, trachea midline, painless cervical ROM. LUNGS/CHEST: Non-labored respirations, normal A/P diameter, symmetrical expansion, no chest wall deformity HEART (CV/PV): No peripheral edema, no JVD. ABDOMEN: Soft, non-distended, no guarding. MSK: Normal ROM, no swelling/deformity to bilateral UEs or LEs, moving all extremities without weakness, no cyanosis, spine midline with right lumbar paraspinal tenderness normal curvature. NEURO: Mental Status AAOx4 - alert to person, place, time, events No facial droop, no forehead involvement. Motor: No focal weakness - strength 5/5 in bilateral UEs and LEs, proximal and distal, symmetric. Sensory: sensation intact to light touch globally. Gait normal: patient ambulated without ataxia into ED room. PSYCH: euthymic, cooperative, pleasant, appropriate speech Course Vital Signs Vital signs: Vital Signs Pulse 86 09/05/24 19:44 Respiratory Rate 16 09/05/24 19:44 Blood Pressure 132/81 09/05/24 19:44 Pulse Oximetry 99 09/05/24 19:44 Pulse 86 09/05/24 19:44 Respiratory Rate 16 09/05/24 19:44 Blood Pressure 132/81 09/05/24 19:44 Blood Pressure Position Sitting 09/05/24 19:44 Pulse Oximetry 99 09/05/24 19:44 Oxygen Delivery Method Room Air 09/05/24 19:44 Oxygen Flow Rate 0 09/05/24 19:44 Medical Decision Making This dictation utilizes [id number] dictation software and may contain unedited grammatical errors. 44 year-old female presents to ED today by POV/ambulating with a chief complaint of acute on chronic low back pain with known lumbar radiculopathy with onset over the long-term. Quality described as R lumbar pain pain, occasional shooting pains down her R leg, no radiation to urinary retention, bowel incontinence, saddle anesthesia, states pain shoots up and down her spine. Severity is described as moderate to severe. Palliating factors include takes methocarbamol but states it does not work, has seen pain clinic, had vertebral steroid injections, and was recommended for surgery, has PT but does not keep up with it. Provoking factors include nothing specific. Patients' medical history: Chronic back pain, obesity, hyperlipidemia. Family and social history: Noncontributory. Pertinent exam findings / vital signs include right paraspinal lumbar tenderness, neurovascular intact bilateral lower extremities, ambulating without issue, no saddle anesthesia. Differential / pathologies of concern include chronic back pain. Diagnostic studies of: - None. Interventions of: - IM ketorolac, 1 dose of baclofen to take before bed tonight. ED Course/Assessment/Plan: 44-year-old female presents with her mother wanting to be seen for chronic back pain, her mother is also a patient for an unrelated issue. She has had back pain for many years and has a known need for lumbar fusion surgery, has not consistently followed with physical therapy has low genevieve that her therapies are working, I counseled her on the need for continued acetaminophen, daily Lidoderm patches at night, applying Voltaren gel to the areas of pain during the day, taking an NSAID and continuing with her methocarbamol, but that ultimately strengthening the lumbar and core muscles and physical therapy continuation is the best option for her, she has already seen pain clinic and had vertebral injections of steroids. I did provide her with IM Toradol and a dose of baclofen to help her sleep tonight, she states that last time they gave her morphine for back pain I stated we could not perform that therapy today from the ER setting. Findings not consistent with new trauma or fracture, spinal epidural abscess, cauda equina. Disposition of acute on chronic low back pain. Patient verbalized understanding of the plan and return to ED criteria and engaged in shared decision making. Medical Records Medical records reviewed: Yes I reviewed the patient's medical records. Quality:SDIL Health Related Social Needs: No Data to Display PFSH All Active Problems (Updated 09/05/24 @ 20:48 by MCKENZIE Hanna) Acute on chronic low back pain (Acute) Thoracic back pain (Acute) Lumbar radiculopathy (Acute) Post-nasal drip (Acute) BMI 37.0-37.9, adult (Acute) GERD (gastroesophageal reflux disease) (Chronic) Lumbar nerve root impingement (Acute) Migraine headache without aura (Acute) High risk human papillomavirus (HPV) DNA test positive (Acute) DUB (dysfunctional uterine bleeding) (Acute) Macromastia (Acute) Hypertension (Chronic) Abnormal Pap smear of cervix (Acute) Hyperlipidemia (Chronic) 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 Anxiety (Chronic) Abnormal uterine bleeding (Acute) Medical History (Updated 09/05/24 @ 20:48 by MCKENZIE Hanna) Upper back pain Lower back pain Skin lesion right knee, lateral side, raised, firm, tender Maltracking of left patella COVID-19 Elbow pain No-show for appointment Right knee pain Family History Mother Hypertension Father No problems noted. Sister No problems noted. Brother No problems noted. Son No problems noted. Son No problems noted. Daughter No problems noted. Maternal Grandmother , 85 Heart disease Hypertension Social History Smoking/Tobacco Use Status: Current every day Tobacco Type: cigarettes Tobacco: How many years used: 20 Quit status: has quit before Second Hand Exposure: No Smoking risk assessment performed?: Yes Alcohol Intake: current Alcohol Intake frequency: holidays/special occasions only Alcohol type: wine Details: 6 or more drinks monthly or less Drug use: Never Substance use type: does not use Adopted: No Household members: significant other and children Housing: apartment Number of Children: 2 number of grandchildren: 0 Communication Needs: None Education Level: high school Do you need help understanding health information?: Never Pets and animals: No Sexually active: Yes Do you think of yourself as: straight/heterosexual Current gender identity: female What is your relationship status?: living with partner How often do you talk on the phone with friends or family?: once per week How often do you get together with friends or relatives?: twice per week How often do you attend confucianist or bahai services?: 1-3 times per year Do you belong to any clubs or organized social groups?: no Panel score (0-1 are the most socially isolated patients): 2 What type of physical activity do you participate in: walking Duration: < 15 minutes/day Frequency: 1-2 times per week Genevieve/Latter-Day: Shinto Special genevieve needs: No Seatbelt use: always Helmet use: No Drive intox or ride w/intox xm1 tank driver: No Firearms in home: No Do you feel safe at home: Yes Do you feel safe in your relationship?: Yes Would you like helpful sources: No History History 3 Para 3 Hx # Term Pregnancies Multiple births Hx # Pregnancies Ectopic pregnancies AB induced Hx Number of Living Children 3 AB spontaneous Past Pregnancies Del. Date GA/Weeks # Preg Succ Route Wgt Sex Labor Lgth Anesth esia Location [facility] Compl 10/22/06 No Male [place] 10/03/11 [place] 01/14/13 No vaginal 2267.962 g Female at home unknown preg
[2024-09-05] MEDS: Ketorolac 30 MG/ML VIAL IM (21:06)
[2024-09-05] MEDS: Baclofen 10 MG TAB PO (21:07)
[2024-09-05] MEDS: Acetaminophen 500 MG TAB 1000 MG PO (21:07)
[2024-09-05] MEDS: Lidocaine 5% Patch 1 PATCH TP (21:07)
== END 2024-09-05 21:17 | disposition home or self-care (01) ==
PROVIDERS: Emergency Provider Physician Assistant; PCP Nurse Practitioner Family
DX: M54.50 Low back pain, unspecified (principal); G89.29 Other chronic pain
CPT/HCPCS: 99283; 99284; 96372; J1885

== ENCOUNTER 2024-11-01 10:35 | Emergency (ER) | payer MEDICAID, SELFPAY ==
[2024-11-01 10:55] VITALS: BP 130/76; PULSE 60; RESP 20; TEMP 36.7; O2SAT 98
--- NOTE | 2024-11-01 11:38 | W.ED.GENAD ---
Discharge Plan Disposition Patient Disposition: Home Condition: Stable Discharge Details Clinical Impression: Chronic lower back pain Primary Care Provider: Nick Ritter ED Provider: Lila Blood Home Meds and New Rx's Prescriptions: New cyclobenzaprine 10 mg tablet 10 mg PO TID PRNQty: 5 0RF No Action fluticasone propionate [Flonase Allergy Relief] 50 mcg/actuation spray,suspension 1 spray intranasal Q12H Qty: 16 4RF Rx Instructions: administer into each nostril amitriptyline 10 mg tablet 10 mg PO QHS Qty: 90 0RF lorazepam 1 mg tablet 1 mg PO ONCE PRN (Reason: anxiety) Qty: 1 0RF Rx Instructions: Take 15-30min before MRI amlodipine 10 mg tablet 10 mg PO DAILY Qty: 90 4RF escitalopram oxalate 20 mg tablet 20 mg PO DAILY Qty: 90 4RF lidocaine 5 % adhesive patch,medicated 1 patch topical DAILY Qty: 30 0RF Rx Instructions: leave on most painful area for up to 12 hrs magnesium oxide 400 mg magnesium capsule 400 mg PO QHS Qty: 90 3RF Rx Instructions: take for at least 6 weeks naproxen 500 mg tablet 500 mg PO BID Qty: 60 3RF omeprazole 20 mg capsule,delayed release(DR/EC) 20 mg PO DAILY Qty: 90 1RF riboflavin (vitamin B2) 100 mg tablet 200 mg PO BID Qty: 360 1RF Rx Instructions: take for at least 6 weeks rizatriptan [Maxalt-MUSIC BOX MECHANIC] 10 mg tablet,disintegrating 10 mg PO ONCE PRN (Reason: migraine headache) Qty: 9 11RF topiramate 25 mg tablet See Rx Instructions .ROUTE .COMPLEX Qty: 90 3RF Dose Instruction: TAKE ONE TABLET BY MOUTH AT BEDTIME Rx Instructions: TAKE ONE TABLET BY MOUTH AT BEDTIME methocarbamol 750 mg tablet 750 mg PO QID PRN (Reason: muscle spasm) Qty: 60 0RF acetaminophen [Acetaminophen Extra Strength] 500 mg Tablet 1,000 mg PO Q6H PRN Discharge Instructions Instructions: Low Back Pain ED Additional Instructions: You were seen in the emergency department today for evaluation of ongoing low back pain. In our department you had a full physical examination performed, and received a dose of Toradol. I have sent a short course of muscle relaxing medications to your pharmacy. I did reach out to the pain clinic, you can schedule a repeat follow-up exam with them, but all medications need to be coming from your primary care provider. I did reach out to the your provider to ensure that she is aware of your ER visit today. Please continue to follow-up with Margarita to discuss her surgical options. Please continue to take your Tylenol and naproxen and utilize the [id number] Lidoderm patches. Thank you for allowing us to be part of your care. HPI General Mode of arrival: ambulatory. Date/Time Provider Initiated Documentation: 11/01/24 10:45. Limitations to Documentation: no limitations. Information obtained by: patient and old records reviewed. HPI Narrative: This is a 44-year-old female patient with a past medical history significant for lumbar disc disease with chronic low back pain, presenting for evaluation of pain management. The patient reports that she would like a shot of Toradol for her pain. She has been trying to manage her pain with Tylenol, Lidoderm patches, and muscle relaxers. She reports that she was initially seen by pain management, has not been going to her follow-up appointments, cannot identify a barrier preventing her from these visits. She attempted to contact her primary care provider and states she was unable to do so. She states that she has not had any change in her pain, has not sustained new injury, and is not experiencing numbness, weakness, or tingling. She has not had any urine or bowel changes. Has been using naproxen which she tolerates, and is scheduled with [facility] [place] of [place] intervention. Related Data Home Medications ?Medication ?Instructions ?Recorded ?Confirmed acetaminophen 500 mg tablet 1,000 mg PO Q6H PRN 07/22/21 11/01/24 (Acetaminophen Extra Strength) fluticasone propionate 50 1 spray intranasal Q12H #16 grams 05/13/24 11/01/24 mcg/actuation nasal spray,suspension (Flonase Allergy Relief) amlodipine 10 mg tablet 10 mg PO DAILY #90 tabs 07/18/24 11/01/24 escitalopram oxalate 20 mg tablet 20 mg PO DAILY #90 tabs 07/18/24 11/01/24 lidocaine 5 % topical patch 1 patch topical DAILY #30 ea 07/18/24 11/01/24 lorazepam 1 mg tablet 1 mg PO ONCE PRN anxiety #1 tab 07/18/24 11/01/24 magnesium oxide 400 mg PO QHS #90 caps 07/18/24 11/01/24 naproxen 500 mg tablet 500 mg PO BID #60 tabs 07/18/24 11/01/24 omeprazole 20 mg capsule,delayed 20 mg PO DAILY #90 caps 07/18/24 11/01/24 release riboflavin (vitamin B2) 100 mg 200 mg (2 x 100 mg) PO BID #360 07/18/24 11/01/24 tablet tabs rizatriptan 10 mg disintegrating 10 mg PO ONCE PRN migraine 07/18/24 11/01/24 tablet (Maxalt-MUSIC BOX MECHANIC) headache #9 tabs topiramate 25 mg tablet See Rx Instructions .Route 07/18/24 11/01/24 .COMPLEX #90 tabs amitriptyline 10 mg tablet 10 mg PO QHS #90 tabs 08/15/24 11/01/24 methocarbamol 750 mg tablet 750 mg PO QID PRN muscle spasm #60 08/24/24 11/01/24 tabs cyclobenzaprine 10 mg tablet 10 mg PO TID PRN #5 tabs 11/01/24 Previous Rx's ?Medication ?Instructions ?Recorded fluticasone propionate 50 1 spray intranasal Q12H #16 grams 05/13/24 mcg/actuation nasal spray,suspension (Flonase Allergy Relief) amlodipine 10 mg tablet 10 mg PO DAILY #90 tabs 07/18/24 escitalopram oxalate 20 mg tablet 20 mg PO DAILY #90 tabs 07/18/24 lidocaine 5 % topical patch 1 patch topical DAILY #30 ea 07/18/24 lorazepam 1 mg tablet 1 mg PO ONCE PRN anxiety #1 tab 07/18/24 magnesium oxide 400 mg PO QHS #90 caps 07/18/24 naproxen 500 mg tablet 500 mg PO BID #60 tabs 07/18/24 omeprazole 20 mg capsule,delayed 20 mg PO DAILY #90 caps 07/18/24 release riboflavin (vitamin B2) 100 mg 200 mg (2 x 100 mg) PO BID #360 07/18/24 tablet tabs rizatriptan 10 mg disintegrating 10 mg PO ONCE PRN migraine 07/18/24 tablet (Maxalt-MUSIC BOX MECHANIC) headache #9 tabs topiramate 25 mg tablet See Rx Instructions .Route 07/18/24 .COMPLEX #90 tabs amitriptyline 10 mg tablet 10 mg PO QHS #90 tabs 08/15/24 methocarbamol 750 mg tablet 750 mg PO QID PRN muscle spasm #60 08/24/24 tabs cyclobenzaprine 10 mg tablet 10 mg PO TID PRN #5 tabs 11/01/24 Allergies Allergy/AdvReac Type Severity Reaction Status Date / Time ibuprofen Allergy Severe Anaphylaxis Verified 11/01/24 10:58 buspirone Allergy Intermediate Dizziness/L Verified 11/01/24 10:58 ighthead General Stated Complaint: Nk/Back Pain AGUSTIN: 5 Exam Narrative Exam Narrative: Gen: Awake and alert, in no apparent distress HEENT: Non-icteric sclera Neck: Supple Lungs: No apparent respiratory distress, normal respiratory effort. CV: Appears well perfused, heart with regular rate and rhythm Abdomen: Non-distended MSK: Moves 4 extremities without apparent limitation in ROM. The patient's lower back is tender to palpation Skin: Visualized skin without rashes, cyanosis. Neuro: Normal Gait, no obvious focal deficits or facial asymmetry. Symmetrical strength and sensation in the legs, speaks in full, clear sentences. Psych: Appropriate for situation. Course Vital Signs Vital signs: Vital Signs Temperature 36.7 C 11/01/24 10:55 Pulse 60 11/01/24 10:55 Respiratory Rate 20 11/01/24 10:55 Blood Pressure 130/76 11/01/24 10:55 Pulse Oximetry 98 11/01/24 10:55 Temperature 36.7 C 11/01/24 10:55 Temperature Source Oral 11/01/24 10:55 Pulse 60 11/01/24 10:55 Respiratory Rate 20 11/01/24 10:55 Blood Pressure 130/76 11/01/24 10:55 Blood Pressure Position Sitting 11/01/24 10:55 Pulse Oximetry 98 11/01/24 10:55 Oxygen Delivery Method Room Air 11/01/24 10:55 Oxygen Flow Rate 0 11/01/24 10:55 Pain Level 8 11/01/24 10:55 Medical Decision Making This is a 44-year-old female patient presenting for evaluation of chronic lower back pain requesting medication for management of pain. My differential includes but is not limited to lumbar disc disease, lumbar radiculopathy, certainly considered sprain/strain. No trauma to suggest fracture or dislocation, and the patient is without red flag symptoms such as neurodeficit, bowel or bladder dysfunction, or fever to increase my concern for spinal cord compression syndrome such as cauda equina, metastases, spinal epidural abscess or hematoma. I think it is very reasonable to provide this patient with a dose of Toradol for her pain, I did reach out to both her primary care provider and the pain clinic, and discussed her case with both of them. The patient will require a repeat evaluation by her primary care before she can be readmitted to the pain clinic given her no call no-shows, and her primary care provider is amenable to our sending her a short course of muscle relaxers and will continue to follow her for her chronic pain. I did emphasize to this patient that pain medication especially controlled substances needs to come from a central primary care provider. 5 pills of Flexeril was sent to her pharmacy. At this time, the patient has had a full medical evaluation and is safe for discharge to home. They are hemodynamically stable, ambulatory, and tolerating PO. They are understanding of the follow-up plan and return precautions. They left our facility without incident. Lila Blood MD [facility] All Active Problems (Updated 11/01/24 @ 12:07 by Lila Blood MD) Chronic lower back pain (Chronic) Thoracic back pain (Acute) Lumbar radiculopathy (Acute) Post-nasal drip (Acute) BMI 37.0-37.9, adult (Acute) GERD (gastroesophageal reflux disease) (Chronic) Lumbar nerve root impingement (Acute) Migraine headache without aura (Acute) High risk human papillomavirus (HPV) DNA test positive (Acute) DUB (dysfunctional uterine bleeding) (Acute) Macromastia (Acute) Hypertension (Chronic) Abnormal Pap smear of cervix (Acute) Hyperlipidemia (Chronic) 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 Anxiety (Chronic) Abnormal uterine bleeding (Acute) Medical History (Updated 11/01/24 @ 12:07 by Lila Blood MD) Upper back pain Lower back pain Skin lesion right knee, lateral side, raised, firm, tender Maltracking of left patella COVID-19 Elbow pain No-show for appointment Right knee pain Family History Mother Hypertension Father No problems noted. Sister No problems noted. Brother No problems noted. Son No problems noted. Son No problems noted. Daughter No problems noted. Maternal Grandmother , 85 Heart disease Hypertension Social History Smoking/Tobacco Use Status: Current every day Tobacco Type: cigarettes Tobacco: How many years used: 20 Quit status: has quit before Second Hand Exposure: No Smoking risk assessment performed?: Yes Alcohol Intake: current Alcohol Intake frequency: holidays/special occasions only Alcohol type: wine Details: 6 or more drinks monthly or less Drug use: Never Substance use type: does not use Adopted: No Household members: significant other and children Housing: apartment Number of Children: 2 number of grandchildren: 0 Communication Needs: None Education Level: high school Do you need help understanding health information?: Never Pets and animals: No Sexually active: Yes Do you think of yourself as: straight/heterosexual Current gender identity: female What is your relationship status?: living with partner How often do you talk on the phone with friends or family?: once per week How often do you get together with friends or relatives?: twice per week How often do you attend voodoo or gnosticism services?: 1-3 times per year Do you belong to any clubs or organized social groups?: no Panel score (0-1 are the most socially isolated patients): 2 What type of physical activity do you participate in: walking Duration: < 15 minutes/day Frequency: 1-2 times per week Genevieve/Oriental Orthodox: Buddhism Special genevieve needs: No Seatbelt use: always Helmet use: No Drive intox or ride w/intox independent driver: No Firearms in home: No Do you feel safe at home: Yes Do you feel safe in your relationship?: Yes Would you like helpful sources: No History History 3 Para 3 Hx # Term Pregnancies Multiple births Hx # Pregnancies Ectopic pregnancies AB induced Hx Number of Living Children 3 AB spontaneous Past Pregnancies Del. Date GA/Weeks # Preg Succ Route Wgt Sex Labor Lgth Anesthesia Location [facility] 10/22/06 No Male [place] 10/03/11 [place] 01/14/13 No vaginal 2267.962 g Female at home unknown preg
[2024-11-01] MEDS: Ketorolac 15 MG/ML VIAL IM (11:42)
== END 2024-11-01 12:23 | disposition home or self-care (01) ==
PROVIDERS: Emergency Provider Emergency Medicine; PCP Nurse Practitioner Family
DX: M54.50 Low back pain, unspecified (principal); G89.29 Other chronic pain; E78.5 Hyperlipidemia, unspecified; F17.210 Nicotine dependence, cigarettes, uncomplicated
CPT/HCPCS: 96372; 99283; J1885

== ENCOUNTER 2024-11-10 21:17 | Emergency (ER) | payer MEDICAID, SELFPAY ==
[2024-11-10 21:15] VITALS: BP 123/85; PULSE 78; RESP 18; TEMP 36.7; O2SAT 98
[2024-11-10] MEDS: Lidocaine 5% Patch 1 PATCH TP (21:46)
[2024-11-10] MEDS: Acetaminophen 500 MG TAB 1000 MG PO (21:47)
[2024-11-10] MEDS: predniSONE 20 MG TAB 40 MG PO (21:47)
[2024-11-10] MEDS: diazePAM 5 MG TAB PO (21:47)
[2024-11-10] MEDS: Ketorolac 60 MG/2 ML VIAL IM (21:47)
--- NOTE | 2024-11-10 22:03 | W.ED.GENAD ---
Discharge Plan Disposition Patient Disposition: Home Condition: Stable Discharge Details Clinical Impression: Thoracic back pain, Lumbar radiculopathy Clinical Impression: (Ruled Out): DUB (dysfunctional uterine bleeding) Primary Care Provider: Nick Ritter ED Provider: Lele Sanches Home Meds and New Rx's Prescriptions: Continued amitriptyline 10 mg tablet 20 mg PO QHS Qty: 180 4RF amlodipine 10 mg tablet 10 mg PO DAILY Qty: 90 4RF escitalopram oxalate 20 mg tablet 20 mg PO DAILY Qty: 90 4RF fluticasone propionate [Flonase Allergy Relief] 50 mcg/actuation spray,suspension 1 spray intranasal Q12H Qty: 16 4RF Rx Instructions: administer into each nostril lidocaine 5 % adhesive patch,medicated 1 patch topical DAILY Qty: 30 0RF Rx Instructions: leave on most painful area for up to 12 hrs methocarbamol 750 mg tablet 750 mg PO QID PRN (Reason: muscle spasm) Qty: 60 0RF magnesium oxide 400 mg magnesium capsule 400 mg PO QHS Qty: 90 3RF Rx Instructions: take for at least 6 weeks naproxen 500 mg tablet 500 mg PO BID Qty: 60 3RF omeprazole 20 mg capsule,delayed release(DR/EC) 20 mg PO DAILY Qty: 90 1RF riboflavin (vitamin B2) 100 mg tablet 200 mg PO BID Qty: 360 1RF Rx Instructions: take for at least 6 weeks rizatriptan [Maxalt-LINE PERSON] 10 mg tablet,disintegrating 10 mg PO ONCE PRN (Reason: migraine headache) Qty: 9 11RF acetaminophen [Acetaminophen Extra Strength] 500 mg Tablet 1,000 mg PO Q6H PRN Discharge Instructions Instructions: Managing acute pain at home, Low Back Pain ED Additional Instructions: You were seen in the emergency department for your acute on chronic back pain and spasm. Need to be taking 1000 mg of Tylenol every 6 hours like clockwork, take Aleve in the morning and evening, take your methocarbamol up to 4 times per day and get [id number] lidocaine patches, apply gentle heat to the areas of pain and have somebody apply gentle pressure to the muscles that are in spasm until they relax. Please follow-up with your spine appointment in July, please return to the emergency department for any profound weakness of the legs, numbness to the genitalia, urinary retention or bowel incontinence. Referrals: Nick Ritter NP [Primary Care Provider, Medicine] Discharge Data Discharge Date/Time-TO BE ENTERED AT DEPARTURE: 11/10/24 22:43 HPI General Date/Time Provider Initiated Documentation: 11/10/24 21:17. HPI Narrative: 44 year-old female presents to ED today by POV/ambulating with a chief complaint of lower back pain, chronically- seen at [facility] yesterday and given toradol, took methocarbamol this morning. Quality described as sharp pain with certain movements, known disc problems, no radiation to urinary retention bowel incontinence, saddle anesthesia fever. Severity is described as severe. Palliating factors include back pain meds not helping. Provoking factors include nothing specific. Patient not anticoagulated. Related Data Home Medications ?Medication ?Instructions ?Recorded ?Confirmed acetaminophen 500 mg tablet 1,000 mg PO Q6H PRN 07/22/21 11/11/24 (Acetaminophen Extra Strength) amitriptyline 10 mg tablet 20 mg (2 x 10 mg) PO QHS #180 tabs 11/09/24 11/10/24 amlodipine 10 mg tablet 10 mg PO DAILY #90 tabs 11/09/24 11/10/24 escitalopram oxalate 20 mg tablet 20 mg PO DAILY #90 tabs 11/09/24 11/10/24 fluticasone propionate 50 1 spray intranasal Q12H #16 grams 11/09/24 11/10/24 mcg/actuation nasal spray,suspension (Flonase Allergy Relief) lidocaine 5 % topical patch 1 patch topical DAILY #30 ea 11/09/24 11/10/24 magnesium oxide 400 mg PO QHS #90 caps 11/09/24 11/10/24 methocarbamol 750 mg tablet 750 mg PO QID PRN muscle spasm #60 11/09/24 11/10/24 tabs naproxen 500 mg tablet 500 mg PO BID #60 tabs 11/09/24 11/10/24 omeprazole 20 mg capsule,delayed 20 mg PO DAILY #90 caps 11/09/24 11/10/24 release riboflavin (vitamin B2) 100 mg 200 mg (2 x 100 mg) PO BID #360 11/09/24 11/10/24 tablet tabs rizatriptan 10 mg disintegrating 10 mg PO ONCE PRN migraine 11/09/24 11/10/24 tablet (Maxalt-LINE PERSON) headache #9 tabs Previous Rx's ?Medication ?Instructions ?Recorded amitriptyline 10 mg tablet 20 mg (2 x 10 mg) PO QHS #180 tabs 11/09/24 amlodipine 10 mg tablet 10 mg PO DAILY #90 tabs 11/09/24 escitalopram oxalate 20 mg tablet 20 mg PO DAILY #90 tabs 11/09/24 fluticasone propionate 50 1 spray intranasal Q12H #16 grams 11/09/24 mcg/actuation nasal spray,suspension (Flonase Allergy Relief) lidocaine 5 % topical patch 1 patch topical DAILY #30 ea 11/09/24 magnesium oxide 400 mg PO QHS #90 caps 11/09/24 methocarbamol 750 mg tablet 750 mg PO QID PRN muscle spasm #60 11/09/24 tabs naproxen 500 mg tablet 500 mg PO BID #60 tabs 11/09/24 omeprazole 20 mg capsule,delayed 20 mg PO DAILY #90 caps 11/09/24 release riboflavin (vitamin B2) 100 mg 200 mg (2 x 100 mg) PO BID #360 11/09/24 tablet tabs rizatriptan 10 mg disintegrating 10 mg PO ONCE PRN migraine 11/09/24 tablet (Maxalt-LINE PERSON) headache #9 tabs Allergies Allergy/AdvReac Type Severity Reaction Status Date / Time ibuprofen Allergy Severe Anaphylaxis Verified 11/10/24 21:18 buspirone Allergy Intermediate Dizziness/L Verified 11/10/24 21:18 ighthead General Stated Complaint: Nk/Back Pain AGUSTIN: 3 Review of Systems All systems reviewed & are unremarkable except as noted in HPI and below Exam Narrative Exam Narrative: GENERAL APPEARANCE: Well-nourished, non-toxic, awake and alert, atraumatic, no acute distress. SKIN: Warm, pink, dry, intact, without rashes/lesions/ulcerations. HEAD: Normocephalic, atraumatic, normal hair distribution for gender/age. EYES: Normal conjunctiva, no exudates on lids/lashes. ENT: Nares patent, no circumoral cyanosis, no facial swelling NECK: Supple, trachea midline, painless cervical ROM. LUNGS/CHEST: Non-labored respirations, normal A/P diameter, symmetrical expansion, no chest wall deformity HEART (CV/PV): No peripheral edema, no JVD. ABDOMEN: Soft, non-distended, no guarding. MSK: Normal ROM, no swelling/deformity to bilateral UEs or LEs, moving all extremities without weakness, no cyanosis, spine midline without tenderness-palpable tension and tenderness in the left upper lumbar/lower thoracic paraspinal muscles most focal, no saddle anesthesia, normal curvature. NEURO: Mental Status AAOx4 - alert to person, place, time, events No facial droop, no forehead involvement. Motor: No focal weakness - strength 5/5 in bilateral UEs and LEs, proximal and distal, symmetric. Sensory: sensation intact to light touch globally. Gait normal: patient ambulated without ataxia into ED room. PSYCH: euthymic, cooperative, pleasant, appropriate speech Course Vital Signs Vital signs: Vital Signs Temperature 36.7 C 11/10/24 21:15 Pulse 78 11/10/24 21:15 Respiratory Rate 18 11/10/24 21:15 Blood Pressure 123/85 11/10/24 21:15 Pulse Oximetry 98 11/10/24 21:15 Temperature 36.7 C 11/10/24 21:15 Temperature Source Oral 11/10/24 21:15 Pulse 78 11/10/24 21:15 Respiratory Rate 18 11/10/24 21:15 Blood Pressure 123/85 11/10/24 21:15 Blood Pressure Position Sitting 11/10/24 21:15 Pulse Oximetry 98 11/10/24 21:15 Oxygen Delivery Method Room Air 11/10/24 21:15 Oxygen Flow Rate 0 11/10/24 21:15 Medical Decision Making This dictation utilizes [id number] dictation software and may contain unedited grammatical errors. 44 year-old female presents to ED today by POV/ambulating with a chief complaint of lower back pain, chronically- seen at [facility] yesterday and given toradol, took methocarbamol this morning. Quality described as sharp pain with certain movements, known disc problems, no radiation to urinary retention bowel incontinence, saddle anesthesia fever. Severity is described as severe. Palliating factors include back pain meds not helping. Provoking factors include nothing specific. Patients' medical history: Chronic lower back pain, obesity, hypertension. Family and social history: noncontributory. Pertinent exam findings / vital signs include diffuse paraspinal tenderness in the back, no saddle anesthesia, able to use lower extremities with normal range of motion and strength only slight limited pain, nontoxic and afebrile. Differential / pathologies of concern include chronic back pain, not cauda equina. Diagnostic studies of: -None. Interventions of: -1g PO Tylenol, 60mg IM toradol, lidoderm patch, prednisone 40mg PO, diazepam 5mg PO. ED Course/Assessment/Plan: 44-year-old female presents with acute on chronic back pain, requesting pain control, was given Tylenol, Toradol IM Lidoderm patch prednisone and diazepam for muscle relaxation, recommend she follow-up with physical therapy visits and see her primary care provider for any long-term medications due to her chronic ongoing back pain issues. Seek a referral to orthospine, return for any bowel or urinary changes with saddle anesthesia or severe increase in back pain with fever. Findings not consistent with cauda equina, spinal epidural abscess, myelopathy. Disposition of Thoracic Back Pain, Lumbar Radiculopathy. Patient verbalized understanding of the plan and return to ED criteria and engaged in shared decision making. Medical Records Medical records reviewed: Yes I reviewed the patient's medical records. PFSH All Active Problems (Updated 11/10/24 @ 22:21 by MCKENZIE Hanna) Chronic lower back pain (Chronic) Thoracic back pain (Acute) Lumbar radiculopathy (Acute) Post-nasal drip (Acute) BMI 37.0-37.9, adult (Acute) GERD (gastroesophageal reflux disease) (Chronic) Lumbar nerve root impingement (Acute) Migraine headache without aura (Acute) High risk human papillomavirus (HPV) DNA test positive (Acute) DUB (dysfunctional uterine bleeding) (Acute) Macromastia (Acute) Hypertension (Chronic) Abnormal Pap smear of cervix (Acute) Hyperlipidemia (Chronic) 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 Anxiety (Chronic) Abnormal uterine bleeding (Acute) Medical History (Updated 11/10/24 @ 22:21 by MCKENZIE Hanna) Upper back pain Lower back pain Skin lesion right knee, lateral side, raised, firm, tender Maltracking of left patella COVID-19 Elbow pain No-show for appointment Right knee pain Family History Mother Hypertension Father No problems noted. Sister No problems noted. Brother No problems noted. Son No problems noted. Son No problems noted. Daughter No problems noted. Maternal Grandmother , 85 Heart disease Hypertension Social History Smoking/Tobacco Use Status: Current every day Tobacco Type: cigarettes Tobacco: How many years used: 20 Quit status: has quit before Second Hand Exposure: No Smoking risk assessment performed?: Yes Alcohol Intake: current Alcohol Intake frequency: holidays/special occasions only Alcohol type: wine Details: 6 or more drinks monthly or less Drug use: Never Substance use type: does not use Adopted: No Household members: significant other and children Housing: apartment Number of Children: 2 number of grandchildren: 0 Communication Needs: None Education Level: high school Do you need help understanding health information?: Never Pets and animals: No Sexually active: Yes Do you think of yourself as: straight/heterosexual Current gender identity: female What is your relationship status?: living with partner How often do you talk on the phone with friends or family?: once per week How often do you get together with friends or relatives?: twice per week How often do you attend advent or mandaeism services?: 1-3 times per year Do you belong to any clubs or organized social groups?: no Panel score (0-1 are the most socially isolated patients): 2 What type of physical activity do you participate in: walking Duration: < 15 minutes/day Frequency: 1-2 times per week Genevieve/Confucianist: Hoahaoism Special genevieve needs: No Seatbelt use: always Helmet use: No Drive intox or ride w/intox special education bus driver: No Firearms in home: No Do you feel safe at home: Yes Do you feel safe in your relationship?: Yes Would you like helpful sources: No History History 3 Para 3 Hx # Term Pregnancies Multiple births Hx # Pregnancies Ectopic pregnancies AB induced Hx Number of Living Children 3 AB spontaneous Past Pregnancies Del. Date GA/Weeks # Preg Succ Route Wgt Sex Labor Lgth Anesthesia Location [facility] 10/22/06 No Male [place] 10/03/11 Male [place] 01/14/13 No vaginal 2267.962 g Female at home unknown preg
[2024-11-10 22:42] VITALS: PULSE 80; RESP 18; O2SAT 98
== END 2024-11-10 22:43 | disposition home or self-care (01) ==
PROVIDERS: Emergency Provider Physician Assistant; PCP Nurse Practitioner Family
DX: M54.6 Pain in thoracic spine (principal); M54.16 Radiculopathy, lumbar region; I10 Essential (primary) hypertension; F17.210 Nicotine dependence, cigarettes, uncomplicated
CPT/HCPCS: 96372; 99284; 99283; J1885; J7512

== ENCOUNTER 2024-11-17 14:15 | Emergency (ER) | payer MEDICAID, SELFPAY ==
[2024-11-17 14:16] VITALS: BP 159/77; PULSE 98; RESP 18; TEMP 36.7; O2SAT 98
--- NOTE | 2024-11-17 14:33 | ED.GENADUL_ITS ---
Discharge Plan Disposition Patient Disposition: Home Condition: Improving Discharge Details Clinical Impression: Back pain Primary Care Provider: Nick Ritter ED Provider: Willie Amin Home Meds and New Rx's Prescriptions: New cyclobenzaprine 5 mg tablet 5 mg PO QHS PRN (Reason: muscle spasm) Qty: 7 0RF lidocaine 5 % adhesive patch,medicated 1 patch topical Q24H Qty: 15 0RF Rx Instructions: leave on most painful area for up to 12 hrs No Action amitriptyline 10 mg tablet 20 mg PO QHS Qty: 180 4RF amlodipine 10 mg tablet 10 mg PO DAILY Qty: 90 4RF escitalopram oxalate 20 mg tablet 20 mg PO DAILY Qty: 90 4RF fluticasone propionate [Flonase Allergy Relief] 50 mcg/actuation spray,suspension 1 spray intranasal Q12H Qty: 16 4RF Rx Instructions: administer into each nostril lidocaine 5 % adhesive patch,medicated 1 patch topical DAILY Qty: 30 0RF Rx Instructions: leave on most painful area for up to 12 hrs methocarbamol 750 mg tablet 750 mg PO QID PRN (Reason: muscle spasm) Qty: 60 0RF magnesium oxide 400 mg magnesium capsule 400 mg PO QHS Qty: 90 3RF Rx Instructions: take for at least 6 weeks naproxen 500 mg tablet 500 mg PO BID Qty: 60 3RF omeprazole 20 mg capsule,delayed release(DR/EC) 20 mg PO DAILY Qty: 90 1RF riboflavin (vitamin B2) 100 mg tablet 200 mg PO BID Qty: 360 1RF Rx Instructions: take for at least 6 weeks rizatriptan [Maxalt-BIOFUELS PRODUCTION TECHNICIAN] 10 mg tablet,disintegrating 10 mg PO ONCE PRN (Reason: migraine headache) Qty: 9 11RF acetaminophen [Acetaminophen Extra Strength] 500 mg Tablet 1,000 mg PO Q6H PRN Discharge Instructions Instructions: Low Back Pain ED Additional Instructions: Please follow-up with primary care physician. Please return to the emergency department for any worsening symptoms HPI General Date/Time Provider Initiated Documentation: 11/17/24 14:31 . HPI Narrative: 44-year-old female history of chronic lower back pain presents with atraumatic lower back pain today lumbar nature paraspinal, denies bowel or bladder issues denies weakness or numbness in lower extremities, no fevers chills or injuries recently. Tried a Lidoderm patch and meloxicam earlier without relief. Related Data Home Medications ?Medication ?Instructions ?Recorded ?Confirmed acetaminophen 500 mg tablet 1,000 mg PO Q6H PRN 11/17/24 (Acetaminophen Extra Strength) amitriptyline 10 mg tablet 20 mg (2 x 10 mg) PO QHS #1 80 tabs 11/09/24 11/17/24 amlodipine 10 mg tablet 10 mg PO DAILY #90 tabs 10/1911/17/24 escitalopram oxalate 20 mg tablet 20 mg PO DAILY #90 t abs 11/09/24 11/17/24 fluticasone propionate 50 1 spray intranasal Q12H #16 grams 11/09/24 11/17/24 mcg/actuation nasal spray,suspension (Flonase Allergy Relief) lidocaine 5 % topical patch 1 patch topical DAILY #30 ea 11/09/24 11/17/24 magnesium oxide 400 mg PO QHS #90 caps 11/0911/17/24 methocarbamol 750 mg tablet 750 mg PO QID PRN muscle s pasm #60 11/09/24 11/17/24 tabs naproxen 500 mg tablet 500 mg PO BID #60 tabs 11/0911/17/24 omeprazole 20 mg capsule,delayed 20 mg PO DAILY #90 ca ps 11/09/24 11/17/24 release riboflavin (vitamin B2) 100 mg 200 mg (2 x 100 mg) PO BID #360 11/09/24 11/17/24 tablet tabs rizatriptan 10 mg disintegrating 10 mg PO ONCE PRN harrison grzegorz 11/09/24 11/17/24 tablet (Maxalt-BIOFUELS PRODUCTION TECHNICIAN) headache #9 tabs cyclobenzaprine 5 mg tablet 5 mg PO QHS PRN muscle spa sm #7 11/17/24 tabs lidocaine 5 % topical patch 1 patch topical Q24H #15 e a 11/17/24 Previous Rx's ?Medication ?Instructions ?Recorded amitriptyline 10 mg tablet 20 mg (2 x 10 mg) PO QHS #1 80 tabs 11/09/24 amlodipine 10 mg tablet 10 mg PO DAILY #90 tabs 10/19 07/12 escitalopram oxalate 20 mg tablet 20 mg PO DAILY #90 t abs 11/09/24 fluticasone propionate 50 1 spray intranasal Q12H #16 grams 11/09/24 mcg/actuation nasal spray,suspension (Flonase Allergy Relief) lidocaine 5 % topical patch 1 patch topical DAILY #30 ea 11/09/24 magnesium oxide 400 mg PO QHS #90 caps 11/09 methocarbamol 750 mg tablet 750 mg PO QID PRN muscle s pasm #60 11/09/24 tabs naproxen 500 mg tablet 500 mg PO BID #60 tabs 11/09 omeprazole 20 mg capsule,delayed 20 mg PO DAILY #90 ca ps 11/09/24 release riboflavin (vitamin B2) 100 mg 200 mg (2 x 100 mg) PO BID #360 11/09/24 tablet tabs rizatriptan 10 mg disintegrating 10 mg PO ONCE PRN harrison grzegorz 11/09/24 tablet (Maxalt-BIOFUELS PRODUCTION TECHNICIAN) headache #9 tabs cyclobenzaprine 5 mg tablet 5 mg PO QHS PRN muscle spa sm #7 11/17/24 tabs lidocaine 5 % topical patch 1 patch topical Q24H #15 e a 11/17/24 Allergies Allergy/AdvReac Type Severity Reaction Status Date / Time ibuprofen Allergy Severe Anaphylaxis Verified 11/17/24 14:22 buspirone Allergy Intermediate Dizziness/L Verified 11/17/24 14:22 ighthead General Stated Complaint: Nk/Back Pain AGUSTIN: 4 Exam Narrative Exam Narrative: General: alert, no acute distress HEENT: normocephalic, atraumatic, neck supple, pupils equal round reactive to light, moist mucous membranes, tolerating secretions, normal voice, no rhinorrhea or otorrhea Respiratory: normal respiratory effort, lungs clear bilaterally, no wheezes rales or rhonchi Cardiac: regular rate and rhythm, no murmurs rubs or gallops; equal pulses bilaterally, warm well perfused Abdominal: soft, nontender, nondistended; no organomegaly or palpable masses MSK: normal range of motion of extremities, warm, well perfused Back: No midline spinal tenderness above crepitus or deformity, patient does have some paraspinal lower lumbar muscle spasm Skin: warm, dry, no rashes or lesions Neuro: AAOx3, CN II-XII intact, 5/5 strength bilateral upper and lower extremities, normal speech, no ataxia Psych: normal mood, normal affect, calm, cooperative Course Vital Signs Vital signs: Vital Signs Temperature 36.7 C 11/17/24 14:16 Pulse 98 H 11/17/24 14:16 Respiratory Rate 18 11/17/24 14:16 Blood Pressure 159/77 H 11/17/24 14:16 Pulse Oximetry 98 11/17/24 14:16 Temperature 36.7 C 11/17/24 14:16 Temperature Source Oral 11/17/24 14:16 Pulse 98 H 11/17/24 14:16 Respiratory Rate 18 11/17/24 14:16 Blood Pressure 159/77 H 11/17/24 14:16 Pulse Oximetry 98 11/17/24 14:16 Oxygen Delivery Method Room Air 11/17/24 14:16 Oxygen Flow Rate 0 11/17/24 14:16 Medical Decision Making 44-year-old female history of chronic lower back pain, presents with atraumatic lower back pain that began approximately 8 AM this morning, nonradiating lower lumbar paraspinal in nature, denies trauma, denies fevers, denies bowel or bladder issues denies saddle anesthesia or paresthesias denies leg weakness or numbness, patient has full strength and sensation bilateral lower extremities, no midline spinal tenderness step-off crepitus or deformity. Patient is afebrile hemodynamically stable.-Suspicion for lumbar spasm versus radiculopathy, no evidence to suggest cauda equina conus medullaris spinal epidural abscess spinal dural hematoma or spinal compression at this time. Patient has no symptoms to suggest UTI or nephrolithiasis. Headache gradual in onset frontal in nature, patient nonmeningeal neurologically intact cranial nerves intact 5 of 5 strength upper lower extremities bilaterally no ataxia ambulatory without assistance. Will trial anti-inflammatory analgesia in the form of acetaminophen dexamethasone Lidoderm patch. Close reassessment to determine disposition 16: 37 patient resting comfortably feeling much better medication, patient requesting tramadol dose here in department, patient endorses having no issues with this medication in the past. Patient sitting upright moving all extremities neurologically intact. Will provide dose here in department will reassess and discharge home with home care instructions and medication. 17: 10 resting comfortably no acute distress feeling much better after medication. Family here to pick her up. PFSH All Active Problems (Updated 11/17/24 @ 17:12 by Willie Amin MD) Back pain (Acute) Chronic lower back pain (Chronic) Thoracic back pain (Acute) Lumbar radiculopathy (Acute) Post-nasal drip (Acute) BMI 37.0-37.9, adult (Acute) GERD (gastroesophageal reflux disease) (Chronic) Lumbar nerve root impingement (Acute) Migraine headache without aura (Acute) High risk human papillomavirus (HPV) DNA test positive (Acute) DUB (dysfunctional uterine bleeding) (Acute) Macromastia (Acute) Hypertension (Chronic) Abnormal Pap smear of cervix (Acute) Hyperlipidemia (Chronic) 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 Anxiety (Chronic) Abnormal uterine bleeding (Acute) Medical History (Updated 11/17/24 @ 17:12 by Willie Amin MD) Upper back pain Lower back pain Skin lesion right knee, lateral side, raised, firm, tender Maltracking of left patella COVID-19 Elbow pain No-show for appointment Right knee pain Family History Mother Hypertension Father No problems noted. Sister No problems noted. Brother No problems noted. Son No problems noted. Son No problems noted. Daughter No problems noted. Maternal Grandmother , 85 Heart disease Hypertension Social History Smoking/Tobacco Use Status: Current every day Tobacco Type: cigarettes Tobacco: How many years used: 20 Quit status: has quit before Second Hand Exposure: No Smoking risk assessment performed?: Yes Alcohol Intake: current Alcohol Intake frequency: holidays/special occasions only Alcohol type: wine Details: 6 or more drinks monthly or less Drug use: Never Substance use type: does not use Adopted: No Household members: significant other and children Housing: apartment Number of Children: 2 number of grandchildren: 0 Communication Needs: None Education Level: high school Do you need help understanding health information?: Never Pets and animals: No Sexually active: Yes Do you think of yourself as: straight/heterosexual Current gender identity: female What is your relationship status?: living with partner How often do you talk on the phone with friends or family?: once per week How often do you get together with friends or relatives?: twice per week How often do you attend episcopal or yarsani services?: 1-3 times per year Do you belong to any clubs or organized social groups?: no Panel score (0-1 are the most socially isolated patients): 2 What type of physical activity do you participate in: walking Duration: < 15 minutes/day Frequency: 1-2 times per week Genevieve/Gnosticist: Samaritan Special genevieve needs: No Seatbelt use: always Helmet use: No Drive intox or ride w/intox log truck driver: No Firearms in home: No Do you feel safe at home: Yes Do you feel safe in your relationship?: Yes Would you like helpful sources: No History History 3 Para 3 Hx # Term Pregnancies Multiple births Hx # Pregnancies Ectopic pregnancies AB induced Hx Number of Living Children 3 AB spontaneous Past Pregnancies Del. Date GA/Weeks # Preg Succ Route Wgt Sex Labor Lgth Anesth esia Location [facility] 10/22/06 No Male [place] 10/03/11 [place] 01/14/13 No vaginal 2267.962 g Female at home unknown preg
[2024-11-17] MEDS: Acetaminophen 325 MG TAB 650 MG PO (14:43)
[2024-11-17] MEDS: Dexamethasone 10 MG/ML VIAL IM (14:44)
[2024-11-17] MEDS: Lidocaine 5% Patch 1 PATCH TP (14:44)
[2024-11-17] MEDS: Cyclobenzaprine 10 MG TAB PO (16:18)
[2024-11-17] MEDS: traMADol 50 MG TAB PO (16:46)
== END 2024-11-17 17:28 | disposition home or self-care (01) ==
PROVIDERS: Emergency Provider Emergency Medicine; PCP Nurse Practitioner Family
DX: M54.50 Low back pain, unspecified (principal); R51.9 Headache, unspecified; E78.5 Hyperlipidemia, unspecified; F17.210 Nicotine dependence, cigarettes, uncomplicated
CPT/HCPCS: 96372; 99283; J1100

== ENCOUNTER 2024-11-25 22:00 | Emergency (ER) | payer MEDICAID, SELFPAY ==
[2024-11-25 22:02] VITALS: BP 133/84; PULSE 76; RESP 18; O2SAT 93
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
--- NOTE | 2024-11-25 22:59 | DI.CT_ITS ---
Exam(s) CT HEAD CERV SPINE FACIAL WO EXAM: CT HEAD CERV SPINE FACIAL WO CLINICAL HISTORY: fall, etoh, hit left face. TECHNIQUE: Imaging Protocol: Axial computed tomography images with coronal and sagittal reformatted images were created and reviewed COMPARISON: CT CT CERVICAL SPINE WO from 06/30/2024 FINDINGS: CT Head: Ventricles and Extra axial spaces: Normal in size and morphology for the patient's age. Hemorrhage: None. Cerebral parenchyma: No evidence of acute hemorrhage or acute infarct. Midline shift: None. Brainstem/Cerebellum: Normal. Calvarium: Normal. Visualized Paranasal sinuses/Mastoids: Clear. Soft Tissues: Unremarkable. CT Face: Facial Bones: Question tiny fracture at the tip of the nasal bones. Chronic appearing deformity of the floor of the right orbit could be secondary to an old fracture. Dental disease. Sinuses and Mastoids: Opacification of multiple ethmoid sinuses. Partial opacification of the sphenoid sinuses. Mucosal thickening of the maxillary sinuses, right greater than left. The mastoid air cells are clear. Globes, extraocular muscles, optic nerves and retrobulbar fat: Normal. Upper aerodigestive tract: Normal. Mandible and bilateral temporomandibular joints: Normal. Soft tissues: Soft tissue swelling of upper lip and nose. Multiple piercings. CT Cervical Spine: Bones: No acute fracture or subluxation. Soft Tissues: Unremarkable. Lung Apices: Clear. IMPRESSION: 1. No acute intracranial process. 2. No acute fracture or subluxation in the cervical spine. 3. Question of a tiny fracture at the tip of the nasal bones. Soft tissue swelling of the nose and upper lip. The preliminary [facility] report was reviewed. RADIATION DOSE DELIVERED: 1,668.24mGy.cm Total DLP DATA REPOSITORY: All CT scans at this facility are submitted to the National Radiology Data Registry (NRDR) Dose Index Registry (DIR) with the [employer] (ACR). RADIATION OPTIMIZATION: All CT scans at this facility use at least one of these dose optimization techniques: automated exposure control; mA and/or kV adjustment per patient size (includes targeted exams where dose is matched to clinical indication); or iterative reconstruction.
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
[2024-11-26 01:12] VITALS: RESP 20
[2024-11-26] MEDS: Acetaminophen 500 MG TAB 1000 MG PO (02:43)
[2024-11-26 03:05] VITALS: BP 133/77; PULSE 77; RESP 16; TEMP 36.6; O2SAT 95
== END 2024-11-26 00:37 | disposition home or self-care (01) ==
PROVIDERS: Emergency Provider Student in an Organized Health Care Education/Training Program; PCP Nurse Practitioner Family
DX: S02.2XXA Fracture of nasal bones, initial encounter for closed fracture (principal); W19.XXXA Unspecified fall, initial encounter; F10.920 Alcohol use, unspecified with intoxication, uncomplicated
CPT/HCPCS: 99284; 99283; 70450; 70486; 72125

== ENCOUNTER 2024-11-26 09:56 | Emergency (ER) | payer MEDICAID, SELFPAY ==
[2024-11-26 10:09] VITALS: BP 155/90; PULSE 84; RESP 16; TEMP 36.7; O2SAT 97
[2024-11-26] MEDS: ACETAMINOPHEN 500 MG/50 ML BAG 200 MG IVPB (11:01)
[2024-11-26] MEDS: Prochlorperazine 10 MG/2 ML VIAL IVP (11:07)
[2024-11-26] MEDS: Normal Saline 1,000 ML 1000 ML IV (11:07)
[2024-11-26] MEDS: Ketorolac 15 MG/ML VIAL 7.5 MG IVP (11:07)
[2024-11-26] MEDS: oxyCODONE 5 MG TAB PO (12:20)
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
--- NOTE | 2024-11-28 11:38 | NUR.NOTE ---
Nursing Note: Received call from patient asking for alcohol mention on her paperwork to be removed. Transferred to medical records to file a formal request for addendum of medical records
== END 2024-11-26 12:28 | disposition home or self-care (01) ==
PROVIDERS: Emergency Provider Physician Assistant; PCP Nurse Practitioner Family
DX: S06.0XAA Concussion with loss of consciousness status unknown, initial encounter (principal); S02.2XXA Fracture of nasal bones, initial encounter for closed fracture; S80.01XA Contusion of right knee, initial encounter; Y04.8XXA Assault by other bodily force, initial encounter
CPT/HCPCS: 99284 ×2; 96374; 96375; J0131; J0780; J1885

== ENCOUNTER 2024-12-25 14:15 | Emergency (ER) | payer MEDICAID, SELFPAY ==
[2024-12-25 14:25] VITALS: BP 155/89; PULSE 79; RESP 14; TEMP 36.3; O2SAT 95
--- NOTE | 2024-12-25 14:44 | W.ED.GENAD ---
Discharge Plan Disposition Patient Disposition: Home Condition: Stable Discharge Details Clinical Impression: Back pain Primary Care Provider: Nick Ritter ED Provider: Valentino Duran [place] Meds and New Rx's Prescriptions: New prednisone 20 mg tablet 60 mg PO DAILY 4 Days Qty: 12 0RF gabapentin 300 mg capsule 300 mg PO TID Qty: 42 0RF Continued amitriptyline 10 mg tablet 20 mg PO QHS Qty: 180 4RF amlodipine 10 mg tablet 10 mg PO DAILY Qty: 90 4RF escitalopram oxalate 20 mg tablet 20 mg PO DAILY Qty: 90 4RF fluticasone propionate [Flonase Allergy Relief] 50 mcg/actuation spray,suspension 1 spray intranasal Q12H Qty: 16 4RF Rx Instructions: administer into each nostril lidocaine 5 % adhesive patch,medicated 1 patch topical DAILY Qty: 30 0RF Rx Instructions: leave on most painful area for up to 12 hrs methocarbamol 750 mg tablet 750 mg PO QID PRN (Reason: muscle spasm) Qty: 60 0RF magnesium oxide 400 mg magnesium capsule 400 mg PO QHS Qty: 90 3RF Rx Instructions: take for at least 6 weeks omeprazole 20 mg capsule,delayed release(DR/EC) 20 mg PO DAILY Qty: 90 1RF riboflavin (vitamin B2) 100 mg tablet 200 mg PO BID Qty: 360 1RF Rx Instructions: take for at least 6 weeks rizatriptan [Maxalt-[employer]ULTANT] 10 mg tablet,disintegrating 10 mg PO ONCE PRN (Reason: migraine headache) Qty: 9 11RF celecoxib [Celebrex] 100 mg capsule 100 mg PO BID Qty: 180 0RF acetaminophen [Acetaminophen Extra Strength] 500 mg Tablet 1,000 mg PO Q6H PRN lidocaine 5 % adhesive patch,medicated 1 patch topical Q24H Qty: 15 0RF Rx Instructions: leave on most painful area for up to 12 hrs No Action cyclobenzaprine 5 mg tablet 5 mg PO QHS PRN (Reason: muscle spasm) Qty: 7 0RF cyclobenzaprine 10 mg tablet 10 mg PO TID PRN Patient Comments: TAKE ONE TABLET BY MOUTH THREE TIMES A DAY NEEDED oxycodone 5 mg capsule 5 mg PO Q8H PRNQty: 4 0RF Discharge Instructions Additional Instructions: Follow-up with your primary care provider this week especially if your symptoms are improving. If you have new symptoms such as abdominal pain or high fevers return to the emergency department for reevaluation. You can try [id number] topical therapies such as Aspercreme HPI General Mode of arrival: ambulatory. Date/Time Provider Initiated Documentation: 12/25/24 14:17. Limitations to Documentation: no limitations. Information obtained by: patient. History of Present Illness 44 year old F presents to the emergency department with the chief complaint of lower back pain, described as moderate, Quality is described as aching, Patient started experiencing this day(s) (3) and it has been constant. No relieving factors improve symptom(s), No exacerbating factors reported . Patient notes no other symptoms.. Related Data Home Medications ?Medication ?Instructions ?Recorded ?Confirmed acetaminophen 500 mg tablet 1,000 mg PO Q6H PRN 07/22/21 12/25/24 (Acetaminophen Extra Strength) amitriptyline 10 mg tablet 20 mg (2 x 10 mg) PO QHS #180 tabs 11/09/24 12/25/24 amlodipine 10 mg tablet 10 mg PO DAILY #90 tabs 11/09/24 12/25/24 escitalopram oxalate 20 mg tablet 20 mg PO DAILY #90 tabs 11/09/24 12/25/24 fluticasone propionate 50 1 spray intranasal Q12H #16 grams 11/09/24 12/25/24 mcg/actuation nasal spray,suspension (Flonase Allergy Relief) lidocaine 5 % topical patch 1 patch topical DAILY #30 ea 11/09/24 12/25/24 magnesium oxide 400 mg PO QHS #90 caps 11/09/24 12/25/24 methocarbamol 750 mg tablet 750 mg PO QID PRN muscle spasm #60 11/09/24 12/25/24 tabs omeprazole 20 mg capsule,delayed 20 mg PO DAILY #90 caps 11/09/24 12/25/24 release riboflavin (vitamin B2) 100 mg 200 mg (2 x 100 mg) PO BID #360 11/09/24 12/25/24 tablet tabs rizatriptan 10 mg disintegrating 10 mg PO ONCE PRN migraine 11/09/24 12/25/24 tablet (Maxalt-[employer]) headache #9 tabs cyclobenzaprine 5 mg tablet 5 mg PO QHS PRN muscle spasm #7 11/17/24 12/25/24 tabs lidocaine 5 % topical patch 1 patch topical Q24H #15 ea 11/17/24 12/25/24 cyclobenzaprine 10 mg tablet 10 mg PO TID PRN 11/26/24 12/25/24 oxycodone 5 mg capsule 5 mg PO Q8H PRN #4 caps 11/26/24 12/25/24 celecoxib 100 mg capsule (Celebrex) 100 mg PO BID #180 caps 12/13/24 12/25/24 gabapentin 300 mg capsule 300 mg PO TID #42 caps 12/25/24 prednisone 20 mg tablet 60 mg (3 x 20 mg) PO DAILY 4 days 12/25/24 #12 tabs Previous Rx's ?Medication ?Instructions ?Recorded amitriptyline 10 mg tablet 20 mg (2 x 10 mg) PO QHS #180 tabs 11/09/24 amlodipine 10 mg tablet 10 mg PO DAILY #90 tabs 11/09/24 escitalopram oxalate 20 mg tablet 20 mg PO DAILY #90 tabs 11/09/24 fluticasone propionate 50 1 spray intranasal Q12H #16 grams 11/09/24 mcg/actuation nasal spray,suspension (Flonase Allergy Relief) lidocaine 5 % topical patch 1 patch topical DAILY #30 ea 11/09/24 magnesium oxide 400 mg PO QHS #90 caps 11/09/24 methocarbamol 750 mg tablet 750 mg PO QID PRN muscle spasm #60 11/09/24 tabs omeprazole 20 mg capsule,delayed 20 mg PO DAILY #90 caps 11/09/24 release riboflavin (vitamin B2) 100 mg 200 mg (2 x 100 mg) PO BID #360 11/09/24 tablet tabs rizatriptan 10 mg disintegrating 10 mg PO ONCE PRN migraine 11/09/24 tablet (Maxalt-[employer]) headache #9 tabs cyclobenzaprine 5 mg tablet 5 mg PO QHS PRN muscle spasm #7 11/17/24 tabs lidocaine 5 % topical patch 1 patch topical Q24H #15 ea 11/17/24 oxycodone 5 mg capsule 5 mg PO Q8H PRN #4 caps 11/26/24 celecoxib 100 mg capsule (Celebrex) 100 mg PO BID #180 caps 12/13/24 gabapentin 300 mg capsule 300 mg PO TID #42 caps 12/25/24 prednisone 20 mg tablet 60 mg (3 x 20 mg) PO DAILY 4 days 12/25/24 #12 tabs Allergies Allergy/AdvReac Type Severity Reaction Status Date / Time ibuprofen Allergy Severe Anaphylaxis Verified 12/25/24 14:27 buspirone Allergy Intermediate Dizziness/L Verified 12/25/24 14:27 ighthead General Stated Complaint: Nk/Back Pain AGUSTIN: 4 Review of Systems All systems reviewed & are unremarkable except as noted in HPI and below Constitutional Constitutional: Denies chills, Denies fever(s) and Denies weakness Cardiovascular Cardiovascular: Denies chest pain and Denies dyspnea Respiratory Respiratory: Denies cough and Denies dyspnea Gastrointestinal Gastrointestinal: Denies abdominal pain, Denies nausea and Denies vomiting Musculoskeletal Musculoskeletal: Reports back pain Neurologic Neurologic: Denies weakness Psychiatric Psychiatric: Denies depression Exam Const General: no acute distress Orientation: alert HENMT Head: normal to inspection Ears: external ears normal General nose exam: external nose normal Mouth: moist mucous membranes Eyes General: appearance normal, both eyes and all related structures Neck Neck: normal visual inspection Resp Effort & Inspection: normal respiratory effort and able to speak in complete sentences Cardio Rate: regular rate Back/Spine/Pelvis Thoracic/Lumbar Spine: paraspinal tenderness, No thoracic spinal tenderness and No lumbar spinal tenderness Skin General skin exam: no rashes or lesions noted Neuro General: patient alert and patient oriented x3 Extrem General: normal to inspection Psych Mental Status: mental status grossly normal Course Vital Signs Vital signs: Vital Signs Temperature 36.3 C L 12/25/24 14:25 Pulse 79 12/25/24 14:25 Respiratory Rate 14 12/25/24 14:25 Blood Pressure 155/89 H 12/25/24 14:25 Pulse Oximetry 95 12/25/24 14:25 Temperature 36.3 C L 12/25/24 14:25 Temperature Source Oral 12/25/24 14:25 Pulse 79 12/25/24 14:25 Respiratory Rate 14 12/25/24 14:25 Blood Pressure 155/89 H 12/25/24 14:25 Blood Pressure Position Sitting 12/25/24 14:25 Pulse Oximetry 95 12/25/24 14:25 Oxygen Delivery Method Room Air 12/25/24 14:25 Oxygen Flow Rate 0 12/25/24 14:25 Pain Level 9 12/25/24 14:25 Medical Decision Making 44-year-old female who has had chronic issues with her lower back comes in with 3 days of increased back pain. She says that when this happens she normally gets steroids and gabapentin which usually helps her discomfort. She denies any IV drug use, no changes in urination or bowel habits. Denies any fevers or chills. She is stable on arrival and localizes the pain to the lower back, no midline pain localizes to the paraspinous muscles. There is no erythema or warmth. She has no saddle anesthesia and has intact distal sensation and pulses in the legs. I suspect musculoskeletal back pain and has no red flags to suggest cauda equina, spinal epidural abscess, osteomyelitis. She denies any trauma so I do not feel any acute emergent imaging is indicated. I will treat her symptoms with a shot of Toradol and will trial prednisone and gabapentin. She will follow-up with her PCP and return precautions given. She has no abdominal tenderness on exam so I doubt intra-abdominal pathology such as appendicitis. No flank pain to suggest kidney stone. Differential Diagnosis Differential Diagnosis: Musculoskeletal back pain, disc herniation Quality:SDDE Health Related Social Needs: Health related social needs risk of homeless Health related social needs details pt living in alf. Pt feels safe and has access to resources currently at alf. PFSH All Active Problems (Updated 12/25/24 @ 14:47 by Valentino Duran MD) Back pain (Acute) Abrasion (Acute) Concussion (Acute) Alcohol intoxication (Acute) Fracture, nasal (Acute) Thoracic back pain (Acute) Lumbar radiculopathy (Acute) Post-nasal drip (Acute) BMI 37.0-37.9, adult (Acute) GERD (gastroesophageal reflux disease) (Chronic) Lumbar nerve root impingement (Acute) Migraine headache without aura (Acute) High risk human papillomavirus (HPV) DNA test positive (Acute) DUB (dysfunctional uterine bleeding) (Acute) Macromastia (Acute) Hypertension (Chronic) Abnormal Pap smear of cervix (Acute) Hyperlipidemia (Chronic) 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 Anxiety (Chronic) Abnormal uterine bleeding (Acute) Medical History (Updated 12/25/24 @ 14:47 by Valentino Duran MD) Upper back pain Lower back pain Skin lesion right knee, lateral side, raised, firm, tender Maltracking of left patella COVID-19 Elbow pain No-show for appointment Right knee pain Family History Mother Hypertension Father No problems noted. Sister No problems noted. Brother No problems noted. Son No problems noted. Son No problems noted. Daughter No problems noted. Maternal Grandmother , 85 Heart disease Hypertension Social History Smoking/Tobacco Use Status: Current every day Tobacco Type: cigarettes Tobacco: How many years used: 20 Quit status: has quit before Second Hand Exposure: No Smoking risk assessment performed?: Yes Alcohol Intake: current Alcohol Intake frequency: holidays/special occasions only Alcohol type: wine Details: 6 or more drinks monthly or less Drug use: Never Substance use type: does not use Adopted: No Household members: significant other and children Housing: other Number of Children: 2 number of grandchildren: 0 Communication Needs: None Education Level: high school Do you need help understanding health information?: Never Pets and animals: No Sexually active: Yes Do you think of yourself as: straight/heterosexual Current gender identity: female What is your relationship status?: living with partner How often do you talk on the phone with friends or family?: once per week How often do you get together with friends or relatives?: twice per week How often do you attend lutheran or anabaptist services?: 1-3 times per year Do you belong to any clubs or organized social groups?: no Panel score (0-1 are the most socially isolated patients): 2 What type of physical activity do you participate in: walking Duration: < 15 minutes/day Frequency: 1-2 times per week Genevieve/Bahai: [employer] Special genevieve needs: No Seatbelt use: always Helmet use: No Drive intox or ride 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 Date GA/Weeks # Preg Succ Route Wgt Sex Labor Lgth Anesthesia Location Prov Complic 10/22/06 No Male [place] 10/03/11 [place] 01/14/13 No vaginal 2267.962 g Female at home unknown preg
[2024-12-25] MEDS: Gabapentin 300 MG CAP PO (14:53)
[2024-12-25] MEDS: Ketorolac 15 MG/ML VIAL IM (14:54)
[2024-12-25] MEDS: predniSONE 20 MG TAB 60 MG PO (14:54)
== END 2024-12-25 15:01 | disposition home or self-care (01) ==
PROVIDERS: Emergency Provider Emergency Medicine; PCP Nurse Practitioner Family
DX: M54.50 Low back pain, unspecified (principal); Z59.01 Sheltered homelessness
CPT/HCPCS: 99283; 99284; 96372; J1885; J7512

== ENCOUNTER 2025-01-11 18:54 | Outpatient (CLI) | payer MEDICAID, SELFPAY ==
--- NOTE | 2025-01-11 | DI.RAD_ITS ---
Exam(s) XR CERVICAL SPINE COMP 4-5V EXAM: XR CERVICAL SPINE COMP 4-5V CLINICAL HISTORY: eval pathology,NECK PAIN, M54.2. TECHNIQUE: 2D digital imaging was performed. Six images were obtained. AP, odontoid, lateral and bilateral oblique images were obtained. COMPARISON: No exams were available for comparison FINDINGS: The odontoid is intact. The lateral masses are well aligned. There is normal alignment of the cervical spine. The vertebral bodies, disc spaces and posterior elements are well maintained. No acute fracture or subluxation is present. No significant neural foraminal stenosis is present. The cervical thoracic junction is well maintained. The prevertebral soft tissues are unremarkable. Lung apices are clear. IMPRESSION: Unremarkable radiographs of the cervical spine. DATA REPOSITORY: RADIATION DOSE DELIVERED:
--- NOTE | 2025-01-11 14:51 | DI.CT_ITS ---
Exam(s) CT HEAD WO EXAM: CT HEAD WO CLINICAL HISTORY: evaluate pathology,VISUAL CHANGES,HEADACHE,R51.9. TECHNIQUE: Imaging Protocol: Axial computed tomography images with coronal and sagittal reformatted images were created and reviewed COMPARISON: CT CT HEAD CERV SPINE FACIAL WO from 11/25/2024 FINDINGS: Ventricles and Extra axial spaces: Normal in size and morphology for the patient's age. Hemorrhage: None. Cerebral parenchyma: Normal. Midline shift: None. Brainstem/Cerebellum: Normal. Calvarium: Normal. Visualized Paranasal sinuses/Mastoids: There is opacification of several ethmoid air cells, left greater than right. There is mucosal thickening in the sphenoid sinuses bilaterally. The mastoid air cells are clear as are the frontal sinuses. Soft Tissues: Unremarkable. IMPRESSION: 1. No acute intracranial process. 2. Mild paranasal sinus disease. RADIATION DOSE DELIVERED: 862.69mGy.cm Total DLP DATA REPOSITORY: All CT scans at this facility are submitted to the National Radiology Data Registry (NRDR) Dose Index Registry (DIR) with the [employer] ([employer]). RADIATION OPTIMIZATION: All CT scans at this facility use at least one of these dose optimization techniques: automated exposure control; mA and/or kV adjustment per patient size (includes targeted exams where dose is matched to clinical indication); or iterative reconstruction.
== END 2025-01-11 19:14 ==
PROVIDERS: PCP Nurse Practitioner Family; Visit Provider Nurse Practitioner Family
DX: R51.9 Headache, unspecified (principal); J34.89 Other specified disorders of nose and nasal sinuses
CPT/HCPCS: 70450; 72050

== ENCOUNTER 2025-01-12 08:30 | Outpatient (CLI) | payer MEDICAID, SELFPAY ==
--- NOTE | 2025-01-12 06:00 | DI.RAD_ITS ---
Exam(s) XR PAIN CLINIC LUMBAR SP 2V EXAM: XR PAIN CLINIC LUMBAR SP 2V CLINICAL HISTORY: Dx: Lumbar Radiculopathy. TECHNIQUE: Fluoroscopy was provided for the referring physician for guidance with performing pain clinic injection procedure. COMPARISON: No exams were available for comparison FINDINGS: Please see procedure note for details. Fluoro time: 24.3 seconds RADIATION DOSE DELIVERED: Ka,r=15.2 mGy
[2025-01-12 08:47] VITALS: BP 119/79; PULSE 84; RESP 18; TEMP 37.1; O2SAT 97
[2025-01-12 09:16] VITALS: PULSE 70; RESP 22; O2SAT 98
[2025-01-12 09:17] VITALS: BP 188/114; PULSE 70; PULSE 73; RESP 20; O2SAT 98
[2025-01-12 09:20] VITALS: PULSE 69; RESP 22; O2SAT 97
[2025-01-12 09:28] VITALS: BP 175/111; PULSE 68
[2025-01-12 09:31] VITALS: BP 154/94; PULSE 73
[2025-01-12] MEDS: methylPREDNISolone ACETATE 80 MG/ML VIAL IJ (09:33)
[2025-01-12] MEDS: Omnipaque 240 MG/ML 50 ML BTL IJ (09:33)
--- NOTE | 2025-01-12 09:38 | PDOC.PAIN_ITS ---
Date of service: 01/12/25 Time of Service: 09:38 Pain Managment Procedure Note Procedure Note Procedure Note: PROCEDURE NOTE LUMBAR EPIDURAL STEROID INJECTION Date of Service: January 12, 2025 Patient:Hilda Shine? Provider: Mo Charlton DO, MPH Hilda Garcia has been referred to the [facility] for a lumbar epidural steroid injection. Pre-operative diagnosis: Lumbosacral Radiculopathy ICD-10 M54.16 Post-operative diagnosis: Same Pre-Procedure Pain: VAS= 8-9 /10 Comments: I previously evaluated her in the office. Her last LESI was on 06/22/24 with >3 months of >50% pain relief. Hilda was interviewed and the medical record was reviewed.? There were no medical, pharmacologic, radiographic or other structural contraindications to attempting fluoroscopically guided Lumbar epidural steroid injection.? Risks, potential side effects, indications, and potential benefits of the procedure were reviewed with Hilda.? Questions and concerns were addressed.? After it was clear that Hilda was fully informed about the procedure, the printed consent form was signed by the patient and myself.? Hilda was placed in the prone position on the fluoroscopy table and automated blood pressure cuff and pulse oximeter applied. The skin entry point for enteri ng/approaching the epidural space for the lumbar epidural steroid injection was marked. Following thorough chlorhexadine preparation of the skin and draping and 1% lidocaine infiltration of the skin entry point and subcutaneous tissues, an 18 gauge 5 Touhy needle was placed and advanced under fluoroscopic guidance and with loss of resistance technique into the L5-S1 epidural space. Needle tip placement and depth were aided and confirmed by fluoroscopy. There was no paresthesia or return of blood or CSF through the needle. 1 mls of Omnipaque 240 was injected with clear epidural spread confirmed with fluoroscopy. 80 mg of Depo-Medrol was? injected. This was followed by 1 ml of preservative-free normal saline to flush the steroid out of the needle. There was no unusual discomfort expressed by Hilda. The needle was withdrawn without difficulty. (49 mls of Omnipaque was wasted) Hilda was observed and was without hemodynamic, neurologic, or allergic reactions.? Fluoroscopic images were digitally archived. Hilda's vital signs were stable throughout the procedure and were as recorded in nursing records. Follow up plans and appointments were discussed with Hilda. Post procedure instruction was given as documented in nursing records and having met discharge criteria Hilda was discharged from the [facility]. COMMENTS: No apparent complications. Post-procedure pain: VAS= 0/10. Hilda to contact [facility] as needed. If at least 50% improvement in pain and/or function for at least 3 months is achieved, this procedure can be repeated. I personally performed this entire procedure. MO CHARLTON DO, MPH ABPMR-subspecialty board certification in Pain Medicine [facility] Coding Conscious Sedation used for procedure: No CPT Codes: Inj Spine L/S w/Imaging - 35026 ([id number] ~G) Additional Codes: Date of Service (06500) Date of service: 01/12/25 Diagnoses: lumbar radiculopathy
== END 2025-01-12 08:31 | disposition home or self-care (01) ==
LOC: PC 08:30
PROVIDERS: PCP Nurse Practitioner Family; Visit Provider Preventive Medicine Occupational Medicine
DX: M54.16 Radiculopathy, lumbar region (principal)
CPT/HCPCS: 62323; 72100; J1010; Q9967

== ENCOUNTER 2025-04-19 09:34 | Emergency (ER) | payer MEDICAID, SELFPAY ==
[2025-04-19 09:41] VITALS: BP 158/81; PULSE 85; RESP 16; TEMP 36.8; O2SAT 100
[2025-04-19] MEDS: Ketorolac 30 MG/ML VIAL IM (10:40)
[2025-04-19] MEDS: Gabapentin 300 MG CAP PO (10:40)
--- NOTE | 2025-04-19 11:03 | W.ED.GENAD ---
Discharge Plan Disposition Patient Disposition: Home Condition: Stable Discharge Details Clinical Impression: Sciatic pain, Chronic low back pain Primary Care Provider: Nick Ritter ED Provider: Panda Worrell Home Meds and New Rx's Prescriptions: Continued norethindrone (contraceptive) [Lyza] 0.35 mg tablet 0.35 mg PO DAILY Qty: 84 4RF Rx Instructions: start day 1 of menstrual cycle albuterol sulfate 90 mcg/actuation HFA aerosol inhaler 2 puff inhalation Q6H PRN (Reason: shortness of breath or wheezing) Qty: 8.5 0RF fluticasone propionate [Flonase Allergy Relief] 50 mcg/actuation spray,suspension 1 spray intranasal Q12H Qty: 16 4RF Rx Instructions: administer into each nostril riboflavin (vitamin B2) 50 mg tablet 50 mg PO DAILY amitriptyline 10 mg tablet 20 mg PO QHS Qty: 180 4RF amlodipine 10 mg tablet 10 mg PO DAILY Qty: 90 4RF lidocaine 5 % adhesive patch,medicated 1 patch topical DAILY Qty: 30 0RF Rx Instructions: leave on most painful area for up to 12 hrs magnesium oxide 400 mg magnesium capsule 400 mg PO QHS Qty: 90 3RF Rx Instructions: take for at least 6 weeks omeprazole 20 mg capsule,delayed release(DR/EC) 20 mg PO DAILY Qty: 90 1RF rizatriptan [Maxalt-INBOUND CALL CENTER REPRESENTATIVE] 10 mg tablet,disintegrating 10 mg PO ONCE PRN (Reason: migraine headache) Qty: 9 11RF celecoxib [Celebrex] 100 mg capsule 100 mg PO BID Qty: 180 0RF lidocaine 5 % adhesive patch,medicated 1 patch topical Q24H Qty: 15 0RF Rx Instructions: leave on most painful area for up to 12 hrs No Action gabapentin 300 mg capsule 600 mg PO TID Qty: 180 5RF Rx Instructions: dose increase hydroxyzine HCl 50 mg tablet 50 mg PO QHS PRN (Reason: anxiety) Qty: 60 1RF methocarbamol 750 mg tablet 750 mg PO QID PRN (Reason: muscle spasm) Qty: 60 0RF Discharge Instructions Instructions: Low Back Pain ED Additional Instructions: Please follow-up with your pain specialist. Please follow-up with your primary care physician regarding your prescribed medications. Please be sure to discuss potential treatment options including physical therapy. Call today. Return to the emergency department immediately for any worsening or new concerning symptoms. Stand Alone Forms: Portal Information Referrals: Nick Ritter NP [Primary Care Provider, Medicine] Discharge Data Discharge Date/Time-TO BE ENTERED AT DEPARTURE: 04/19/25 11:56 HPI General Mode of arrival: ambulatory. Date/Time Provider Initiated Documentation: 04/19/25 10:00. Limitations to Documentation: no limitations. Information obtained by: patient. HPI Narrative: HISTORY OF PRESENT ILLNESS 45-year-old female patient with lumbar disc disease presents with severe back pain radiating down the right leg, persistent for 3 weeks, with a history of similar episodes. Pain worsens with standing and walking. Under care of Dr. Charlton, last consulted on 05/03/2025. Received steroid injections from Dr. Charlton, scheduled for another on 05/03/2025. Current pain management includes ineffective lidocaine patches and methocarbamol. Unable to refill gabapentin until 0100 hours due to insurance. Reports no urinary or bowel issues, abdominal pain, or incontinence. History of surgical removal of a fatty tumor. Uses Toradol injections for leg pain. Has not taken ibuprofen today. Smokes cigarettes, no drug use or alcohol consumption. Related Data Home Medications ?Medication ?Instructions ?Recorded ?Confirmed amitriptyline 10 mg tablet 20 mg (2 x 10 mg) PO QHS #180 tabs 11/09/24 05/03/25 amlodipine 10 mg tablet 10 mg PO DAILY #90 tabs 11/09/24 05/03/25 lidocaine 5 % topical patch 1 patch topical DAILY #30 ea 11/09/24 05/03/25 magnesium oxide 400 mg PO QHS #90 caps 11/09/24 05/03/25 omeprazole 20 mg capsule,delayed 20 mg PO DAILY #90 caps 11/09/24 05/03/25 release rizatriptan 10 mg disintegrating 10 mg PO ONCE PRN migraine 11/09/24 05/03/25 tablet (Maxalt-INBOUND CALL CENTER REPRESENTATIVE) headache #9 tabs lidocaine 5 % topical patch 1 patch topical Q24H #15 ea 11/17/24 05/03/25 celecoxib 100 mg capsule (Celebrex) 100 mg PO BID #180 caps 12/13/24 05/03/25 riboflavin (vitamin B2) 50 mg 50 mg PO DAILY 03/10/25 05/03/25 tablet albuterol sulfate 90 mcg/actuation 2 puff inhalation Q6H PRN 04/07/25 05/03/25 aerosol inhaler shortness of breath or wheezing #8.5 grams fluticasone propionate 50 1 spray intranasal Q12H #16 grams 04/07/25 05/03/25 mcg/actuation nasal spray,suspension (Flonase Allergy Relief) norethindrone (contraceptive) 0.35 0.35 mg PO DAILY #84 tabs 04/07/25 05/03/25 mg tablet (Lyza) gabapentin 300 mg capsule 600 mg (2 x 300 mg) PO TID #180 04/24/25 05/03/25 caps hydroxyzine HCl 50 mg tablet 50 mg PO QHS PRN anxiety #60 tabs 04/24/25 05/03/25 methocarbamol 750 mg tablet 750 mg PO QID PRN muscle spasm #60 04/24/25 05/03/25 tabs Previous Rx's ?Medication ?Instructions ?Recorded amitriptyline 10 mg tablet 20 mg (2 x 10 mg) PO QHS #180 tabs 11/09/24 amlodipine 10 mg tablet 10 mg PO DAILY #90 tabs 11/09/24 lidocaine 5 % topical patch 1 patch topical DAILY #30 ea 11/09/24 magnesium oxide 400 mg PO QHS #90 caps 11/09/24 omeprazole 20 mg capsule,delayed 20 mg PO DAILY #90 caps 11/09/24 release rizatriptan 10 mg disintegrating 10 mg PO ONCE PRN migraine 11/09/24 tablet (Maxalt-INBOUND CALL CENTER REPRESENTATIVE) headache #9 tabs lidocaine 5 % topical patch 1 patch topical Q24H #15 ea 11/17/24 celecoxib 100 mg capsule (Celebrex) 100 mg PO BID #180 caps 12/13/24 albuterol sulfate 90 mcg/actuation 2 puff inhalation Q6H PRN 04/07/25 aerosol inhaler shortness of breath or wheezing #8.5 grams fluticasone propionate 50 1 spray intranasal Q12H #16 grams 04/07/25 mcg/actuation nasal spray,suspension (Flonase Allergy Relief) norethindrone (contraceptive) 0.35 0.35 mg PO DAILY #84 tabs 04/07/25 mg tablet (Lyza) gabapentin 300 mg capsule 600 mg (2 x 300 mg) PO TID #180 04/24/25 caps hydroxyzine HCl 50 mg tablet 50 mg PO QHS PRN anxiety #60 tabs 04/24/25 methocarbamol 750 mg tablet 750 mg PO QID PRN muscle spasm #60 04/24/25 tabs Allergies Allergy/AdvReac Type Severity Reaction Status Date / Time ibuprofen Allergy Severe Anaphylaxis Verified 05/03/25 08:37 buspirone Allergy Intermediate Dizziness/L Verified 05/03/25 08:37 ighthead General Stated Complaint: Nk/Back Pain AGUSTIN: 4 Review of Systems All systems reviewed & are unremarkable except as noted in HPI and below Musculoskeletal Musculoskeletal: Reports as per HPI Neurologic Neurologic: Denies sensory deficit Exam Const General: cooperative and no acute distress HENMT Mouth: moist mucous membranes Eyes Conjunctivae: normal conjunctivae Sclera: normal sclerae Resp Auscultation: clear to auscultation bilaterally, no rales, no rhonchi and no wheezes Cardio Rate: regular rate and not tachycardic Rhythm: regular rhythm GI Palpation: soft, not firm, no guarding, no masses, not rigid and nontender Back/Spine/Pelvis Back: No mass, No erythema, No warmth and No ecchymosis Thoracic/Lumbar Spine: paraspinal tenderness (bilateral lower thoracic and lumbar worse on right), thoracic spinal tenderness (lower) and lumbar spinal tenderness Skin General skin exam: no rashes or lesions noted Neuro General: patient alert, patient awake, tone normal, no focal motor deficits and deep tendon reflexes 2+ bilaterally Motor: strength 5/5 throughout Sensory Exam: no sensory deficits noted Other: No saddle anesthesia Course Vital Signs Vital signs: Vital Signs Temperature 36.8 C 04/19/25 09:41 Pulse 85 04/19/25 09:41 Respiratory Rate 16 04/19/25 09:41 Blood Pressure 158/81 H 04/19/25 09:41 Pulse Oximetry 100 04/19/25 09:41 Temperature 36.8 C 04/19/25 09:41 Temperature Source Temporal Artery Scan 04/19/25 09:41 Pulse 85 04/19/25 09:41 Respiratory Rate 16 04/19/25 09:41 Blood Pressure 158/81 H 04/19/25 09:41 Blood Pressure Position Sitting 04/19/25 09:41 Pulse Oximetry 100 04/19/25 09:41 Oxygen Delivery Method Room Air 04/19/25 09:41 Oxygen Flow Rate 0 04/19/25 09:41 Pain Level 8 04/19/25 09:49 Medical Decision Making ASSESSMENT AND PLAN 45-year-old female severe back pain radiating down right leg, exacerbated for 3 weeks. History of lumbar disc disease. Previous steroid injections provided relief for 3 months. Currently using lidocaine patches and methocarbamol, but has run out of methocarbamol. Takes gabapentin 300 mg but cannot refill until 0100 hours due to insurance issues. Patient neurologically intact. No signs of cauda equina. Differential Diagnosis: - Lumbar disc disease: History of lumbar disc disease. Previous steroid injections provided relief. Plan: Administer Toradol injection for immediate pain relief. Consult with Nick regarding gabapentin and muscle relaxants. ED Course: - Toradol injection administered Clinical Impression: - Lumbar disc disease Follow-Up: Consult with PCP and regarding gabapentin and muscle relaxants. Follow-up with pain managment. This document was written with the assistance of FRANK Gregg. The patient consented to its use. Quality:SDOH Health Related Social Needs: Health related social needs inadequate housing Health related social needs details pt living in assisted. Pt feels safe and has access to resources currently at assisted. PFSH All Active Problems Chronic low back pain (Chronic) Snoring (Acute) Thoracic back pain (Acute) Lumbar radiculopathy (Acute) Post-nasal drip (Acute) BMI 37.0-37.9, adult (Acute) GERD (gastroesophageal reflux disease) (Chronic) Lumbar nerve root impingement (Acute) Migraine headache without aura (Acute) High risk human papillomavirus (HPV) DNA test positive (Acute) DUB (dysfunctional uterine bleeding) (Acute) Macromastia (Acute) Hypertension (Chronic) Abnormal Pap smear of cervix (Acute) Hyperlipidemia (Chronic) 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 Anxiety (Chronic) Abnormal uterine bleeding (Acute) Medical History Upper back pain Lower back pain Skin lesion right knee, lateral side, raised, firm, tender Maltracking of left patella Right knee pain Elbow pain COVID-19 No-show for appointment Family History Mother Hypertension Father No problems noted. Sister No problems noted. Brother No problems noted. Son No problems noted. Son No problems noted. Daughter No problems noted. Maternal Grandmother , 85 Heart disease Hypertension Social History Smoking/Tobacco Use Status: Current every day Tobacco Type: cigarettes Tobacco: How many years used: 8 Quit status: has quit before Second Hand Exposure: No Smoking risk assessment performed?: Yes Alcohol Intake: current Alcohol Intake frequency: holidays/special occasions only Alcohol type: wine Details: 6 or more drinks monthly or less Drug use: Never Substance use type: does not use Counseling given: No Adopted: No Household members: significant other and children Housing: other Number of Children: 2 number of grandchildren: 0 Communication Needs: None Education Level: high school Do you need help understanding health information?: Never Pets and animals: No Sexually active: Yes Do you think of yourself as: straight/heterosexual Current gender identity: female What is your relationship status?: living with partner How often do you talk on the phone with friends or family?: once per week How often do you get together with friends or relatives?: twice per week How often do you attend sikh or worship services?: 1-3 times per year Do you belong to any clubs or organized social groups?: no Panel score (0-1 are the most socially isolated patients): 2 What type of physical activity do you participate in: walking Duration: < 15 minutes/day Frequency: 1-2 times per week Genevieve/Methodist: Tenriism Special genevieve needs: No Seatbelt use: always Helmet use: No Drive intox or ride w/intox medical delivery driver: No Firearms in home: No Do you feel safe at home: Yes Do you feel safe in your relationship?: Yes Would you like helpful sources: No History History 3 Para 3 Hx # Term Pregnancies Multiple births Hx # Pregnancies Ectopic pregnancies AB induced Hx Number of Living Children 3 AB spontaneous Past Pregnancies Del. Date GA/Weeks # Preg Succ Route Wgt Sex Labor Lgth Anesthesia Location Prov Complic 10/22/06 No Male [place] 10/03/11 Male [place] 01/14/13 No vaginal 2267.962 g Female at home unknown preg
== END 2025-04-19 11:56 | disposition home or self-care (01) ==
PROVIDERS: Emergency Provider Student in an Organized Health Care Education/Training Program; PCP Nurse Practitioner Family
DX: M54.50 Low back pain, unspecified (principal); G89.29 Other chronic pain; Z59.01 Sheltered homelessness; Z59.19 Other inadequate housing
CPT/HCPCS: 96372; 99284; 99283; J1885